=== PATIENT | female | born 1990 | race Two or more races ===

== ENCOUNTER 2016-02-18 20:28 | Outpatient (CLI) | payer SELFPAY ==
[2016-02-18 21:14] LABS: APPEARANCE,URINE SLIGHTLY-CLOUDY; BILIRUBIN,URINE NEGATIVE (NEGATIVE); GLUCOSE, URINE NEGATIVE (NEGATIVE); KETONES,URINE NEGATIVE (NEGATIVE); LEUKOCYTE ESTERASE,URINE LARGE (NEGATIVE); NITRITE,URINE NEGATIVE (NEGATIVE); PROTEIN,URINE NEGATIVE (NEGATIVE); URINE SPECIFIC GRAVITY 1.009; UROBILINOGEN,URINE NEGATIVE mg/dL (<2.0)
[2016-02-18 21:25] LABS: AMNISURE (ROM) NEGATIVE (NEGATIVE)
[2016-02-18 21:35] LABS: URINE BARBITURATES SCREEN NEGATIVE; URINE METHADONE SCREEN NEGATIVE; URINE PHENCYCLIDINE SCREEN NEGATIVE
[2016-02-18] MEDS ORDERED: HYDROXYZINE PAMOATE 50 MG CAPSULE ONE (22:31)
--- NOTE | 2016-02-18 23:15 | Non Stress Test Report ---
Non Stress Test Datetime Report Generated by CPN: 02/18/2016 23:15 DEMOGRAPHIC Test Number: 2 EGA NST: 37.6 INDICATION Indication for Study: Ordered by Provider VITAL SIGNS Temperature - NST: 98.1 Pulse - NST: 86 RESP - NST: 18 NBPSYS NST: 116 NBPDIA NST: 79 URINE RESULTS Urine Protein, NST: Negative Urine Ketones - NST: Negative Urine Glucose - NST: Negative Urine Blood - NST: Negative MONITORING Monitor Explained: Monitor Explained; Test Explained; Patient Verbalized Understanding Time on Monitor: 02/18/2016 20:59 Time off Monitor: 02/18/2016 22:32 NST Duration: 93 NST INTERVENTIONS NST Interventions: PO Hydration Physician Notified NST: Dr. Neilsen BABY A: [id number] BABY A Movement : Present Contraction Frequency : irregular with uterine irritability FHR Baseline : 130 Accelerations : 15X15 Decelerations : None Variability : Moderate 6-25bpm NST Review: Meets Criteria for Reactive NST NST Review and Verified By : Elo Wilde RN NST Results: Reactive NST REPORT Report Trigger: Send Report
--- NOTE | 2016-02-19 04:46 | L&D Discharge Summary ---
OB Discharge Summary Datetime Report Generated by CPN: 02/19/2016 04:45 DISCHARGE DIAGNOSIS Diagnosis/Symptoms: Reassuring Surveillance - Annotate Details; False Labor Gestation: 37.6 Number of Babies in Womb: 1 Parity: 1 DIET/ACTIVITY/RESTRICTIONS Diet: Regular Activity: Normal Activity TEACHING/INSTRUCTIONS/REFERRALS Unable to Give Instructions: patient was provided written instructions in maldivian Instructions Given To: patient Instructions Understood: Patient Verbalized Understanding; Support Person Verbalized Understanding Referrals: None Educational Materials- Other: kick counts and early labor signs given in maldivian verbally with galley cook and on paper DISCHARGE INFORMATION Discharged AMA: No Discharge Date/Time: 02/18/2016 22:48 Discharged To: Home Discharge Provider Name: Dr. Moraes Accompanied By: Child Discharge Method: Wheelchair Condition: Stable FOLLOW UP INFORMATION Follow Up With: [facility] Follow Up On: As Scheduled Follow Up Phone Number: [facility] - Comments: Comfort measures, s/s to report to provider, PO hydration (Annotations: Data stored by Trisha on behalf of user)
--- NOTE | 2016-02-19 04:46 | L&D Admission Assessment ---
LD ADM ASMT Datetime Report Generated by CPN: 02/19/2016 04:45 PATIENT ASSESSMENT Assessment Type: Triage (02/18/2016 20:58:Krista Muir RN) PAIN Pain Scale: 4 (02/18/2016 21:10:Krista Muir RN) Pain Presence: Intermittent (02/18/2016 21:10:Krista Muir RN) Pain Type: Contraction; Pressure; Ache (02/18/2016 21:10:Krista Kossmann, RN) Pain Location: Abdomen (02/18/2016 21:10:Krista Muir RN) CONTRACTIONS Frequency (min): irregular with uterine irritability (02/18/2016 22:30:Krista Muir RN) Frequency (min): irregular with uterine irritability (02/18/2016 22:00:Krista Muir RN) Frequency (min): uterine irritability (02/18/2016 21:30:Krista Muir RN) Duration (sec): 30-170 (02/18/2016 22:30:Krista Muir RN) Duration (sec): 30-70 (02/18/2016 22:00:Krista Muir RN) Quality: Mild (02/18/2016 22:30:Krista Muir RN) Quality: Mild (02/18/2016 22:00:Krista Muir RN) Resting Tone [place]: Relaxed (02/18/2016 22:30:Krista Muir RN) Resting Tone [place]: Relaxed (02/18/2016 22:00:Krista Muir RN) Resting Tone [place]: Relaxed (02/18/2016 21:30:Krista Muir RN) VAGINAL EXAM Dilatation (cm): 1.0 (02/18/2016 22:05:Krista Muir RN) Effacement (%): thick (02/18/2016 22:05:Krista Muir RN) Station: -3 (02/18/2016 22:05:Krista Muir RN) Station: -3 (02/18/2016 21:03:Krista Muir RN) NEURO Level of Consciousness: Fully Conscious (02/18/2016 20:58:Krista Muir RN) DTR's/Clonus: DTRs 2+; No Clonus (02/18/2016 20:58:Krista Muir RN) Headache: Denies (02/18/2016 20:58:Krista Muir RN) Dizziness: No (02/18/2016 20:58:Krista Muir RN) Blurred Vision: No (02/18/2016 20:58:Krista Muir RN) Extremity Numbness/Tingling : None (02/18/2016 20:58:Krista Muir RN) Extremity Movement: Full Range of Motion (02/18/2016 20:58:Krista Muir RN) CARDIOVASCULAR Heart Rhythm: Regular (Annotations: s1s2 on auscultation with no evidence of murmur ) (02/18/2016 20:58:Krista uMir RN) Nailbeds: [place] (02/18/2016 20:58:Krista Muir RN) Capillary Refill: Less than 3 Seconds (02/18/2016 20:58:Krista Muir RN) Lower Extremities Edema: Bilateral Lower Extremities (02/18/2016 20:58:Krista Muir RN) Lower Extremities Edema Degree: mild dependent edema noted at the ankles (02/18/2016 20:58:Krista Muir RN) Upper Extremities Edema: None (02/18/2016 20:58:Krista Muir RN) Upper Extremities Edema Degree: None (02/18/2016 20:58:Krista Muir RN) Facial Edema: None (02/18/2016 20:58:Krista Muir RN) Ara's Sign Left Leg: Negative (02/18/2016 20:58:Krista Muir RN) Ara's Sign Right Leg: Negative (02/18/2016 20:58:Krista Muir RN) DVT RISK ASSESSMENT DVT Risk Age: Age less than 41 years (02/18/2016 20:58:Krista Muir RN) DVT Risk BMI: BMI 31 to 40 (02/18/2016 20:58:Krista Muir RN) DVT Risk Surgery: None Applicable (02/18/2016 20:58:Krista Muir RN) DVT Risk Other: Women Only- or (<1 month) (02/18/2016 20:58:Krista Muir RN) DVT Risk Total: 2 (02/18/2016 20:58:QS system process) DVT Risk Text: Moderate Risk (10-20%) - Consider stockings, compresssion device, pharmacological therapy per hospital policy (02/18/2016 20:58:QS system process) RESPIRATORY Respiratory Effort: Unlabored; Regular Rhythm; Equal Expansion (02/18/2016 20:58:Krista Muir RN) Breath Sounds, Left: Clear and Equal (02/18/2016 20:58:Krista Muir RN) Breath Sounds, Right: Clear and Equal (02/18/2016 20:58:Krista Muir RN) Cough Productivity: None (02/18/2016 20:58:Krista Muir RN) GASTROINTESTINAL Nausea/Vomiting: Hx of Nausea/Vomiting (Annotations: one episode of vomitting daily x 2 days ) (02/18/2016 20:58:Krista Muir RN) Bowel Sounds: Normoactive; All Quadrants (02/18/2016 20:58:Krista Muir RN) RUQ Epigastric Pain: Denies (02/18/2016 20:58:Krista Muir RN) Bowel Patterns: Soft, Formed Stool (02/18/2016 20:58:Krista Muir RN) Hemorrhoids: None (02/18/2016 20:58:Krista Muir RN) Diet Type: Regular diet (02/18/2016 20:58:Krista Muir RN) GENITOURINARY Bladder: Nondistended (02/18/2016 20:58:Krista Muir RN) Frequency of Urination: No (02/18/2016 20:58:Krista Muir RN) Urination Burning: No (02/18/2016 20:58:Krista Muir RN) CVA Tenderness: No (02/18/2016 20:58:Krista Muir RN) Vaginal Discharge Amount: Moderate (02/18/2016 20:58:Krista Muir RN) Vaginal Discharge Color: white to yellow discharge (02/18/2016 20:58:Krista Muir RN) Vaginal Discharge Odor: Non-Odorous (02/18/2016 20:58:Krista Muir RN) Vaginal Discharge Character: Thin; Thick (02/18/2016 20:58:Krista Muir RN) INTEGUMENTARY Skin Color: Normal for Race (02/18/2016 20:58:Krista Muir RN) Skin Temperature: Warm (02/18/2016 20:58:Krista Muir RN) Skin Moisture: Dry (02/18/2016 20:58:Krista Muir RN) RILEY SKIN ASSESSMENT Riley Scale Sensory Perception: No Impairment- Responds to verbal commands. Has no sensory deficit which would limit ability to feel or voice pain or discomfort (02/18/2016 20:58:Krista Muir RN) Riley Scale Moisture: Rarely Moist- Skin is usually dry. Linen only requires changing at routine intervals (02/18/2016 20:58:Krista Muir RN) Riley Scale Activity: Walks Frequently- Walks outside the room at least twice a day and inside room at least every 2 hours during the day. (02/18/2016 20:58:Krista Muir RN) Riley Scale Mobility: No Limitations- Makes major and frequent changes in position without assistance (02/18/2016 20:58:Krista Muir RN) Riley Scale Nutrition: Excellent- Eats most of every meal. Never refuses a meal. Usually eats a total of 4 or more servings of meat and dairy products. Occasionally eats between meals. Does not require supplementation (02/18/2016 20:58:Krista Muir RN) Riley Scale Friction and Shear: No Apparent Problem- Moves in bed and in chair independently and has sufficient muscle strength to lift up completely during move. Maintains good position in bed or chair at all times (02/18/2016 20:58:Krista Muir RN) Riley Scale Total: 23 (02/18/2016 20:58:QS system process) Riley Scale Risk: No Risk of Pressure Ulcer Noted at this Time (02/18/2016 20:58:QS system process) SUPPORT Family Support: Child(john) visited (02/18/2016 20:58:Krista Muir RN) Emotional State: Calm/Relaxed (02/18/2016 20:58:Krista Muir RN) SAFETY Call [place] Within Reach: Yes (02/18/2016 20:58:Krista Muir RN) Side Rails Up: Yes (02/18/2016 20:58:Krista Muir RN) Bed Wheels Locked: Yes (02/18/2016 20:58:Krista Muir RN) Arm Bands Present: Yes (02/18/2016 20:58:Krista Muir RN) Isolation: [place] (02/18/2016 20:58:Krista Muir RN) FALL SCREEN Fall Risk History of Falling: (0) No (02/18/2016 20:58:Krista Muir RN) Fall Risk Secondary Diagnosis: (0) No (02/18/2016 20:58:Krista Muir RN) Fall Risk Ambulatory Aid: (0) None/Bedrest/Wheelchair/Nurse Assist (02/18/2016 20:58:Krista Muir RN) Fall Risk IV Therapy: (0) No (02/18/2016 20:58:Krista Muir RN) Fall Risk Gait: (0) Normal/Bedrest/Immobile (02/18/2016 20:58:Krista Muir RN) Fall Risk Mental Status: (0) Oriented to Own Ability (02/18/2016 20:58:Krista Muir RN) Fall Risk Score: 0 (02/18/2016 20:58:QS system process) Fall Risk Score Definition: No Risk: No action required (02/18/2016 20:58:QS system process) RECENT TRAVEL/INFECTIOUS DISEASE Recent Exp Communicable Disease: No (02/18/2016 20:58:Krista Muir RN) Cough or Fever: No (02/18/2016 20:58:Krista Muir RN) Foreign Travel Past 10 Days: No (02/18/2016 20:58:Krista Muir RN) Open Wounds or Sores: No (02/18/2016 20:58:Krista Muir RN) Prior Antibiotic Resistance Tx: No (02/18/2016 20:58:Krista Muir RN) Cultures Obtained: Not Applicable (02/18/2016 20:58:Krista Muir RN) Isolation Initiated: No (02/18/2016 20:58:Krista Muir RN) Pt/Family Education: Handwashing Hygiene (02/18/2016 20:58:Krista Muir RN) BABY A FHR Baseline Rate (bpm) Baby A: 135 (02/18/2016 22:30:Krista Muir RN) FHR Baseline Rate (bpm) Baby A: 135 (02/18/2016 22:00:Krista Muir RN) FHR Baseline Rate (bpm) Baby A: 130 (02/18/2016 21:30:Krista Muir RN) Variability Baby A: Moderate 6-25 bpm (02/18/2016 22:30:Krista Muir RN) Variability Baby A: Moderate 6-25 bpm (02/18/2016 22:00:Krista Muir RN) Variability Baby A: Moderate 6-25 bpm (02/18/2016 21:30:Krista Muir RN) Accelerations Baby A: 15X15 (02/18/2016 22:30:Krista Muir RN) Accelerations Baby A: 15X15 (02/18/2016 22:00:Krista Muir RN) Accelerations Baby A: 15X15 (02/18/2016 21:30:Krista Muir RN) Decelerations Baby A: None (02/18/2016 22:30:Krista Muir RN) Decelerations Baby A: None (02/18/2016 22:00:Krista Muir RN) Decelerations Baby A: None (02/18/2016 21:30:Krista Muir RN)
--- NOTE | 2016-02-19 04:46 | L&D General Admission ---
General Admit Datetime Report Generated by CPN: 02/19/2016 04:45 INFORMATION Baby, Number in Womb: 1 (02/18/2016 22:48:Krista Kossmann, RN) ALLERGIES Medication Allergies: No Known Allergies (02/18/2016) (02/18/2016 23:24:QS system process)
--- NOTE | 2016-02-19 04:46 | Antepartum Discharge Summary ---
Antepartum DC Datetime Report Generated by CPN: 02/19/2016 04:45 DIET/ACTIVITY/RESTRICTIONS Diet: Regular (02/18/2016 22:48:Krista Muir, RN) Activity: Normal Activity (02/18/2016 22:48:Krista Wood, RN) TEACHING/INSTRUCTIONS/REFERRALS Instructions Given To: patient (02/18/2016 22:48:Krista Muir, RN) Instructions Understood: Patient Verbalized Understanding; Support Person Verbalized Understanding (02/18/2016 22:48:Krista Muir RN) Unable to Give Instructions: patient was provided written instructions in cook islander (02/18/2016 22:48:Krista Muir RN) Referrals: None (02/18/2016 22:48:Krista Muir RN) Educational Materials- Other: kick counts and early labor signs given in cook islander verbally with health and wellness advisor and on paper (02/18/2016 22:48:Krista Muir RN) DISCHARGE INFORMATION Discharged AMA: No (02/18/2016 22:48:Krista Muir RN) Discharge Date/Time: 02/18/2016 22:48 (02/18/2016 22:48:Krista Muir RN) Discharged To: Home (02/18/2016 22:48:Krista Muir RN) Discharge Provider Name: Dr. Moraes (02/18/2016 22:48:Krista Muir RN) Discharge Method: Wheelchair (02/18/2016 22:48:Krista Muir RN) Condition: Stable (02/18/2016 22:48:Krista Muir RN) FOLLOW UP INFORMATION Follow Up With: [facility] Department (02/18/2016 22:48:Krista Muir RN) Follow Up On: As Scheduled (02/18/2016 22:48:Krista Muir RN)
--- NOTE | 2016-02-19 04:46 | L&D Flow Sheet ---
LD Flowsheet Datetime Report Generated by CPN: 02/19/2016 04:45 Datetime: 02/18/2016 22:48 Communication Additional Nursing Comments: Discharged home via wheelchair (Krista Kossmann, RN) Datetime: 02/18/2016 22:40 Medications Analgesics/Sedatives: vistaril 50mg po (Krista Kossmann, RN) Datetime: 02/18/2016 22:30 Uterine Activity Monitor Mode: External; Palpation (Krista Kossmann, RN) Frequency (min): irregular with uterine irritability (Krista Kossmann, RN) Quality: Mild (Krista Kossmann, RN) Duration (sec): 30-170 (Krista Kossmann, RN) Resting Tone (Palpate): Relaxed (Krista Kossmann, RN) Assessment A Monitor Mode: External US (Krista Peymansmann, RN) FHR Baseline Rate : 135 (Krista Kossmann, RN) Variability: Moderate 6-25 bpm (Krista Kossmann, RN) Accelerations: 15X15 (Krista Kossmann, RN) Decelerations: None (Krista Kossmann, RN) Datetime: 02/18/2016 22:21 Communication Comments: Dr. Moraes aware of patient status, sve, amnisure negative, ua results. Orders to discharge home with vistaril 50mg po (Krista Peymansmann, RN) Datetime: 02/18/2016 22:10 Vital Signs NBP Sys/Arlin/Mean (mmHg): 116 (QS system process) : 79 (QS system process) : 91 (QS system process) Pulse: 86 (QS system process) LaborFlag: Antepartum (QS system process) Datetime: 02/18/2016 22:05 Vaginal Exam Dilatation (cm): 1.0 (Krista Muir RN) Effacement (%): thick (Krista Muir RN) Station: -3 (Krista Muir RN) Exam by: MADELINE Muir (Annotations: old blood noted on glove during sve) (Krista Muir RN) Datetime: 02/18/2016 22:00 Uterine Activity Monitor Mode: External; Palpation (Krista Muir RN) Frequency (min): irregular with uterine irritability (Krista Muir RN) Quality: Mild (Krista Muir RN) Duration (sec): 30-70 (Krista Kossmann, RN) Resting Tone (Palpate): Relaxed (Krista Somann, RN) Assessment A Monitor Mode: External US (Krista Somann, RN) FHR Baseline Rate : 135 (Krista Peymansmann, RN) Variability: Moderate 6-25 bpm (Krista Peymansmann, RN) Accelerations: 15X15 (Krista Peymansmann, RN) Decelerations: None (Krista Peymansmann, RN) Datetime: 02/18/2016 21:41 Vital Signs NBP Sys/Arlin/Mean (mmHg): 121 (QS system process) : 70 (QS system process) : 90 (QS system process) Pulse: 83 (QS system process) LaborFlag: Antepartum (QS system process) Datetime: 02/18/2016 21:30 Uterine Activity Monitor Mode: External; Palpation (Krista Muir RN) Frequency (min): uterine irritability (Krista Muir RN) Resting Tone (Palpate): Relaxed (Krista Muir, RN) Assessment A Monitor Mode: External US (Krista Muir, RN) FHR Baseline Rate : 130 (Krista Muir, RN) Variability: Moderate 6-25 bpm (Kristakelsy Muir, RN) Accelerations: 15X15 (Krista Peymansmann, RN) Decelerations: None (Krista Muir, RN) Datetime: 02/18/2016 21:10 Vital Signs NBP Sys/Arlin/Mean (mmHg): 121 (QS system process) : 74 (QS system process) : 92 (QS system process) Pulse: 77 (QS system process) Respirations: 18 (Krista Muir, RN) Pain Pain Scale: 4 (Krista Muir, RN) Pain Presence: Intermittent (Krista Muir, RN) Pain Type: Contraction; Pressure; Ache (Krista Muir, RN) Pain Location: Abdomen (Krista Muir, RN) Pain Relief Measures: Comfort Measures (Krista Muir, RN) Pain Coping: Talking Through Contractions; Breathing Through Contractions (Krista Muir, RN) LaborFlag: Antepartum (QS system process) Datetime: 02/18/2016 21:03 Station: -3 (Krista Muir, RN) Exam by: Ar Muir (Gia Ring, RN) Vaginal Bleeding: None (Gia Ring, RN) Cervix, Consistency: Soft (Gia Ring, RN) Cervix, Position: Posterior (Gia Ring, RN) Vaginal Exam Comments: 1.5 (outer os); 1 (inner os)/thick and long (Krista Muir, RN) Datetime: 02/18/2016 20:58 Vaginal Bleeding: Scant (Annotations: patient states spotting ) (Krista Muir RN) Maternal Assessment Level of Consciousness: Fully Conscious (Krista Muir RN) DTR's/Clonus: DTRs 2+; No Clonus (Krista Muir RN) Headache: Denies (Krista Muir RN) Breath Sounds, Left: Clear and Equal (Krista Muir RN) Breath Sounds, Right: Clear and Equal (Krista Muir RN) Nausea/Vomiting: Hx of Nausea/Vomiting (Annotations: one episode of vomitting daily x 2 days ) (Krista Muir RN) RUQ Epigastric Pain: Denies (Krista Muir RN)
--- NOTE | 2016-02-19 04:46 | L&D Current Admission ---
Current Admit Datetime Report Generated by CPN: 02/19/2016 04:45 ADMISSION INFORMATION Chief Complaint: Contractions; Suspected Rupture of Membranes (02/18/2016 20:58:Krista Muir RN)
== END 2016-02-18 22:48 | disposition home or self-care (01) ==
LOC: LC 20:28
PROVIDERS: ATTEND Specialist
PROC: 4A1HXCZ Monitoring of Products of Conception, Cardiac Rate, External Approach (ICD-10-PCS; principal; 2016-02-18)
DX: O47.1 False labor at or after 37 completed weeks of gestation (principal); Z3A.37 37 weeks gestation of pregnancy
CPT/HCPCS: 59025; 84112; 81005; G0479; 80307

== ENCOUNTER 2016-02-23 09:35 | Outpatient (CLI) | payer SELFPAY ==
[2016-02-23 10:14] LABS: APPEARANCE,URINE TURBID; BILIRUBIN,URINE NEGATIVE (NEGATIVE); GLUCOSE, URINE NEGATIVE (NEGATIVE); KETONES,URINE NEGATIVE (NEGATIVE); LEUKOCYTE ESTERASE,URINE LARGE (NEGATIVE); NITRITE,URINE NEGATIVE (NEGATIVE); PROTEIN,URINE 30 mg/dL (NEGATIVE); URINE SPECIFIC GRAVITY 1.009; UROBILINOGEN,URINE NEGATIVE mg/dL (<2.0)
[2016-02-23 10:32] LABS: AMNISURE (ROM) NEGATIVE (NEGATIVE)
[2016-02-23 10:41] LABS: URINE BARBITURATES SCREEN NEGATIVE; URINE METHADONE SCREEN NEGATIVE; URINE PHENCYCLIDINE SCREEN NEGATIVE
--- NOTE | 2016-02-23 10:59 | Non Stress Test Report ---
Non Stress Test Datetime Report Generated by CPN: 02/23/2016 10:59 DEMOGRAPHIC EGA NST: 38.4 INDICATION Indication for Study: Other Indication for Study (NST) Other: LC MONITORING Monitor Explained: Monitor Explained; Test Explained; Patient Verbalized Understanding Time on Monitor: 02/23/2016 10:27 Time off Monitor: 02/23/2016 10:57 NST Duration: 30 NST INTERVENTIONS NST Interventions: PO Hydration; Reposition Patient Physician Notified NST: ABIMAEL BABY A Movement : Present Contraction Frequency : 8-10 FHR Baseline : 130 Accelerations : 15X15 Decelerations : None Variability : Moderate 6-25bpm NST Review: Meets Criteria for Reactive NST NST Review and Verified By : Millie Grayson RN NST Results: Reactive NST REPORT Report Trigger: Send Report
--- NOTE | 2016-02-26 11:01 | Antepartum Discharge Summary ---
Antepartum DC Datetime Report Generated by CPN: 02/26/2016 11:01 Diet: Regular (02/23/2016 10:59:Tonny Grayson RN) Activity: Normal Activity (02/23/2016 10:59:Tonny Grayson RN) Instructions Given To: PT (02/23/2016 10:59:Tonny Grayson RN) Instructions Understood: Patient Verbalized Understanding; Support Person Verbalized Understanding (02/23/2016 10:59:Tonny Grayson RN) Referrals: None (02/23/2016 10:59:Tonny Grayson RN) Educational Materials- Other: Kick Counts Early Labor Signs (02/23/2016 10:59:Tonny Grayson RN) Discharged AMA: No (02/23/2016 10:59:Tonny Grayson RN) Discharge Date/Time: 02/23/2016 11:15 (02/23/2016 10:59:Winifred Andrade RN) Discharged To: Home (02/23/2016 10:59:Tonny Grayson RN) Discharge Provider Name: Eli Fish CNM (02/23/2016 10:59:Tonny Grayson RN) Discharge Method: Ambulatory (02/23/2016 10:59:Tonny Grayson RN) Condition: Stable (02/23/2016 10:59:Tonny Grayson RN) Follow Up With: [facility] (02/23/2016 10:59:Tonny Grayson RN) Follow Up On: As Scheduled (02/23/2016 10:59:Tonny Grayson RN) Follow Up Phone Number: [facility] - (02/23/2016 10:59:Tonny Grayson RN) Comments: Provider aware of pain stated / (02/23/2016 10:59:Winifred Andrade RN) Contractions: Contractions or cramps become more frequent than 8 in one hour or 4 in 20 minutes; Regular painful contractions every 5 minutes or less for one hour. Time your contractions from the beginning of one to the beginning of the next (02/23/2016 10:59:Tonny Grayson RN) Pressure: Pressure in your vagina or lower abdomen that may feel like the baby is pushing down (02/23/2016 10:59:Tonny Grayson RN) Period Like Cramps: Period-like cramps or low dull backache that may come and go (02/23/2016 10:59:Tonny Grayson RN) Cramps/Diarrhea: Abdominal cramps that may be accompanied by diarrhea (02/23/2016 10:59:Tonny Grayson RN) Gush of Fluid/Blood: Gush of fluid or blood from your vagina (it is normal to have spotting after vaginal exam or intercourse) (02/23/2016 10:59:Tonny Grayson RN) Vaginal Discharge: Change in the type or amount of vaginal discharge (02/23/2016 10:59:Tonny Grayson RN) Decreased Movement: Your baby is not moving as much as usual- 4 movements in 1 hour after drinking and resting on side (02/23/2016 10:59:Tonny Grayson RN) Temperature: Temperature greater than 100.0(F) orally (02/23/2016 10:59:Tonny Grayson RN) Hypertension Signs/Symptoms: Severe headache which is not relieved 30 minutes after taking Tylenol(Acetaminophen); Blurry vision or spots before your eyes; Severe heartburn or pain on the upper right side of your abdomen that is not relieved by an antacid; Increased swelling in your face, hands or feet (02/23/2016 10:59:Tonny Grayson RN) Urinary Output: Decreased urinary output or dark colored urine (02/23/2016 10:59:Tonny Grayson RN) N/V [place]/Crackers: Keep dry toast/crackers with you to [facility] on (02/23/2016 10:59:Tonny Grayson RN) N/V Frequent Meals: Eat small frequent meals (02/23/2016 10:59:Tonny Grayson RN) N/V Empty Stomach: Try to keep something in your stomach (don't let your stomach get empty) (02/23/2016 10:59:Tonny Grayson RN) N/V Time Getting Up: Take your time getting up (02/23/2016 10:59:Tonny Grayson RN) N/V Avoid Smells: Avoid smells that make you feel sick (02/23/2016 10:59:Tonny Grayson RN) Travel Seatbelts: Wear seatbelts or safety/lap belts (02/23/2016 10:59:Tonny Grayson RN) Travel Walk Frequently: Walk frequently, every 1-2 hours (02/23/2016 10:59:Tonny Grayson RN) Travel Comfort Clothes: Wear clothing that does not constrict and comfortable shoes (02/23/2016 10:59:Tonny Grayson RN) Travel Light Snack: Keep a light snack (e.g. dry crackers) with you at all times to prevent nausea (02/23/2016 10:59:Tonny Grayson RN) Travel Hydration: Drink plenty of water, low sodium and noncaffeinated drinks (02/23/2016 10:59:Tonny Grayson RN) Travel Medications: DO NOT take any medication that is not approved by your physician first (02/23/2016 10:59:Tonny Grayson RN) Travel PN Records: Always keep a copy of your medical record with you just in case (02/23/2016 10:59:Tonny Grayson RN) Edema Avoid Standing: Avoid standing for long periods, keep legs up when you can (02/23/2016 10:59:Tonny Grayson RN) Edema Rest on Side: When resting, lie on your side (left is best) (02/23/2016 10:59:Tonny Grayson RN) Edema Limit Sodium: Limit the amount of salty foods you eat (02/23/2016 10:59:Tonny Grayson RN) Edema Support Hose: Try to wear support hose as much as possible (02/23/2016 10:59:Tonny Grayson RN) Exercise Overheating: Avoid situations that would cause you to become overheated (02/23/2016 10:59:Tonny Grayson RN) Exercise Weather: Exercise outdoors only if the weather is reasonable and not too hot (02/23/2016 10:59:Tonny Grayson RN) Exercise Exertion: Do not over exert yourself when you exercise (02/23/2016 10:59:Tonny Grayson RN) Exercise Hydration: Drink plenty of fluids, especially water (02/23/2016 10:59:oTnny Grayson RN) Exercise Support: Wear good support hose, bra and shoes when exercising (02/23/2016 10:59:Tonny Grayson RN) Varicose Veins Instructions: Do not stand for long periods of time (02/23/2016 10:59:Tonny Grayson RN) Varicose Veins Elevate Sit: Try to keep your legs elevated when you are sitting (02/23/2016 10:59:Tonny Grayson RN) Varicose Veins Elevate Lying: When lying down, keep your legs elevated (02/23/2016 10:59:Tonny Grayson RN) Varicise Veins Non Binding: When wearing stockings or socks, make sure they are not too tight and bind your legs (02/23/2016 10:59:Tonny Grayson RN) Varicose Veins Support: Wear support hose/stockings at all times (02/23/2016 10:59:Tonny Grayson RN) Varicose Veins Periodic Move: If you have a job where you sit a lot, get up periodically and walk around (02/23/2016 10:59:Tonny Grayson RN)
--- NOTE | 2016-02-26 11:02 | L&D General Admission ---
General Admit Datetime Report Generated by CPN: 02/26/2016 11:02 INFORMATION Patient Age: 25 (11/07/2015 16:59:QS system process) EDC: 03/04/2016 00:00 (11/07/2015 17:09:Chester Burk RN) : 2 (11/07/2015 17:09:Chester Burk RN) Para: 1 (02/23/2016 10:59:Winifred Andrade RN) Para: 1 (02/03/2016 17:57:Winifred Will RN) Para: 1 (11/07/2015 17:09:Chester Burk RN) Term: 1 (11/07/2015 17:09:Chester Burk RN) : 0 (11/07/2015 17:09:Chester Burk RN) Spontaneous Abortions: 0 (11/07/2015 17:09:Chester Burk RN) Induced Abortions: 0 (11/07/2015 17:09:Chester Burk RN) Livin (11/07/2015 17:09:Chester Burk RN) Cesareans: 0 (11/07/2015 17:09:Chester Burk RN) VBACs: 0 (11/07/2015 17:09:Chester Burk RN) Ectopic: 0 (11/07/2015 17:09:Chester Burk RN) Multiple Births: 0 (11/07/2015 17:09:Chester Burk RN) Baby, Number in Womb: 1 (02/23/2016 10:59:Winifred Andrade RN) Baby, Number in Womb: 1 (02/18/2016 22:48:Krista Muir RN) Baby, Number in Womb: 1 (02/03/2016 17:57:Winifred Will RN) Baby, Number in Womb: 1 (11/07/2015 17:09:Chester Burk RN) CARE Primary Human Service Worker: [facility] (11/07/2015 17:09:Chester Burk RN) Adequate Care: Yes (11/07/2015 17:09:Winifred Will RN) Height (in): 62 (02/23/2016 10:18:QS system process) Height (in): 61 (02/03/2016 16:32:QS system process) Height (in): 61 (02/03/2016 16:28:QS system process) ALLERGIES Medication Allergy: No (11/07/2015 17:09:Chester Burk RN) Medication Allergies: No Known Allergies (02/23/2016) (02/23/2016 10:18:QS system process) Medication Allergies: No Known Allergies (02/18/2016) (02/18/2016 23:24:QS system process) Medication Allergies: No Known Allergies (02/03/2016) (02/03/2016 16:25:QS system process) Medication Allergies: No Known Allergies (11/07/2015) (11/07/2015 19:20:QS system process) Medication Allergies: No Known Allergies (07/25/2015) (11/07/2015 16:59:QS system process) Food Allergies: None (11/07/2015 17:09:Winifred Will RN) Environmental Allergies: None (11/07/2015 17:09:Winifred Will RN) COMMUNICATION Primary Language: Hong Konger (11/07/2015 17:09:Chester Burk RN) Medical Tx Preferred Language: Hong Konger; Castilian (11/07/2015 17:09:Chester Burk RN) Syriac Communication Ability: 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, 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 (11/07/2015 17:09:Chester Burk RN) Communication Barrier(s): Language barrier (11/07/2015 17:09:Chester Burk RN) DEMOGRAPHICS Address: [address] [place] [id number] (11/07/2015 16:59:QS system process) Zipcode: [phone] (11/07/2015 16:59:QS system process) Home (11/07/2015 16:59:QS system process) SSN: [id number] (11/07/2015 16:59:QS system process) Next of Kin Name: ELIN CLAROS (11/07/2015 16:59:QS system process) Next of Kin (11/07/2015 16:59:QS system process) Next of Kin Relationship: SPO (11/07/2015 16:59:QS system process) Date of : 1990 (11/07/2015 16:59:QS system process) Marital Status: Single (11/07/2015 16:59:QS system process) Sex: Female (11/07/2015 16:59:QS system process) Race: Other (11/07/2015 16:59:QS system process) Ethnicity: or (11/07/2015 16:59:QS system process) Sabianist: Other (11/07/2015 16:59:QS system process) DRUG AND ALCOHOL USE Alcohol: No (11/07/2015 17:09:Winifred Will RN) Cigarettes: Never Smoker. [id number] (11/07/2015 17:09:Winifred Will RN) Marijuana: No (11/07/2015 17:09:Winifred Will RN) Cocaine: No (11/07/2015 17:09:Winifred Will RN) Other Illicit Drugs: No (11/07/2015 17:09:Winifred Will RN) VACCINE HISTORY Influenza Vaccine: Yes (11/07/2015 17:09:Gia Ring, RN) Tetanus Vaccine: Yes (11/07/2015 17:09:Gia Ring, RN) Tdap Vaccine: Yes (11/07/2015 17:09:Gia Ring, RN) Hepatitis B Vaccine: No (11/07/2015 17:09:Gia Ring, RN) Applications Developer: [facility] (11/07/2015 17:09:Gia Houston RN) Feeding Preference: Both (11/07/2015 17:09:Gia Houston RN) Benefit of Breast Feed Discussed: Yes (11/07/2015 17:09:Gia Houston RN) Circumcision: No (11/07/2015 17:09:Gia Houston RN) Tubal Ligation: No (11/07/2015 17:09:Gia Houston RN) Tubal Authorization Signed: N/A (11/07/2015 17:09:Gia Houston RN) Consent: N/A (11/07/2015 17:09:Gia Houston RN) Consent Signed: N/A (11/07/2015 17:09:Gia Houston RN) Pain Management Plans: Natural; Medications (11/07/2015 17:09:Gia Houston RN) Plans for Labor and Delivery: None (11/07/2015 17:09:Gia Houston RN) Support Person: Markel (11/07/2015 17:09:Gia Houston RN) Support Person Relationship: (11/07/2015 17:09:Gia Houston RN) Cultural/Spritual Practice: No (11/07/2015 17:09:Gia Houston RN) Spir/Cult Dietary Needs: No (11/07/2015 17:09:Gia Houston RN) LIVING SITUATION/DISCHARGE PLAN Living Arrangements: House (11/07/2015 17:09:Gia Houston RN) Adequate Access to:: Electric; Heat; Refrigeration; Plumbing/Running water; Phone; Transportation (11/07/2015 17:09:Gia Houston RN) WIC Program: No (11/07/2015 17:09:Gia Houston RN) Discharge Lead Front Desk Agent Person: Markel (11/07/2015 17:09:Gia Houston RN) Person to Help after Discharge: Markel (11/07/2015 17:09:Gia Houston RN) Currently Using Commun Resources: No (11/07/2015 17:09:Gia Houston RN) Outside Agency/Test Designer: N/A (11/07/2015 17:09:Gia Houston RN) Car Seat for Discharge: Yes (11/07/2015 17:09:Gia Houston RN) Adoption Requested: Yes (11/07/2015 17:09:Gia Houston RN) Pt Contact w/infant Post : N/A (11/07/2015 17:09:Gia Houston RN) OB/PREVIOUS HISTORY Previous Procedures: Ultrasound (11/07/2015 17:09:Winifred Will RN) Current Procedures: Ultrasound (11/07/2015 17:09:Winifred Will RN) History of Previous : No (11/07/2015 17:09:Winifred Will RN) History of Gestational Diabetes: No (11/07/2015 17:09:Winifred Will RN) History of PIH: No (11/07/2015 17:09:Winifred Will RN) History of Incompetent Cervix: No (11/07/2015 17:09:Winifred Will RN) History of Placenta Previa/Abrup: No (11/07/2015 17:09:Winifred Will RN) History of Macrosomia: No (11/07/2015 17:09:Winifred Will RN) History of IUGR: No (11/07/2015 17:09:Winifred Will RN) History of Hemorrhage: No (11/07/2015 17:09:Winifred Will RN) History of Loss/Stillborn: No (11/07/2015 17:09:Winifred Will RN) History of : No (11/07/2015 17:09:Winifred Will RN) History of D (Rh) Sensitization: No (11/07/2015 17:09:Winifred Will RN) History Recurrent Loss/Stillborn: No (11/07/2015 17:09:Winifred Will RN) History Depression/PP Depression: No (11/07/2015 17:09:Winifred Will RN) History of Uterine Anomaly/JENNIFFER: No (11/07/2015 17:09:Winifred Will RN) History of Infertility: No (11/07/2015 17:09:Winifred Will RN) History of ART Treatment: No (11/07/2015 17:09:Winifred Will RN) History of JENNIFFER: No (11/07/2015 17:09:Winifred Will RN) Comments Obstetrical History: G1 - 05/2009 - at 38wks, 3.249kg (in [facility]) G2 - current (11/07/2015 17:09:Gia Houston RN) MEDICAL HISTORY Med Hx Diabetes: No (11/07/2015 17:09:Winifred Will RN) Med Hx Hypertension: No (11/07/2015 17:09:Winifred Will RN) Med Hx Heart Disease: No (11/07/2015 17:09:Winifred Will RN) Med Hx Autoimmune Disorder: No (11/07/2015 17:09:Winifred Will RN) Med Hx Kidney Disease/UTI: No (11/07/2015 17:09:Winifred Will RN) Med Hx Neurologic/Epilepsy: No (11/07/2015 17:09:Winifred Will RN) Med Hx Psychiatric Disorders: No (11/07/2015 17:09:Winifred Will RN) Med Hx Hepatitis/Liver Disease: No (11/07/2015 17:09:Winifred Will RN) Med Hx Varicosities/Phlebitis: No (11/07/2015 17:09:Winifred Will RN) Med Hx Thyroid Dysfunction: No (11/07/2015 17:09:Winifred Will RN) Med Hx Trauma/Violence: No (11/07/2015 17:09:Winifred Will RN) Med Hx Blood Transfusion: No (11/07/2015 17:09:Winifred Will RN) Med Hx Pulmonary (Asthma,TB): No (11/07/2015 17:09:Winifred Will RN) Med Hx Breast: No (11/07/2015 17:09:Winifred Will RN) Med Hx INFORMATION SCIENTIST Surgery: No (11/07/2015 17:09:Winifred Will RN) Med Hx Hospitalization/Surgery: Yes (11/07/2015 17:09:Gia Houston RN) Med Hx Anesthetic Complications: No (11/07/2015 17:09:Winifred Will RN) Med Hx Abnormal Pap Smear: No (11/07/2015 17:09:Winifred Will RN) Other Medical Diseases: No (11/07/2015 17:09:Winifred Will RN) Med Hx Significant Family Hx: No (11/07/2015 17:09:Winifred Will RN) Details of Med/Surg Hx: Hospitalized for first (11/07/2015 17:09:Gia Houston RN) INFECTIOUS HISTORY Inf Hx Gonorrhea: No (11/07/2015 17:09:Winifred Will RN) Inf Hx Chlamydia: No (11/07/2015 17:09:Winifred Will RN) Inf Hx Syphilis: No (11/07/2015 17:09:Winifred Will RN) Inf Hx HIV/AIDS: No (11/07/2015 17:09:Winifred Will RN) Inf Hx Human Papilloma Virus: No (11/07/2015 17:09:Winifred Will RN) Inf Hx Pt/Partner Genital Herpes: No (11/07/2015 17:09:Winifred Will RN) Inf Hx Tuberculosis/Exposure: No (11/07/2015 17:09:Winifred Will RN) Inf Hx Hepatitis B,C: No (11/07/2015 17:09:Winifred Will RN) Inf Hx Rash or Viral Illness: No (11/07/2015 17:09:Winifred Will RN) GENETIC HISTORY Gen Hx Age >=35 at DANK: No (11/07/2015 17:09:Winifred Will RN) Gen Hx Thalassemia: No (11/07/2015 17:09:Winifred Will RN) Gen Hx Congenital Heart Defect: No (11/07/2015 17:09:Winifred Will RN) Gen Hx Neural Tube Defect: No (11/07/2015 17:09:Winifred Will RN) Gen Hx Down's Syndrome: No (11/07/2015 17:09:Winifred Will RN) Gen Hx Davey-Sachs: No (11/07/2015 17:09:Winifred Will RN) Gen Hx Tami: No (11/07/2015 17:09:Winifred Will RN) Gen Hx Familial Dysautonomia: No (11/07/2015 17:09:Winifred Will RN) Gen Hx Sickle Cell Disease/Trait: No (11/07/2015 17:09:Winifred Will RN) Gen Hx Hemophilia/Blood Disorder: No (11/07/2015 17:09:Winifred Will RN) Gen Hx Muscular Dystrophy: No (11/07/2015 17:09:Winifred Will RN) Gen Hx Cystic Fibrosis: No (11/07/2015 17:09:Winifred Will RN) Gen Hx Huntingtons Chorea: No (11/07/2015 17:09:Winifred Will RN) Gen Hx Mental Retardation/Autism: No (11/07/2015 17:09:Winifred Will RN) Gen Hx Tested for Fragile X: No (11/07/2015 17:09:Winifred Will RN) Gen Hx Other Inher/Chromosomal: No (11/07/2015 17:09:Winifred Will RN) Gen Hx Maternal Metabolic DO: No (11/07/2015 17:09:Winifred Will RN) Gen Hx Pt Father or FOB Defect: No (11/07/2015 17:09:Winifred Will RN) Gen Hx Other Genetic History: No (11/07/2015 17:09:Winifred Will RN) Gen Hx Drugs/Meds since LMP: Yes (11/07/2015 17:09:Gia Houston RN) Gen Hx Medications: pnv, tums, tylenol (11/07/2015 17:09:Gia Houston RN)
--- NOTE | 2016-02-26 11:02 | L&D Flow Sheet ---
LD Flowsheet Datetime Report Generated by CPN: 02/26/2016 11:02 Datetime: 02/23/2016 11:15 Communication Comments: D/C reviewed in Bahamian. Kick Counts and term instructions given. Pt has no questions at this time. Pt ambulated off floor in stable condition (Winifred Andrade RN) Datetime: 02/23/2016 11:04 Dilatation (cm): 2.5 (Winifred Andrade RN) Effacement (%): 50 (Winifred Andrade RN) Station: -3 (Winifred Andrade RN) Exam by: Elo Andrade RN (Winifred Andrade RN) Communication Comments: Monitors removed (Winifred Andrade RN) Datetime: 02/23/2016 11:02 Communication Comments: Orders to recheck cervix and send home if unchanged per H. Abe CNM (Winifred Andrade RN) Datetime: 02/23/2016 11:00 Monitor Mode: External (Winifred Andrade RN) Frequency (min): 8-10 (Winifred Andrade RN) Quality: Mild (Winifred Andrade RN) Duration (sec): 80-90 (Winifred Andrade RN) Resting Tone (Palpate): Relaxed (Winifred Andrade RN) Monitor Mode: External US (Winifred Andrade RN) FHR Baseline Rate : 135 (Winifred Andrade RN) Variability: Moderate 6-25 bpm (Winifred Andrade RN) Accelerations: 15X15 (Winifred Andrade RN) Decelerations: None (Winifred Andrade RN) Datetime: 02/23/2016 10:43 NBP Sys/Arlin/Mean (mmHg): 116 (QS system process) : 75 (QS system process) : 90 (QS system process) Pulse: 70 (QS system process) LaborFlag: Antepartum (QS system process) Datetime: 02/23/2016 10:30 Monitor Mode: External (Winifred Andrade, RN) Frequency (min): 6-10 with uterine irritability (Winifred Andrade, RN) Quality: Mild (Winifred Andrade, RN) Duration (sec): 60-100 (Winifred Andrade, RN) Resting Tone (Palpate): Relaxed (Winifred Andrade, RN) Monitor Mode: External US (Winifred Andrade, RN) FHR Baseline Rate : 135 (Winifred Andrade, RN) Variability: Moderate 6-25 bpm (Winifred Andrade, RN) Accelerations: 15X15 (Winifred Andrade, RN) Decelerations: None (Winifred Andrade, RN) Datetime: 02/23/2016 10:25 Patient Position/Activity: Left Lateral (Winifred Andrade RN) Datetime: 02/23/2016 10:13 Frequency (min): Pt states 15-20 minute apart (Winifred Andrade RN) Pain Scale: 4 (Winifred Andrade RN) Pain Presence: Intermittent (Winifred Andrade RN) Pain Type: Contraction (Winifred Andrade RN) Pain Location: Abdomen (Winifred Andrade RN) Dilatation (cm): 2.5 (Winifred Andrade RN) Effacement (%): 50 (Winifred Andrade RN) Station: -3 (Winifred Andrade, RN) Exam by: Elo Andrade RN (Winifred Andrade, RN) Vaginal Bleeding: None (Winifred Andrade RN) Level of Consciousness: Fully Conscious (Winifred Andrade RN) DTR's/Clonus: DTRs 2+; No Clonus (Winifred Andrade, RN) Headache: Denies (Winifred Andrade RN) Breath Sounds, Left: Clear and Equal (Winifred Andrade RN) Breath Sounds, Right: Clear and Equal (Winifred Andrade RN) Nausea/Vomiting: Denies (Winifred Andrade RN) RUQ Epigastric Pain: Denies (Winifred Andrade, RN) Instructional Method: Verbal; Patient Instructed; Verbalized Understanding (Winifred Andrade RN) Plan of Care: Plan of Care Discussed (Winifred Andrade RN) Unit Routine: Maribel to Room; Call Benson; Bed; Handwashing; Monitoring; Bathroom Privileges (Winifred Andrade RN) LaborFlag: Antepartum (QS system process) Datetime: 02/23/2016 10:12 NBP Sys/Arlin/Mean (mmHg): 122 (QS system process) : 79 (QS system process) : 95 (QS system process) Pulse: 78 (QS system process) LaborFlag: Antepartum (QS system process) Datetime: 02/23/2016 10:00 Patient Position/Activity: Right Lateral (Winifred Andrade RN) I/O Interventions: Clear Liquids Given (Winifred Andrade RN)
--- NOTE | 2016-02-26 11:02 | L&D Current Admission ---
Current Admit Datetime Report Generated by CPN: 02/26/2016 11:01 Chief Complaint: Contractions (02/23/2016 10:13:Winifred Andrade RN)
--- NOTE | 2016-02-26 11:04 | L&D Discharge Summary ---
OB Discharge Summary Datetime Report Generated by CPN: 02/26/2016 11:03 DISCHARGE DIAGNOSIS Diagnosis/Symptoms: False Labor Gestation: 38.4 Number of Babies in Womb: 1 Parity: 1 DIET/ACTIVITY/RESTRICTIONS Diet: Regular Activity: Normal Activity TEACHING/INSTRUCTIONS/REFERRALS Unable to Give Instructions: patient was provided written instructions in japanese Instructions Given To: PT Instructions Understood: Patient Verbalized Understanding; Support Person Verbalized Understanding Referrals: None Educational Materials- Other: Kick Counts Early Labor Signs DISCHARGE INFORMATION Discharged AMA: No Discharge Date/Time: 02/23/2016 11:15 Discharged To: Home Discharge Provider Name: H Abe CNM Accompanied By: Child Discharge Method: Ambulatory Condition: Stable FOLLOW UP INFORMATION Follow Up With: [facility] Follow Up On: As Scheduled Follow Up Phone Number: [facility] - Comments: Provider aware of pain stated 4/5 GENERAL INSTR-CALL PROVIDER IF: Contractions: Contractions or cramps become more frequent than 8 in one hour or 4 in 20 minutes; Regular painful contractions every 5 minutes or less for one hour. Time your contractions from the beginning of one to the beginning of the next Pressure: Pressure in your vagina or lower abdomen that may feel like the baby is pushing down Period Like Cramps: Period-like cramps or low dull backache that may come and go Cramps/Diarrhea: Abdominal cramps that may be accompanied by diarrhea Gush of Fluid/Blood: Gush of fluid or blood from your vagina (it is normal to have spotting after vaginal exam or intercourse) Vaginal Discharge: Change in the type or amount of vaginal discharge Decreased Movement: Your baby is not moving as much as usual- 4 movements in 1 hour after drinking and resting on side Temperature: Temperature greater than 100.0(F) orally
== END 2016-02-23 11:15 | disposition home or self-care (01) ==
LOC: LC 09:35
PROVIDERS: ATTEND Obstetrics & Gynecology
PROC: 4A1HXCZ Monitoring of Products of Conception, Cardiac Rate, External Approach (ICD-10-PCS; principal; 2016-02-23)
DX: O47.1 False labor at or after 37 completed weeks of gestation (principal); Z3A.38 38 weeks gestation of pregnancy
CPT/HCPCS: 59025; 80307; 81005; 84112

== ENCOUNTER 2016-02-28 19:17 | Outpatient (CLI) | payer SELFPAY ==
--- NOTE | 2016-02-28 20:00 | L&D Flow Sheet ---
LD Flowsheet Datetime Report Generated by CPN: 02/28/2016 20:00 Datetime: 02/28/2016 19:45 Dilatation (cm): 3.0 (Crystal Butte, RN) Effacement (%): 50 (Crystal Stephan, RN) Station: -2 (Crystal Butte, RN) Exam by: C. Stephan, RN (Crystal Stephan, RN) Datetime: 02/28/2016 19:40 NBP Sys/Arlin/Mean (mmHg): 117 (QS system process) : 80 (QS system process) : 95 (QS system process) Pulse: 85 (QS system process) LaborFlag: Antepartum (QS system process) Datetime: 02/28/2016 19:27 Frequency (min): 5-10 minutes (Tabitha Rothman RN) Level of Consciousness: Fully Conscious (Tabitha Rothman RN) DTR's/Clonus: DTRs 1+; No Clonus (Tabitha Rothman RN) Breath Sounds, Left: Clear and Equal (Tabitha Rothman RN) Breath Sounds, Right: Clear and Equal (Tabitha Rothman RN) Nausea/Vomiting: Present (Tabitha Rothman RN) RUQ Epigastric Pain: Denies (Tabitha Rothman RN)
[2016-02-28 20:06] LABS: APPEARANCE,URINE SLIGHTLY-CLOUDY; BILIRUBIN,URINE NEGATIVE (NEGATIVE); GLUCOSE, URINE NEGATIVE (NEGATIVE); KETONES,URINE TRACE mg/dL (NEGATIVE); LEUKOCYTE ESTERASE,URINE LARGE (NEGATIVE); NITRITE,URINE NEGATIVE (NEGATIVE); PROTEIN,URINE NEGATIVE (NEGATIVE); URINE SPECIFIC GRAVITY 1.009; UROBILINOGEN,URINE NEGATIVE mg/dL (<2.0)
[2016-02-28 20:28] LABS: URINE BARBITURATES SCREEN NEGATIVE; URINE METHADONE SCREEN NEGATIVE; URINE PHENCYCLIDINE SCREEN NEGATIVE
[2016-02-28] MEDS ORDERED: HYDROXYZINE PAMOATE 50 MG CAPSULE PO ONE (20:45)
[2016-02-28] MEDS ORDERED: ONDANSETRON 4 MG TAB.RAPDIS PO ONE (20:45)
[2016-02-28] MEDS ORDERED: ONDANSETRON 4 MG TAB.RAPDIS ONE (20:48)
[2016-02-28] MEDS ORDERED: HYDROXYZINE PAMOATE 50 MG CAPSULE ONE (21:30)
--- NOTE | 2016-02-29 04:46 | L&D Flow Sheet ---
LD Flowsheet Datetime Report Generated by CPN: 02/29/2016 04:45 Datetime: 02/28/2016 21:47 Stage of : OB Triage (Crystal River, RN) Communication Comments: Pt left unit ambulatory, pt care relinquished. (Crystal River, RN) Datetime: 02/28/2016 21:40 Stage of : OB Triage (Crystal River, RN) Analgesics/Sedatives: Vistaril 50 mg po (Crystal River, RN) Datetime: 02/28/2016 21:28 Stage of : OB Triage (Tabitha Luque RN) Provider Reviewed Strip: No (Tabitha Luque RN) Strip Reviewed by: Katrin Luque RN (Tabitha Luque RN) Communication: RN at Bedside; RN Reviewed Strip (Tabitha Luque RN) Provider Notified (Name): Bayron (Tabitha Luque RN) Notification Reason: Status Update; Status; Labor Status; Membrane Status; Uterine Activity; Pain; Maternal Vital Sign Change; Bleeding (Tabitha Luque RN) Communication Comments: No change in VE, Pt DC with term labor and NST education in Libyan Educated pt on labor signs and reasons to return if signs and symtoms worsen, educated pt on normal bloody show and when to return. Pt verbalized understanding. (Tabitha Luque RN) Datetime: 02/28/2016 21:24 Dilatation (cm): 3.0 (Tabitha Luque RN) Effacement (%): 50 (Tabitha Luque RN) Station: -2 (Tabitha Luque, RN) Exam by: Katrin luque RN (Tabitha River, RN) Vaginal Bleeding: Normal Show (Tabitha River, RN) Cervix, Consistency: Moderate (Crystal Stephan, RN) Cervix, Position: Posterior (Crystal River, RN) Datetime: 02/28/2016 21:22 I/O Interventions: Up to BR (Crystal Stephan, RN) Datetime: 02/28/2016 21:20 Monitor Mode: External (Crystal Stephan, RN) Frequency (min): 1-5 (Crystal Stephan, RN) Quality: Mild/Moderate (Crystal River, RN) Duration (sec): 60-90 (Crystal Stehpan, RN) Resting Tone (Palpate): Relaxed (Crystal Stephan, RN) Monitor Mode: External US (Crystal Stephan, RN) FHR Baseline Rate : 120 (Crystal Stephan, RN) Variability: Moderate 6-25 bpm (Crystal Stephan, RN) Accelerations: 15X15 (Crystal Stephan, RN) Decelerations: None (Crystal Stephan, RN) Datetime: 02/28/2016 21:09 NBP Sys/Arlin/Mean (mmHg): 136 (QS system process) : 84 (QS system process) : 105 (QS system process) Pulse: 61 (QS system process) LaborFlag: OB Triage (QS system process) Datetime: 02/28/2016 20:49 Antiemetics/Antacids: Zofran PO (mg) @ 4 mg (Crystal Stephan, RN) Datetime: 02/28/2016 20:41 Stage of : OB Triage (Tabitha Luque RN) Strip Reviewed by: Katrin Luque RN (Tabitha Luque RN) Communication: Provider Orders Received (Tabitha Luque RN) Provider Notified (Name): Verma (Tabitha Luque RN) Notification Reason: Status Update (Tabitha Luque RN) Communication Comments: Received orders for 4mg zofran PO for N/V. If no change on cervical exam pt may be DC with 50 mg vistaril PO. (Tabitha Luque RN) Datetime: 02/28/2016 20:34 Frequency (min): 1-5 (Tabitha Luque RN) Duration (sec): 60-90 (Tabitha Luque RN) Patient Position/Activity: Left Lateral; Semi-Fowlers (Tabitha Luque RN) I/O Interventions: Clear Liquids Given (Tabitha Luque RN) Datetime: 02/28/2016 20:33 Monitor Mode: External; Palpation (Crystal River, RN) Quality: Mild/Moderate (Crystal River, RN) Duration Criteria: Less than Two 120 Second Contractions (Crystal River, RN) Resting Tone (Palpate): Relaxed (Crystal Stephan, RN) Monitor Mode: External US (Crystal River, RN) FHR Baseline Rate : 120 (Crystal River, RN) Variability: Moderate 6-25 bpm (Crystal River, RN) Accelerations: 15X15 (Crystal River, RN) Decelerations: None (Crystal River, RN) Datetime: 02/28/2016 20:19 Stage of : OB Triage (Tabitha Luque RN) Strip Reviewed by: Katrin Luque RN (Tabitha Luque RN) Communication: RN at Bedside; RN Reviewed Strip (Tabitha Luque RN) Notification Reason: Status Update; Status; Labor Status; Membrane Status; Uterine Activity; Pain; Maternal Vital Sign Change; Lab/Diagnostic Study (Tabitha Luque RN) Communication Comments: urrently obtaining assessment information via Martti interpretor (Tabitha Luque RN) Datetime: 02/28/2016 20:04 Temperature (F): 98.1 (Crystal Stephan, RN) Temperature (C): 36.7 (QS system process) LaborFlag: Antepartum (QS system process) Datetime: 02/28/2016 19:53 Monitor Mode: External; Palpation (Crystal River, RN) Frequency (min): 1-3 (Crystal Stephan, RN) Quality: Mild/Moderate (Crystal River, RN) Duration (sec): 50-100 (Crystal Stephan, RN) Resting Tone (Palpate): Relaxed (Crystal Stephan, RN) Monitor Mode: External US (Crystal River, RN) FHR Baseline Rate : 120 (Crystal River, RN) Variability: Moderate 6-25 bpm (Crystal Stephan, RN) Accelerations: 15X15 (Crystal Stephan, RN) Decelerations: None (Crystal Stephan, RN) Patient Position/Activity: Right Lateral; Semi-Fowlers (Crystal Stephan, RN) Datetime: 02/28/2016 19:45 Dilatation (cm): 3.0 (Crystal Stephan, RN) Effacement (%): 50 (Crystal Stephan, RN) Station: -2 (Crystal Stephan, RN) Exam by: Katrin Luque RN (Crystal River, RN) Datetime: 02/28/2016 19:40 NBP Sys/Arlin/Mean (mmHg): 117 (QS system process) : 80 (QS system process) : 95 (QS system process) Pulse: 85 (QS system process) LaborFlag: Antepartum (QS system process) Datetime: 02/28/2016 19:27 Frequency (min): 5-10 minutes (Crystal River, RN) Pain Scale: 4 (Crystal River, RN) Pain Presence: Intermittent (Crystal Stephan, RN) Pain Type: Contraction (Crystal Stephan, RN) Pain Location: Abdomen (Crystal Stephan, RN) Pain Goal: 2 (Tabitha Luque RN) Pain Relief Measures: Comfort Measures (Tabitha Luque RN) Pain Coping: Talking Through Contractions (Tabitha Luque RN) Vaginal Bleeding: None (Tabitha Luque RN) Level of Consciousness: Fully Conscious (Tabitha Luque RN) DTR's/Clonus: DTRs 1+; No Clonus (Tabitha Luque RN) Headache: Denies (Tabitha Luque RN) Breath Sounds, Left: Clear and Equal (Tabitha Luque RN) Breath Sounds, Right: Clear and Equal (Tabitha Luque RN) Nausea/Vomiting: Present (Tabitha Luque RN) RUQ Epigastric Pain: Denies (Tabitha Luque RN) Instructional Method: Verbal; Patient Instructed; Family/Support Person Instructed; Via Alumni Relations Coordinator; Verbalized Understanding (Tabitha Luque RN) Plan of Care: Plan of Care Discussed (Tabitha Luque RN) Unit Routine: Hawley to Room; Call Benson; Bed; Visiting Policy; Waiting Areas; Phone/Cell Phone Use (Tabitha Luque RN) LaborFlag: Antepartum (QS system process)
--- NOTE | 2016-02-29 04:47 | L&D Admission Assessment ---
LD ADM ASMT Datetime Report Generated by CPN: 02/29/2016 04:45 Assessment Type: Triage (02/28/2016 19:27:Tabitha Rothman RN) Weight (lb): 169 (02/28/2016 20:09:QS system process) Weight (kg): 76.8 (02/28/2016 20:09:QS system process) BMI: 30.9 (02/28/2016 20:09:QS system process) Pain Scale: 4 (02/28/2016 19:27:Crystal Stephan, RN) Pain Presence: Intermittent (02/28/2016 19:27:Crystal Stephan RN) Pain Type: Contraction (02/28/2016 19:27:Crystal [place], RN) Pain Location: Abdomen (02/28/2016 19:27:Crystal Stephan, RN) Pain Goal: 2 (02/28/2016 19:27:Crystal [place] RN) Pain Related to Contraction: Yes (02/28/2016 19:27:Crystal Stephan RN) Frequency (min): 1-5 (02/28/2016 21:20:Crystal [place], RN) Frequency (min): 1-5 (02/28/2016 20:34:Crystal Stephan, RN) Frequency (min): 1-3 (02/28/2016 19:53:Crystal [place], RN) Frequency (min): 5-10 minutes (02/28/2016 19:27:Crystal Stephan, RN) Duration (sec): 60-90 (02/28/2016 21:20:Crystal Stephan, RN) Duration (sec): 60-90 (02/28/2016 20:34:Crystal [place], RN) Duration (sec): 50-100 (02/28/2016 19:53:Crystal [place], RN) Quality: Mild/Moderate (02/28/2016 21:20:Crystal [place], RN) Quality: Mild/Moderate (02/28/2016 20:33:Crystal Stephan, RN) Quality: Mild/Moderate (02/28/2016 19:53:Crystal [place], RN) Resting Tone [place]: Relaxed (02/28/2016 21:20:Crystal [place], RN) Resting Tone [place]: Relaxed (02/28/2016 20:33:Crystal Stephan, RN) Resting Tone [place]: Relaxed (02/28/2016 19:53:Crystal [place], RN) Dilatation (cm): 3.0 (02/28/2016 21:24:Crystal [place], RN) Dilatation (cm): 3.0 (02/28/2016 19:45:Crystal [place], RN) Effacement (%): 50 (02/28/2016 21:24:Crystal Stephan, RN) Effacement (%): 50 (02/28/2016 19:45:Crystal Stephan, RN) Station: -2 (02/28/2016 21:24:Crystal Stephan, RN) Station: -2 (02/28/2016 19:45:Crystal [place], RN) Level of Consciousness: Fully Conscious (02/28/2016 19:27:Crystal Stephan RN) DTR's/Clonus: DTRs 1+; No Clonus (02/28/2016 19:27:Crystal Stephan, RN) Headache: Denies (02/28/2016 19:27:Crystal Stephan, RN) Dizziness: Yes (02/28/2016 19:27:Crystal Stephan RN) Blurred Vision: No (02/28/2016 19:27:Crystal Stephan, RN) Extremity Numbness/Tingling : None (02/28/2016 19:27:Crystal Stephan, RN) Extremity Movement: Full Range of Motion (02/28/2016 19:27:Tabitha Rothman RN) Heart Rhythm: Regular (02/28/2016 19:27:Tabitha Rothman RN) Nailbeds: [place] (02/28/2016 19:27:Tabitha Rothman RN) Capillary Refill: Less than 3 Seconds (02/28/2016 19:27:Tabitha Rothman RN) Lower Extremities Edema Degree: None (02/28/2016 19:27:Tabitha Rothman RN) Upper Extremities Edema: None (02/28/2016 19:27:Tabitha Rothman RN) Upper Extremities Edema Degree: None (02/28/2016 19:27:Tabitha Rothman RN) Facial Edema: None (02/28/2016 19:27:Tabitha Rothman RN) Ara's Sign Left Leg: Negative (02/28/2016 19:27:Tabitha Rothman RN) Ara's Sign Right Leg: Negative (02/28/2016 19:27:Tabitha Rothman RN) DVT Risk Age: Age less than 41 years (02/28/2016 19:27:Tabitha Rothman RN) DVT Risk BMI: BMI<31 (02/28/2016 19:27:Tabitha Rothman RN) DVT Risk Surgery: None Applicable (02/28/2016 19:27:Tabitha Rothman RN) Respiratory Effort: Unlabored; Regular Rhythm; Equal Expansion (02/28/2016 19:27:Tabitha Rothman RN) Breath Sounds, Left: Clear and Equal (02/28/2016 19:27:Tabitha Rothman RN) Breath Sounds, Right: Clear and Equal (02/28/2016 19:27:Tabitha Rothman RN) Cough Productivity: None (02/28/2016 19:27:Tabitha Rothman RN) Nausea/Vomiting: Present (02/28/2016 19:27:Tabitha Rothman RN) Bowel Sounds: Normoactive (02/28/2016 19:27:Tabitha Rothman RN) RUQ Epigastric Pain: Denies (02/28/2016 19:27:Tabitha Rothman RN) Bowel Patterns: Soft, Formed Stool (02/28/2016 19:27:Tabitha Rothman RN) Hemorrhoids: None (02/28/2016 19:27:Tabitha Rothman RN) Diet Type: Regular diet (02/28/2016 19:27:Tabitha Rothman RN) Last Meal: 02/28/2016 14:00 (02/28/2016 19:27:Tabitha Rothman RN) Bladder: Nondistended (02/28/2016 19:27:Tabitha Rothman RN) Frequency of Urination: No (02/28/2016 19:27:Tabitha Rothman RN) Urination Burning: No (02/28/2016 19:27:Tabitha Rothman RN) CVA Tenderness: No (02/28/2016 19:27:Tabitha Rothman RN) Skin Color: Normal for Race (02/28/2016 19:27:Tabitha Rothman RN) Skin Temperature: Warm (02/28/2016 19:27:Tabitha Rothman RN) Skin Moisture: Dry (02/28/2016 19:27:Tabitha Rothman RN) Dickson Scale Sensory Perception: No Impairment- Responds to verbal commands. Has no sensory deficit which would limit ability to feel or voice pain or discomfort (02/28/2016 19:27:Tabitha Rothman RN) Dickson Scale Moisture: Rarely Moist- Skin is usually dry. Linen only requires changing at routine intervals (02/28/2016 19:27:Tabitha Rothman RN) Dickson Scale Activity: Walks Frequently- Walks outside the room at least twice a day and inside room at least every 2 hours during the day. (02/28/2016 19:27:Tabitha Rothman RN) Dickson Scale Mobility: No Limitations- Makes major and frequent changes in position without assistance (02/28/2016 19:27:Tabitha Rothman RN) Dickson Scale Nutrition: Excellent- Eats most of every meal. Never refuses a meal. Usually eats a total of 4 or more servings of meat and dairy products. Occasionally eats between meals. Does not require supplementation (02/28/2016 19:27:Tabitha Rothman RN) Dickson Scale Friction and Shear: No Apparent Problem- Moves in bed and in chair independently and has sufficient muscle strength to lift up completely during move. Maintains good position in bed or chair at all times (02/28/2016 19:27:Tabitha Rothman RN) Dickson Scale Total: 23 (02/28/2016 19:27:QS system process) Dickson Scale Risk: No Risk of Pressure Ulcer Noted at this Time (02/28/2016 19:27:QS system process) FHR Baseline Rate (bpm) Baby A: 120 (02/28/2016 21:20:Tabitha Rothman RN) FHR Baseline Rate (bpm) Baby A: 120 (02/28/2016 20:33:Tabitha Rothman RN) FHR Baseline Rate (bpm) Baby A: 120 (02/28/2016 19:53:Tabitha Rothman RN) Variability Baby A: Moderate 6-25 bpm (02/28/2016 21:20:Tabitha Rothman RN) Variability Baby A: Moderate 6-25 bpm (02/28/2016 20:33:Tabitha Rothman RN) Variability Baby A: Moderate 6-25 bpm (02/28/2016 19:53:Tabitha Rothman RN) Accelerations Baby A: 15X15 (02/28/2016 21:20:Tabitha Rothman RN) Accelerations Baby A: 15X15 (02/28/2016 20:33:Tabitha Rothman RN) Accelerations Baby A: 15X15 (02/28/2016 19:53:Tabitha Rothman RN) Decelerations Baby A: None (02/28/2016 21:20:Tabitha Rothman RN) Decelerations Baby A: None (02/28/2016 20:33:Tabitha Rothman RN) Decelerations Baby A: None (02/28/2016 19:53:Tabitha Rothman RN)
--- NOTE | 2016-02-29 04:47 | Antepartum Discharge Summary ---
Antepartum DC Datetime Report Generated by CPN: 02/29/2016 04:45 Diet: Regular (02/28/2016 21:37:Tabitha Rothman RN) Activity: Normal Activity (02/28/2016 21:37:Tabitha Rothman RN) Instructions Given To: Pt and family (02/28/2016 21:37:Tabitha Rothman RN) Instructions Understood: Patient Verbalized Understanding; Support Person Verbalized Understanding (02/28/2016 21:37:Tabitha Rothman RN) Referrals: None (02/28/2016 21:37:Tabitha Rothman RN) Discharged AMA: No (02/28/2016 21:37:Tabitha Rothman RN) Discharge Date/Time: 02/28/2016 21:38 (02/28/2016 21:37:Tabitha Rothman RN) Discharged To: Home (02/28/2016 21:37:Tabitha Rothman RN) Discharge Provider Name: Verma (02/28/2016 21:37:Tabitha Rothman RN) Accompanied By: Family (02/28/2016 21:37:Tabitha Rothman RN) Discharge Method: Ambulatory (02/28/2016 21:37:Tabitha Rothman RN) Condition: Stable (02/28/2016 21:37:Tabitha Rothman RN) Follow Up With: Health Department (02/28/2016 21:37:Tabitha Rothman RN) Follow Up On: As Scheduled (02/28/2016 21:37:Tabitha Rothman RN) Follow Up Phone Number: Health Department - (02/28/2016 21:37:Tabitha Rothman RN)
--- NOTE | 2016-02-29 04:47 | L&D Current Admission ---
Current Admit Datetime Report Generated by [facility]: 02/29/2016 04:45 Chief Complaint: Contractions (02/28/2016 19:27:Tabitha Rothman RN) Chief Complaint: Contractions (02/23/2016 10:13:Winifred Andrade RN)
--- NOTE | 2016-02-29 04:47 | L&D General Admission ---
General Admit Datetime Report Generated by N: 02/29/2016 04:45 Para: 1 (02/28/2016 21:37:Tabitha Rothman RN) Para: 1 (02/23/2016 10:59:Winifred Andrade RN) Baby, Number in Womb: 1 (02/28/2016 21:37:Tabitha Rothman RN) Baby, Number in Womb: 1 (02/23/2016 10:59:Winifred Andrade RN) Height (in): 61 (02/28/2016 20:09:QS system process) Height (in): 62 (02/23/2016 10:18:QS system process) Medication Allergies: No Known Allergies (02/23/2016) (02/23/2016 10:18:QS system process)
--- NOTE | 2016-02-29 04:47 | L&D Discharge Summary ---
OB Discharge Summary Datetime Report Generated by CPN: 02/29/2016 04:45 DISCHARGE DIAGNOSIS Diagnosis/Symptoms: False Labor Diagnoses/Symptoms Other: No change in VE, Pt DC with term labor and NST education in [place]ian. Educated pt on labor signs and reasons to return if signs and symtoms worsen, educated pt on normal bloody show and when to return. Pt verbalized understanding. Gestation: 39.2 Number of Babies in Womb: 1 Parity: 1 DIET/ACTIVITY/RESTRICTIONS Diet: Regular Activity: Normal Activity TEACHING/INSTRUCTIONS/REFERRALS Unable to Give Instructions: patient was provided written instructions in japanese Instructions Given To: Pt and family Instructions Understood: Patient Verbalized Understanding; Support Person Verbalized Understanding Referrals: None Educational Materials- Other: Kick Counts Early Labor Signs DISCHARGE INFORMATION Discharged AMA: No Discharge Date/Time: 02/28/2016 21:38 Discharged To: Home Discharge Provider Name: Verma Accompanied By: Family Discharge Method: Ambulatory Condition: Stable FOLLOW UP INFORMATION Follow Up With: Health Department Follow Up On: As Scheduled Follow Up Phone Number: Health Department - Comments: Provider aware of pain stated 4/5 GENERAL INSTR-CALL PROVIDER IF: Contractions: Contractions or cramps become more frequent than 8 in one hour or 4 in 20 minutes; Regular painful contractions every 5 minutes or less for one hour. Time your contractions from the beginning of one to the beginning of the next Pressure: Pressure in your vagina or lower abdomen that may feel like the baby is pushing down Period Like Cramps: Period-like cramps or low dull backache that may come and go Cramps/Diarrhea: Abdominal cramps that may be accompanied by diarrhea Gush of Fluid/Blood: Gush of fluid or blood from your vagina (it is normal to have spotting after vaginal exam or intercourse) Vaginal Discharge: Change in the type or amount of vaginal discharge Decreased Movement: Your baby is not moving as much as usual- 4 movements in 1 hour after drinking and resting on side Temperature: Temperature greater than 100.0(F) orally
--- NOTE | 2016-03-04 09:27 | Non Stress Test Report ---
Non Stress Test Datetime Report Generated by CPN: 03/04/2016 09:27 DEMOGRAPHIC Test Number: 1 EGA NST: 39.2 INDICATION Indication for Study: Ordered by Provider VITAL SIGNS Temperature - NST: 98.1 Pulse - NST: 61 RESP - NST: 18 NBPSYS NST: 136 NBPDIA NST: 84 MONITORING Monitor Explained: Monitor Explained; Test Explained; Patient Verbalized Understanding Time on Monitor: 02/28/2016 19:39 Time off Monitor: 02/28/2016 21:28 NST Duration: 109 NST INTERVENTIONS NST Interventions: PO Hydration Physician Notified NST: Verma BABY A Movement : Present Contraction Frequency : 1-6 FHR Baseline : 120 Accelerations : 15X15 Decelerations : None Variability : Moderate 6-25bpm NST Review: Meets Criteria for Reactive NST NST Review and Verified By : ZAK Gee NST Results: Reactive NST REPORT Report Trigger: Send Report
== END 2016-02-28 21:49 | disposition home or self-care (01) ==
LOC: LC 19:17
PROVIDERS: ATTEND Obstetrics & Gynecology
PROC: 4A1HXCZ Monitoring of Products of Conception, Cardiac Rate, External Approach (ICD-10-PCS; principal; 2016-02-28)
DX: Z34.93 Encounter for supervision of normal pregnancy, unspecified, third trimester (principal); Z3A.39 39 weeks gestation of pregnancy
CPT/HCPCS: 59025; 81005; 80307; S0119

== ENCOUNTER 2016-03-04 09:29 | Inpatient (IN) | payer SELFPAY ==
[2016-03-04] MEDS ORDERED: RINGERS SOLUTION,LACTATED 1,000 ML IV PRN (10:01)
[2016-03-04] MEDS ORDERED: RINGERS SOLUTION,LACTATED 1,000 ML IV ONE (10:01)
[2016-03-04 10:17] LABS: APPEARANCE,URINE CLOUDY; BILIRUBIN,URINE NEGATIVE (NEGATIVE); GLUCOSE, URINE NEGATIVE (NEGATIVE); KETONES,URINE NEGATIVE (NEGATIVE); LEUKOCYTE ESTERASE,URINE SMALL (NEGATIVE); NITRITE,URINE NEGATIVE (NEGATIVE); PROTEIN,URINE 100 mg/dL (NEGATIVE); URINE SPECIFIC GRAVITY 1.011; UROBILINOGEN,URINE NEGATIVE mg/dL (<2.0)
[2016-03-04] MEDS ORDERED: LIDOCAINE 1% INJ-PF (10 MG/ML) 30 ML SDV ONE (10:24)
[2016-03-04] MEDS ORDERED: MISOPROSTOL 0.2 MG TABLET ONE (10:24)
[2016-03-04] MEDS ORDERED: OXYTOCIN/NORMAL SALINE 20 UNIT/1,000 ML RTUINJ ONE (10:24)
[2016-03-04 10:27] LABS: AMNISURE (ROM) POSITIVE (NEGATIVE)
[2016-03-04 10:35] LABS: URINE BARBITURATES SCREEN NEGATIVE; URINE PHENCYCLIDINE SCREEN NEGATIVE
[2016-03-04 10:45] LABS: URINE METHADONE SCREEN NEGATIVE
--- NOTE | 2016-03-04 11:11 | L&D Progress Notes ---
PROGRESS NOTES Datetime Report Generated by CPN: 03/04/2016 11:11 PROGRESS NOTE Plan: Continue Present Management Informed Consent Obtained: Vaginal Delivery Vital Signs : Reviewed; Within Normal Limits Comment: Ve =8-9, 80/vtx.0, urge to push, after 15 min, out of stirrups and placed in knee chest FETUS A FHR - Baseline: 130 Variability: Moderate 6-25bpm Decelerations: None SIGNATURE SIGNATURE: [id number] SIGNATURE: [id number] SIGNATURE: [id number] SIGNATURE: [id number] SIGNATURE: [id number] Assignment: Michael Rahman DO Signature: with User ID: Charu : with User ID: [email or web address]
--- NOTE | 2016-03-04 12:00 | L&D Flow Sheet ---
LD Flowsheet Datetime Report Generated by CPN: 03/04/2016 12:00 Datetime: 03/04/2016 11:56 Communication Comments: Called nursery for delivery (Mariah Marlatt, RN) Datetime: 03/04/2016 11:55 Communication: Provider at Bedside (Mariah Nimishalatt, RN) Communication Comments: Dr. Rahman at bedside (Mariah Marlatt, RN) Datetime: 03/04/2016 11:52 Patient Position/Activity: Right Lateral; Low Fowlers (Arlen Otero, RN) Datetime: 03/04/2016 11:51 Actions for Decelerations: Oxygen Applied (Arlen Otero RN) Comments: OP (Arlen Otero, MADELINE) Oxygen Amount : 10 (Arlen Otero, MADELINE) Pushing: Coached on Pushing; Urge to Push (Arlen Otero RN) Pushing Position: Pushing with Contractions; Pushing Lithotomy (Arlen Otero RN) Pushing Progress: Pushing Effectively with Contractions (Arlen Otero, MADELINE) Stage 2 Comments: Pull technique (Arlen Otero, MADELINE) Communication: RN at Bedside; Provider at Bedside (Arlen Otero RN) Datetime: 03/04/2016 11:35 Dilatation (cm): 10.0 (Arlen Orlando, RN) Effacement (%): 100 (Arlen Orlando, RN) Station: 0 (Arlen Orlando, RN) Exam by: Michelle Rodríguez CNM (Arlen Orlando, RN) Vaginal Bleeding: Normal Show (Arlen Branden, RN) Cervix, Consistency: Soft (Arlen Branden, RN) Cervix, Position: Midposition (Arlen Branden, RN) Vaginal Exam Comments: OP (Arlen Orlando, RN) Datetime: 03/04/2016 11:33 Pushing: Coached on Pushing; Urge to Push (Arlen Branden, RN) Pushing Position: Pushing with Contractions; Pushing Lithotomy (Arlen Orlando, RN) Pushing Progress: Descent with Pushing; Pushing Effectively with Contractions (Arlen Branden, RN) Datetime: 03/04/2016 11:30 Monitor Mode: External; Palpation (Arlen Branden, RN) Monitor Mode: External (Mariah Marlatt, RN) Frequency (min): 1-2.5 (Arlen Orlando, RN) Frequency (min): 1.5-2.5 (Mariah Marlatt, RN) Quality: Moderate to Strong (Arlen Branden, RN) Quality: Moderate to Strong (Mariah Marlatt, RN) Duration (sec): 60-90 (Arlen Branden, RN) Duration (sec): 60-90 (Mariah Marlatt, RN) Duration Criteria: Less than Two 120 Second Contractions (Arlen Orlando, RN) Pattern: Normal: <= 5 Contractions in 10 Minutes (Arlen Branden, RN) Resting Tone (Palpate): Relaxed (Arlen Branden, RN) Resting Tone (Palpate): Relaxed (Mariah Marlatt, RN) Monitor Mode: External US; Internal Scalp Electrode (Arlen Orlando, RN) Monitor Mode: External US; Internal Scalp Electrode (Mariah Marlatt, RN) FHR Baseline Rate : 125 (Arlen Branden, RN) FHR Baseline Rate : 125 (Mariah Marlatt, RN) FHR Baseline Changes: No Baseline Change (Arlen Orlando, RN) Variability: Moderate 6-25 bpm (Arlen Orlando, RN) Variability: Moderate 6-25 bpm (Mariah Marlatt, RN) Accelerations: 15X15 (Arlen Branden, RN) Accelerations: 10X10 (Mariah Marlatt, RN) Decelerations: Early (Arlen Branden, RN) Decelerations: Variable (Mariah Marlatt, RN) Datetime: 03/04/2016 11:28 Monitor Interventions for FHR: FSE Applied (Arlen Orlando, RN) Datetime: 03/04/2016 11:22 Pushing: Coached on Pushing; Urge to Push (Arlen Orlando, RN) Pushing Position: Pushing with Contractions (Arlen Orlando, RN) Pushing Progress: Descent with Pushing; Pushing Effectively with Contractions (Arlen Branden, RN) Datetime: 03/04/2016 11:19 Communication: RN at Bedside; Provider at Bedside (Arlen Orlando, RN) Datetime: 03/04/2016 11:15 Monitor Mode: External (Mariah Marlatt, RN) Quality: Moderate to Strong (Mariah Marlatt, RN) Resting Tone (Palpate): Relaxed (Mariah Marlatt, RN) Contraction Comments: difficult to determine frequency and duration due to patient positoning (Mariah Marlatt, RN) Monitor Mode: External US (Mariah Marlatt, RN) FHR Baseline Rate : 120 (Mariah Marlatt, RN) Variability: Moderate 6-25 bpm (Mariah Marlatt, RN) Accelerations: 15X15 (Mariah Marlatt, RN) Datetime: 03/04/2016 11:05 Patient Position/Activity: Hands-Knees (Arlen Orlando, RN) Communication: RN at Bedside (Arlen Orlando, RN) Datetime: 03/04/2016 11:00 Monitor Mode: External (Mariah Marlatt, RN) Frequency (min): 1.5-4 (Mariah Olivares RN) Quality: Moderate to Strong (Mariah Olivares RN) Duration (sec): 70-110 (Mariah Olivares RN) Resting Tone (Palpate): Relaxed (Mariah Olivares RN) Monitor Mode: External US (Mariah Olivares RN) FHR Baseline Rate : 120 (Mariah Olivares RN) Variability: Moderate 6-25 bpm (Mariah Olivares RN) Accelerations: 15X15 (Mariah Olivares RN) Datetime: 03/04/2016 10:58 NBP Sys/Arlin/Mean (mmHg): 144 (QS system process) : 86 (QS system process) : 110 (QS system process) Pulse: 64 (QS system process) Dilatation (cm): 9.0 (Arlen Otero RN) Effacement (%): 90 (Arlen Otero, MADELINE) Station: 1 (Arlen Otero, RN) Exam by: Michelle Rodríguez CNM (Arlen Otero, RN) Vaginal Bleeding: Normal Show (Arlen Otero, RN) Cervix, Consistency: Soft (Arlen Otero, RN) Cervix, Position: Midposition (Arlen Otero, RN) IV/Blood Work: IV Infusing per Order (Arlen Otero, MADELINE) Communication: RN at Bedside; Provider at Bedside (Arlen Otero, MADELINE) LaborFlag: Labor (QS system process) Datetime: 03/04/2016 10:49 Comments: RN at bedside continuoulsy assessing FHT while patiet pushes with contractions (Arlen Otero, MADELINE) Provider Reviewed Strip: Yes (Arlen Otero, RN) Preparation for Delivery: Setup for Delivery (Arlen Otero, RN) Communication: RN at Bedside; RN Reviewed Strip; Provider at Bedside (Alren Otero, MADELINE) Provider Notified (Name): Michelle Rodríguez CNM (Arlen Otero, RN) Notification Reason: Status Update; Status; Labor Status; Membrane Status; Uterine Activity; Pain; Lab/Diagnostic Study (Arlen Otero RN) Datetime: 03/04/2016 10:45 Monitor Mode: External; Palpation (Arlen Otero RN) Frequency (min): 1-5 (Arlen Otero, MADELINE) Quality: Moderate to Strong (Arlen Otero RN) Duration (sec): 60-90 (Arlen Otero RN) Duration Criteria: Less than Two 120 Second Contractions (Arlen Otero RN) Pattern: Normal: <= 5 Contractions in 10 Minutes (Arlen Otero RN) Resting Tone (Palpate): Relaxed (Arlen Otero RN) Monitor Mode: External US (Arlen Otero RN) FHR Baseline Rate : 120 (Arlen Otero RN) FHR Baseline Changes: No Baseline Change (Arlen Otero RN) Variability: Moderate 6-25 bpm (Arlen Otero RN) Accelerations: 15X15 (Arlen Otero RN) Decelerations: Early; Variable (Arlen Otero RN) Provider Reviewed Strip: Yes (Arlen Otero RN) Communication: RN at Bedside; RN Reviewed Strip; Provider at Bedside (Arlen Otero RN) Datetime: 03/04/2016 10:33 Dilatation (cm): 6.0 (Arlen Otero, RN) Effacement (%): 80 (Arlen Otero, RN) Station: 0 (Arlen Otero, RN) Exam by: Amy Otero RN (Arlen Otero, RN) Vaginal Bleeding: Normal Show (Arlen Otero, RN) Cervix, Consistency: Soft (Arlen Otero, RN) Cervix, Position: Midposition (Arlen Otero, RN) Communication: Call/Page Placed to Provider (Arlen Otero RN) Provider Notified (Name): Michelle Rodríguez CNM notifying of patient cervical change in dilation. (Arlen Otero, MADELINE) Datetime: 03/04/2016 10:30 Monitor Mode: External; Palpation (Arlen Otero, MADELINE) Frequency (min): 3-5 (Arlen Otero RN) Quality: Moderate to Strong (Arlen Otero, MADELINE) Duration (sec): 60-90 (Arlen Otero, MADELINE) Duration Criteria: Less than Two 120 Second Contractions (Arlen Otero, MADELINE) Pattern: Normal: <= 5 Contractions in 10 Minutes (Arlen Otero, MADELINE) Resting Tone (Palpate): Relaxed (Arlen Otero, MADELINE) Monitor Mode: External US (Arlen Otero, MADELINE) FHR Baseline Rate : 125 (Arlen Otero RN) FHR Baseline Changes: No Baseline Change (Arlen Otero RN) Variability: Moderate 6-25 bpm (Arlen Otero, MADELINE) Accelerations: 15X15 (Arlen Otero, MADELINE) Decelerations: Early; Variable (Arlen Otero RN) Datetime: 03/04/2016 10:26 Monitor Interventions for UA: [place] Adjusted (Arlen Otero, MADELINE) Monitor Mode: External US (Arlen Otero, MADELINE) Monitor Interventions for FHR: Ultrasound Adjusted (Arlen Otero, MADELINE) Pain Scale: 5 (Arlen Otero RN) Pain Presence: Intermittent (Arlen Otero RN) Pain Type: Contraction (Arlen Otero, MADELINE) Pain Location: Abdomen; Back (Arlen Otero, MADELINE) Pain Goal: 1 (Arlen Otero RN) Pain Relief Measures: Comfort Measures (Arlen Otero RN) Pain Coping: Breathing Through Contractions (Arlen Otero, RN) Vaginal Bleeding: Scant (Arlen Otero, RN) Level of Consciousness: Fully Conscious (Arlen Otero, RN) DTR's/Clonus: DTRs 2+; No Clonus (Arlen Otero, RN) Headache: Denies (Arlen Otero, RN) Breath Sounds, Left: Clear and Equal (Arlen Otero, RN) Breath Sounds, Right: Clear and Equal (Arlen Otero, RN) Nausea/Vomiting: Denies (Arlen Otero, RN) RUQ Epigastric Pain: Denies (Arlen Otero, RN) IV/Blood Work: IV Infusing per Order (Arlen Otero, RN) Oxygen Method: Room Air (Arlen Otero, RN) Comfort Measures: Breathing/Relaxation; Coaching; Family Support (Arlen Otero, RN) I/O Interventions: Clear Liquids Given (Arlen Otero, RN) Instructional Method: Verbal; Patient Instructed; Family/Support Person Instructed (Annotations: patient albanian speaking) (Arlen Otero, MADELINE) Plan of Care: Plan of Care Discussed; Vaginal Delivery (Arlen Otero, RN) Unit Routine: [place] to Room; Call Benson; Bed; Unit Personnel; Handwashing; Flu/Illness Precautions; Monitoring; IV Pumps; Safety/Fall Risk Prevention; Bathroom Privileges (Arlen Otero, RN) Labor/Induction: Labor Stages (Arlen Otero, MADELINE) Pain Management: Pain Scale/Goals; Comfort Measures (Arlen Otero, RN) Related: Common Discomforts of ; Maternal Physical Changes; Maternal Emotional Changes; Nutrition; Hydration; Activity and Rest (Arlen Otero, RN) LaborFlag: Labor (QS system process) Datetime: 03/04/2016 10:25 Stage of : Labor (Arlen Otero, RN) NBP Sys/Arlin/Mean (mmHg): 138 (QS system process) : 79 (QS system process) : 103 (QS system process) Pulse: 67 (QS system process) Respirations: 18 (Arlen Otero, RN) LaborFlag: Labor (QS system process) Datetime: 03/04/2016 10:15 Monitor Mode: External (Arlen Otero, RN) Frequency (min): 3-5 (Arlen Otero, RN) Quality: Moderate to Strong (Arlen Otero, RN) Duration (sec): 70-100 (Arlen Otero, RN) Duration Criteria: Less than Two 120 Second Contractions (Arlen Otero, RN) Pattern: Normal: <= 5 Contractions in 10 Minutes (Arlen Otero, RN) Resting Tone (Palpate): Relaxed (Arlen Otero, RN) Monitor Mode: External US (Arlen Otero, RN) FHR Baseline Rate : 125 (Arlen Otero, RN) FHR Baseline Changes: No Baseline Change (Arlen Otero, RN) Variability: Moderate 6-25 bpm (Arlen Otero, RN) Accelerations: 15X15 (Arlen Friedmanard, RN) Decelerations: Early (Arlen Otero, RN) Datetime: 03/04/2016 10:12 IV/Blood Work: IV Started; IV Bolus Started; New IV Bag Hung; IV Bag Number @ 1 (Arlen Otero, RN) Patient Position/Activity: Left Tilt; Low Fowlers (Arlen Otero, RN) Datetime: 03/04/2016 10:00 Monitor Mode: External; Palpation (Arlen Otero, RN) Frequency (min): 2-4 (Arlen Otero, RN) Quality: Moderate to Strong (Arlen Otero, RN) Duration (sec): 60-90 (Arlen Otero, RN) Duration Criteria: Less than Two 120 Second Contractions (Arlen Otero, RN) Pattern: Normal: <= 5 Contractions in 10 Minutes (Arlen Friedmanard, RN) Resting Tone (Palpate): Relaxed (Arlen Otero, RN) Monitor Mode: External US (Arlen Otero, RN) FHR Baseline Rate : 135 (Arlen Otero, RN) FHR Baseline Changes: No Baseline Change (Arlen Friedmanard, RN) Variability: Moderate 6-25 bpm (Arlen Orlando, RN) Accelerations: 15X15 (Arlen Orlando, RN) Decelerations: Early (Arlen Otero, RN) Comments: reports positive movement (Arlen Otero, RN) Datetime: 03/04/2016 09:56 Dilatation (cm): 5.0 (Arlen Otero RN) Effacement (%): 80 (Arlen Otero RN) Station: -1 (Arlen Otero RN) Exam by: Amy Otero RN (Arlen Otero RN) Vaginal Bleeding: Scant (Arlen Otero RN) Cervix, Consistency: Soft (Arlen Otero RN) Cervix, Position: Midposition (Arlen Otero RN) Datetime: 03/04/2016 09:55 NBP Sys/Arlin/Mean (mmHg): 129 (QS system process) : 84 (QS system process) : 102 (QS system process) Pulse: 72 (QS system process) LaborFlag: OB Triage (QS system process) Datetime: 03/04/2016 09:47 Communication Comments: Martti at bedside attempting to connect to german professor services (Arlen Otero RN)
[2016-03-04] MEDS ORDERED: METHYLERGONOVINE MALEATE INJ/PF 0.2 MG/1 ML AMPULE ONE ×2 (12:09→12:11)
[2016-03-04] MEDS ORDERED: DIPH/PERTUSS(ACELL)/TETANUS VAC/PF 0.5 ML SYR (>=10YO) IM PRN (12:20)
[2016-03-04] MEDS ORDERED: DIBUCAINE 1% OINTMENT 28 GM TP PRN (12:20)
[2016-03-04] MEDS ORDERED: GLYCERIN/WITCH HAZEL LEAF 1 EACH MED..PAD TP PRN (12:20)
[2016-03-04] MEDS ORDERED: PSEUDOEPHEDRINE HCL 30 MG TABLET PO PRN (12:20)
[2016-03-04] MEDS ORDERED: MAGNESIUM HYDROXIDE SUSP 30 ML UDCUP PO PRN (12:20)
[2016-03-04] MEDS ORDERED: PROMETHAZINE HCL INJ 25 MG/1 ML VIAL IV PRN (12:20)
[2016-03-04] MEDS ORDERED: PROMETHAZINE HCL 25 MG TABLET PO PRN (12:20)
[2016-03-04] MEDS ORDERED: OXYTOCIN/NORMAL SALINE 1,000 ML IV PRN (12:20)
[2016-03-04] MEDS ORDERED: NA PHOS,M-B/NA PHOS,DI-BA (ADULT) 133 ML ENEMA PR PRN (12:20)
[2016-03-04] MEDS ORDERED: ACETAMINOPHEN 650 MG SUPP.RECT PR PRN (12:20)
[2016-03-04] MEDS ORDERED: MEASLES,MUMPS&RUBELLA VACC/PF 0.5 ML VIAL SUBCUT PRN (12:20)
[2016-03-04] MEDS ORDERED: DIPHENHYDRAMINE HCL 25 MG CAPSULE PO PRN (12:20)
[2016-03-04] MEDS ORDERED: MISOPROSTOL 0.2 MG TABLET PR ONE (12:20)
[2016-03-04] MEDS ORDERED: BENZOCAINE/MENTHOL AEROSOL SPRAY 56 ML TOP PRN (12:20)
[2016-03-04] MEDS ORDERED: PROMETHAZINE HCL 25 MG SUPP.RECT PR PRN (12:20)
[2016-03-04] MEDS ORDERED: ACETAMINOPHEN WITH CODEINE #3 TABLET PO PRN ×2 (12:20)
[2016-03-04] MEDS ORDERED: METHYLERGONOVINE MALEATE INJ/PF 0.2 MG/1 ML AMPULE IM PRN (12:20)
[2016-03-04 12:31] LABS: ARTERIAL BLOOD BASE EXCESS -2.8 mmol/L; ARTERIAL BLOOD O2 SATURATION 27.9 % (94-98)
[2016-03-04] MEDS ORDERED: IBUPROFEN 800 MG TABLET ONE (13:11)
[2016-03-04] MEDS: IBUPROFEN 800 MG TABLET PO SCH ×2 (13:17→21:15)
[2016-03-04 14:08] LABS: HEMATOCRIT 41.3 % (36.0-47.0); HEMOGLOBIN 12.9 g/dL (12.0-15.5); HGB HCT DIFFERENCE -2.6; MEAN CORPUSCULAR HEMOGLOBIN 27.7 pg (27.0-33.4); MEAN CORPUSCULAR HGB CONC 31.3 g/dL (32.0-36.0); MEAN CORPUSCULAR VOLUME 89 fl (80-97); RED BLOOD COUNT 4.67 10^6/uL (3.72-5.28); RED CELL DISTRIBUTION WIDTH 14.3 % (11.5-14.0); WHITE BLOOD COUNT 17.2 10^3/uL (4.0-10.5)
[2016-03-04 14:25] LABS: BASOPHILS % (MANUAL) 0 % (0-2); EOSINOPHILS % (MANUAL) 0 % (0-6); LYMPHOCYTES % (MANUAL) 6 % (13-45); TOTAL CELLS COUNTED 100
[2016-03-04 14:26] LABS: ANISOCYTOSIS SLIGHT; OVALOCYTES 1+; POIKILOCYTOSIS 1+; TEAR DROP CELLS SLIGHT
--- NOTE | 2016-03-04 15:03 | Delivery Summary ---
Del Sum A-C Datetime Report Generated by CPN: 03/04/2016 15:03 ADMISSION DATA Chief Complaint: Uterine Contractions; Suspected Ruptured Membranes Indication for Induction: Not Applicable Admission Impression: Term, Intrauterine ; Active Labor; Ruptured Membranes Admit Provider Comments: Admitted in active labor, GBS Neg, care at [facility] DELIVERY PERSONNEL Delivery Doctor:: Michael Rahman DO Nurse Supervisor Metal Hanging Certified:: Shira Rodríguez CNM Labor and Delivery Nurse:: Arlen Otero RNexchange operator Nurse:: Racheal Zimmerman RN Nursery Nurse:: Holli Capps RN Manager Floral/WASTE MANAGEMENT ENGINEER: Diamante Nieto CNA II Manager Floral/WASTE MANAGEMENT ENGINEER: Genet Howard CST MATERNAL INFORMATION Delivery Anesthesia: None Medications After Delivery: Pitocin Bolus-Please Comment; Pitocin Drip 20 Units/1000ml NSS; Methergine 0.2mg IM; Cytotec 600mcg Per Rectum/Vagina Estimated Blood Loss (ml): 400 Maternal Complications: None Provider Comments: Pt pushed and was direct OP until it turned to OA and on perineum, OA to LOQ, turtle sign, tight nuchal cord, clamped and cut , pushing, no descent, Gopal, suprapubic pressure with delivery of large infant, right shoulder ws stuck, baby placed on mothers abd, stimulated and crying, [facility], nursery called, suctioned, stimulated, baby moving all extremeties. Cord blood obtained, spont delivery of grossly normal intact placenta, 3 VC, EBL 400cc, cytotec 600mcg via rectum, laceration repaired without difficulty. Continues to have moderate bleeding, uterus soft, Methergine 0.2 mg IM Baby on mom's abd, hsb and daughter at BS [facility] LABOR SUMMARY EDC: 03/04/2016 00:00 No. Babies in Womb: 1 Attempted: No Labor Anesthesia: None LABOR INFORMATION Reason for Induction: Not Applicable Onset of Labor: 03/04/2016 06:00 Complete Dilatation: 03/04/2016 11:35 Other Ripening Agents: n/a Oxytocin: N/A Group B Beta Strep: Negative (Annotations: Data stored by [facility] on behalf of user) Antibiotics # of Doses: n/a Antibiotics Time of Last Dose: n/a Name of Antibiotic Given: n/a Steroids Given: None Reason Steroids Not Administered: Not Applicable Other Reason Not Administered: n/a MEMBRANES Membranes Rupture Method: Spontaneous Rupture of Membranes: 03/04/2016 08:00 Length of Rupture (hr): 3.95 Amniotic Fluid Color: Clear Amniotic Fluid Amount: Scant Amniotic Fluid Odor: Normal STAGES OF LABOR Stage 1 hr: 5 Stage 1 min: 35 Stage 2 hr: 0 Stage 2 min: 22 Stage 3 hr: 0 Stage 3 min: 9 Total Time in Labor hr: 6 Total Time in Labor min: 6 VAGINAL DELIVERY Episiotomy: None Laceration Extension: First Degree Laceration Type: Periurethral Laceration Repair: Yes Laceration Repair Note: Left labia repaired with 2-0 chromic using 1% Xylocaine Sponge Count Correct: N/A Sharps Count Correct: N/A CSECTION DELIVERY Primary Indication: N/A Secondary Indication: N/A CSection Incidence: N/A Elective: N/A CSection Incision: N/A BABY A INFORMATION Infant Delivery Date/Time: 03/04/2016 11:57 Method of Delivery: Vaginal Born in Route : No : N/A Forceps: N/A Vacuum Extraction: N/A Shoulder Dystocia : Yes SHOULDER DYSTOCIA BABY A Delivery of Head: 03/04/2016 11:55 Time Head to Delivery : 2.0 1st Intervention to Resolve: Gentle Attempt at Traction, Assisted by Maternal Expulsive Efforts 2nd Intervention to Resolve: McRobert's Maneuver 3rd Intervention to Resolve: Suprapubic Pressure Verify NO Fundal Pressure: No Fundal Pressure Applied Arm Under Symphisis at Del: Right PRESENTATION/POSITION BABY A Presentation: Cephalic Cephalic Presentation: Vertex Vertex Position: Left Occipital Anterior Breech Presentation: N/A PLACENTA INFORMATION BABY A Placenta Delivery Time : 03/04/2016 12:06 Placenta Method of Delivery: Spontaneous Placenta Status: Delivered SCORES BABY A Heart Rate 1 min: >100 bpm Resp Effort 1 min: Good Cry Reflex Irritability 1 min: Cough or Sneeze or Pulls Away Muscle Tone 1 min: Some Flexion of Extremities Color 1 min: Blue/Pale SCORE 1 MIN: 7 Heart Rate 5 min: >100 bpm Resp Effort 5 min: Good Cry Reflex Irritability 5 min: Cough or Sneeze or Pulls Away Muscle Tone 5 min: Active Motion Color 5 min: Body Salome, Extremities Blue SCORE 5 MIN: 9 INFORMATION BABY A Gestational Age at Delivery: 40.0 Gestational Status: Full Term- 39- 40.6 Weeks Outcome : Liveborn Condition : Stable Infant Sex: Male IDENTIFICATION BABY A Infant Verification Date/Time: 03/04/2016 13:34 ID Band Number: [id number] Infant RN Verifying : Amy Otero RN/Kelton Olivares, RN WEIGHT/LENGTH BABY A Infant Birthweight (gm): 3840 Weight (lb): 8 Infant Weight (oz): 7 Length (in): 20.00 Infant Length (cm): 50.80 CORD INFORMATION BABY A No. Cord Vessels: 3 Nuchal Cord : Around Neck x1, Tight Cord Blood Taken: Yes-For Eval (Mom's Blood Type - or O+) Suction: Mouth; Nose ASSESSMENT BABY A Complications: Multiple Variable Decels; Shoulder Dystocia Physical Findings at Delivery: Caput Succedaneum; Molding of the Head; Bruising Physical Findings- Other: bruised face Respirations: Appears Normal Skin to Skin: Yes Skin to Skin Time (min): 15 Wood Crafter/ALS Called : No Care By: Adriana Zimmerman RN/Holli Anaya RN Transferred To: Remains with Mother BABY B INFORMATION : N/A
--- NOTE | 2016-03-04 15:58 | Admission Physical ---
Datetime Report Generated by CPN: 03/04/2016 15:58 CURRENT ADMISSION Hx Assessment: The History has been Reviewed and is Current Chief Complaint: Uterine Contractions; Suspected Ruptured Membranes Indication for Induction: Not Applicable Admit Plan: Admit to Unit; Initiate Labor Protocol ALLERGIES Medication Allergies: No Medication Allergies: No Known Allergies (03/04/2016) Latex: No Latex Allergies Food Allergies: None Environmental Allergies: None OBSTETRICAL HISTORY EDC: 03/04/2016 00:00 : 2 Para: 1 Term: 1 : 0 SAB: 0 IAB: 0 Ectopic: 0 Livin Cesareans: 0 VBACs: 0 Multiple Births: 0 Gestational Diabetes: No Rh Sensitization: No Incompetent Cervix: No JENNIFFER: No Infertility: No ART Treatment: No Uterine Anomaly: No IUGR: No Hx Previous C/S: No Macrosomia: No Hx Loss/Stillborn: No PIH: No Hx : No Placenta Previa/Abruption: No Depression/PP Depression: No PTL/PROM: No Post Hemorrhage: No Current Procedures: Ultrasound Obstetrical History Comments: 05/2009 - at 38wks, 3.249kg (in [place]) G2 - current SEE RECORDS Alcohol: No Marijuana : No Cocaine: No Other Illicit Drugs: No Cigarettes: Never Smoker. [id number] MEDICAL HISTORY Diabetes: No Blood Transfusion: No Pulmonary Disease (Asthma, TB): No Breast Disease: No Hypertension: No Extrusion Technician Surgery: No Heart Disease: No Hosp/Surgery: Yes Autoimmune Disorder: No Anesthetic Complications: No Kidney Disease: No Abnormal Pap Smear: No Neuro/Epilepsy: No Psychiatric Disorders: No Other Medical Diseases: No Hepatitis/Liver Disease: No Significant Family History: No Varicosities/Phlebitis: No Trauma/Violence : No Thyroid Dysfunction: No Medical History Comments: Hospitalized for first INFECTIOUS HISTORY Gonorrhea: No Genital Herpes: No Chlamydia: No Tuberculosis: No Syphilis: No Hepatitis: No HIV/AIDS Exposure: No Rash or Viral Illness: No HPV: No PHYSICAL EXAM General: Normal HEENT: Normal Neurologic: Normal Thyroid: Normal Heart: Normal Lungs: Normal Breast: Deferred Back: Normal Abdomen: Normal Genitourinary Exam: Normal Extremities: Normal DTRs: Normal Pelvic Type: Adequate Physical Exam Comments: 40 weeks in labor Vital Signs: Reviewed FETUS A EGA: 40.0 Monitoring: External US FHR- Baseline: 140 Variability: Moderate 6-25bpm Accelerations: 15X15 Admit Comment: Admitted in active labor, GBS Neg, care at [facility] PLANS FOR LABOR AND DELIVERY Labor and Delivery: None Pain Management: Natural; Medications Feeding Preference: Both Benefit of Breast Feed Discussed: Yes Circumcision: No INFORMED CONSENT Informed Consent Obtained: Vaginal Delivery Assignment: Michael Rahman DO Signature: with User ID: [email or web address] : with User ID: [email or web address]
--- NOTE | 2016-03-04 16:00 | L&D Flow Sheet ---
LD Flowsheet Datetime Report Generated by CPN: 03/04/2016 16:00 Datetime: 03/04/2016 15:02 Stage of : Recovery (Arlen Branden, RN) Datetime: 03/04/2016 14:15 Stage of : Recovery (Arlen Branden, RN) Datetime: 03/04/2016 14:01 Stage of : Recovery (Arlen Otero, ) NBP Sys/Arlin/Mean (mmHg): 168 (QS system process) : 77 (QS system process) : 110 (QS system process) Pulse: 59 (QS system process) Respirations: 16 (Arlen Otero, ) Datetime: 03/04/2016 14:00 Stage of : Recovery (Arlen Otero, ) Pain Scale: 2 (Arlen Otero, RN) Pain Presence: Intermittent (Arlen Otero, RN) Pain Type: Cramping (Arlen Otero, RN) Pain Location: Abdomen (Arlen Otero, RN) Pain Goal: 1 (Arlen [place], ) Pain Relief Measures: Comfort Measures (Arlen [place], ) Datetime: 03/04/2016 13:58 IV/Blood Work: IV Saline Locked (Arlen Otero RN) Communication Comments: Martti at bedside connected to lap winder. All consents signed. All questions answered. Assessment and hitsory completed with martti dry wall applicator assistance. (Arlen Otero RN) Datetime: 03/04/2016 13:47 Stage of : Recovery (Arlen Otero RN) NBP Sys/Arlin/Mean (mmHg): 148 (QS system process) : 77 (QS system process) : 105 (QS system process) Pulse: 64 (QS system process) Respirations: 12 (Arlen Otero RN) Datetime: 03/04/2016 13:45 Stage of : Recovery (Arlen Otero RN) Pain Scale: 2 (Arlen Otero RN) Pain Presence: Intermittent (Arlen Otero RN) Pain Type: Cramping (Arlen Otero RN) Pain Location: Abdomen (Arlen Otero RN) Pain Goal: 1 (Arlen Otero RN) Pain Relief Measures: Comfort Measures (Arlen Otero, MADELINE) Datetime: 03/04/2016 13:31 Stage of : Recovery (Arlen Otero RN) NBP Sys/Arlin/Mean (mmHg): 151 (QS system process) : 71 (QS system process) : 101 (QS system process) Pulse: 60 (QS system process) Respirations: 14 (Arlen Otero RN) Datetime: 03/04/2016 13:30 Stage of : Recovery (Arlen Otero RN) Pain Scale: 3 (Arlen Otero RN) Pain Presence: Intermittent (Arlen Otero RN) Pain Type: Cramping (Arlen Otero RN) Pain Location: Abdomen (Arlen Otero RN) Pain Goal: 1 (Arlen Otero RN) Pain Relief Measures: Comfort Measures (Arlen Otero RN) Datetime: 03/04/2016 13:17 Stage of : Recovery ([facility], [facility] Pain Presence: Intermittent ([facility], ) Pain Type: Cramping ([facility], ) Pain Location: Abdomen ([facility], ) [facility] Pain Relief Measures: Pain Medication Given; Comfort Measures ([facility], ) Datetime: 03/04/2016 13:16 Stage of : Recovery ([facility], ) NBP Sys/Arlin/Mean (mmHg): 135 (QS system process) : 69 (QS system process) : 94 (QS system process) Pulse: 62 (QS system process) Respirations: 14 ([facility], ) Datetime: 03/04/2016 13:15 Stage of : Recovery (Arlen [place], RN) Datetime: 03/04/2016 13:13 Stage of : Recovery (Arlen [place], RN) Datetime: 03/04/2016 13:12 Stage of : Recovery (Arlen [place], RN) Datetime: 03/04/2016 13:07 Stage of : Recovery (Arlen [place], RN) Datetime: 03/04/2016 13:00 Stage of : Recovery (Arlen Otero, RN) Pain Scale: 2 (Arlen Otero, RN) Pain Presence: Intermittent (Arlen Branden, RN) Pain Type: Cramping (Arlen [place], RN) Pain Location: Abdomen (Arlen [place], RN) Pain Goal: 1 (Arlen [place], RN) Pain Relief Measures: Comfort Measures (Arlen [place], RN) Datetime: 03/04/2016 12:45 Stage of : Recovery (Arlen [place], RN) Pain Scale: 2 (Arlen [place], RN) Pain Presence: Intermittent (Arlen [place], RN) Pain Type: Cramping (Arlen [place], RN) Pain Location: Abdomen (Arlen [place], RN) Pain Goal: 1 (Arlen [place], RN) Pain Relief Measures: Comfort Measures (Arlen [place], RN) Datetime: 03/04/2016 12:41 Stage of : Labor (Arlen Otero, RN) Communication: RN at Bedside (Arlen Otero, RN) Communication Comments: Martti at bedside attempting to connect. Unable to connect, IT contacted for repair (Arlen Otero, RN) Datetime: 03/04/2016 12:31 NBP Sys/Arlin/Mean (mmHg): 132 (QS system process) : 60 (QS system process) : 87 (QS system process) Pulse: 122 (QS system process) Datetime: 03/04/2016 12:30 Stage of : Recovery (Arlen Otero RN) Datetime: 03/04/2016 12:20 Stage of : Recovery (Arlen Otero RN) Temperature (F): 98.1 (Arlen Otero RN) Temperature (C): 36.7 (QS system process) Temperature Route: Oral (Arlen Otero RN) Pain Scale: 2 (Arlen Otero RN) Pain Presence: Intermittent (Arlen Otero RN) Pain Type: Cramping (Arlen Otero RN) Pain Location: Abdomen (Arlen Oteor RN) Pain Goal: 1 (Arlen Otero RN) Pain Relief Measures: Comfort Measures (Arlen Otero RN) Datetime: 03/04/2016 12:16 Stage of : Recovery (Arlen Otero RN) NBP Sys/Arlin/Mean (mmHg): 122 (QS system process) : 65 (QS system process) : 87 (QS system process) Pulse: 77 (QS system process) Respirations: 14 (Arlen Otero RN) Datetime: 03/04/2016 12:01 NBP Sys/Arlin/Mean (mmHg): 130 (QS system process) : 68 (QS system process) : 92 (QS system process) Pulse: 77 (QS system process) Datetime: 03/04/2016 12:00 Stage of : Recovery (Arlen Otero, RN)
[2016-03-04] MEDS: DOCUSATE SODIUM 100 MG CAPSULE PO SCH (18:37)
[2016-03-04] MEDS: FERROUS SULFATE 325 MG TABLET PO SCH (18:38)
--- NOTE | 2016-03-04 19:01 | L&D Flow Sheet ---
LD Flowsheet Datetime Report Generated by CPN: 03/04/2016 19:00 Datetime: 03/04/2016 15:50 Stage of : Recovery (Arlen Otero, RN) Datetime: 03/04/2016 15:45 Stage of : Recovery (Arlen Otero, RN) Pain Scale: 1 (Arlen Otero, RN) Pain Presence: Intermittent (Arlen Otero, RN) Pain Type: Cramping (Arlen Otero, RN) Pain Location: Abdomen (Arlen Otero, RN) Pain Goal: 1 (Arlen [place], RN) Pain Relief Measures: Comfort Measures (Arlen [place], RN) Datetime: 03/04/2016 15:02 Stage of : Recovery (Arlen Otero, RN) Datetime: 03/04/2016 14:15 Stage of : Recovery (Arlen Friedmanard, RN) Datetime: 03/04/2016 14:01 Stage of : Recovery (Arlen Friedmanard, RN) NBP Sys/Arlin/Mean (mmHg): 168 (QS system process) : 77 (QS system process) : 110 (QS system process) Pulse: 59 (QS system process) Respirations: 16 (Arlen Otero RN) Datetime: 03/04/2016 14:00 Stage of : Recovery (Arlen Otero RN) Pain Scale: 2 (Arlen Otero RN) Pain Presence: Intermittent (Arlen Otero RN) Pain Type: Cramping (Arlen Otero RN) Pain Location: Abdomen (Arlen Otero RN) Pain Goal: 1 (Arlen Otero RN) Pain Relief Measures: Comfort Measures (Arlen Otero RN) Datetime: 03/04/2016 13:58 IV/Blood Work: IV Saline Locked (Arlen Otero RN) Communication Comments: Martti at bedside connected to tool pusher. All consents signed. All questions answered. Assessment and hitsory completed with martti studio sales associate assistance. (Arlen Otero RN) Datetime: 03/04/2016 13:47 Stage of : Recovery (Arlen Otero, MADELINE) NBP Sys/Arlin/Mean (mmHg): 148 (QS system process) : 77 (QS system process) : 105 (QS system process) Pulse: 64 (QS system process) Respirations: 12 (Arlen Otero, MADELINE) Datetime: 03/04/2016 13:45 Stage of : Recovery (Arlen Otero, MADELINE) Pain Scale: 2 (Arlen Otero, MADELINE) Pain Presence: Intermittent (Arlen Otero, MADELINE) Pain Type: Cramping (Arlen Otero, MADELINE) Pain Location: Abdomen (Arlen Otero, RN) Pain Goal: 1 (Arlen Otero, RN) Pain Relief Measures: Comfort Measures (Arlen Otero, ) Datetime: 03/04/2016 13:31 Stage of : Recovery (Arlen Otero, MADELINE) NBP Sys/Arlin/Mean (mmHg): 151 (QS system process) : 71 (QS system process) : 101 (QS system process) Pulse: 60 (QS system process) Respirations: 14 (Arlen Otero, MADELINE) Datetime: 03/04/2016 13:30 Stage of : Recovery (Arlen Otero, MADELINE) Pain Scale: 3 (Arlen Otero, RN) Pain Presence: Intermittent (Arlen Otero, RN) Pain Type: Cramping (Arlen Otero, RN) Pain Location: Abdomen (Arlen Otero, RN) Pain Goal: 1 (Arlen Otero, RN) Pain Relief Measures: Comfort Measures (Arlen Otero, RN) Datetime: 03/04/2016 13:17 Stage of : Recovery (Arlen Branden, RN) Pain Scale: 3 (Arlen Otero RN) Pain Presence: Intermittent (Arlen Otero RN) Pain Type: Cramping (Arlen Otero RN) Pain Location: Abdomen (Arlen Otero RN) Pain Goal: 1 (Arlen Otero RN) Pain Relief Measures: Pain Medication Given; Comfort Measures (Arlen Otero RN) Datetime: 03/04/2016 13:16 Stage of : Recovery (Arlen Otero RN) NBP Sys/Arlin/Mean (mmHg): 135 (QS system process) : 69 (QS system process) : 94 (QS system process) Pulse: 62 (QS system process) Respirations: 14 (Arlen Otero, MADELINE) Datetime: 03/04/2016 13:15 Stage of : Recovery (Arlen Otero RN) Datetime: 03/04/2016 13:13 Stage of : Recovery (Arlen Branden, RN) Datetime: 03/04/2016 13:12 Stage of : Recovery (Arlen Branden, RN) Datetime: 03/04/2016 13:07 Stage of : Recovery (Arlen [place], RN) Datetime: 03/04/2016 13:00 [facility] : [facility] Pain Scale: 2 (Arlen [place], RN) Pain Presence: Intermittent (Arlen [place], RN) Pain Type: Cramping (Arlen Branden, RN) Pain Location: Abdomen (Arlen Branden, RN) Pain Goal: 1 [facility] Pain Relief Measures: Comfort Measures (Arlen [place], RN) Datetime: 03/04/2016 12:45 Stage of : [facility] Pain Scale: 2 [facility] Pain Presence: Intermittent (Arlen [place], RN) Pain Type: Cramping (Arlen [place], RN) Pain Location: Abdomen [facility] Pain Goal: 1 [facility] Pain Relief Measures: Comfort Measures (Arlen [place], RN) Datetime: 03/04/2016 12:41 Stage of : Labor (Arlen Otero, RN) Communication: RN at Bedside (Arlen Otero, RN) Communication Comments: Martti at bedside attempting to connect. Unable to connect, IT contacted for repair (Arlne Otero, RN) Datetime: 03/04/2016 12:31 NBP Sys/Arlin/Mean (mmHg): 132 (QS system process) : 60 (QS system process) : 87 (QS system process) Pulse: 122 (QS system process) Datetime: 03/04/2016 12:30 Stage of : Recovery (Arlen Branden, RN) Datetime: 03/04/2016 12:20 Stage of : Recovery (Arlen Otero, MADELINE) Temperature (F): 98.1 (Arlen Otero RN) Temperature (C): 36.7 (QS system process) Temperature Route: Oral (Arlen Otero, MADELINE) Pain Scale: 2 (Arlen Otero RN) Pain Presence: Intermittent (Arlen Otero RN) Pain Type: Cramping (Arlen Otero RN) Pain Location: Abdomen (Arlen Otero, RN) Pain Goal: 1 (Arlen Otero RN) Pain Relief Measures: Comfort Measures (Arlen Otero, MADELINE) Datetime: 03/04/2016 12:16 Stage of : Recovery (Arlen [place], MADELINE) NBP Sys/Arlin/Mean (mmHg): 122 (QS system process) : 65 (QS system process) : 87 (QS system process) Pulse: 77 (QS system process) Respirations: 14 (Arlen [place], MADELINE) Datetime: 03/04/2016 12:01 NBP Sys/Arlin/Mean (mmHg): 130 (QS system process) : 68 (QS system process) : 92 (QS system process) Pulse: 77 (QS system process) Datetime: 03/04/2016 12:00 Stage of : Recovery (Arlen Otero RN) Datetime: 03/04/2016 11:56 Monitor Mode: External US (Arlen Otero RN) FHR Baseline Rate : 115 (Arlen Otero RN) FHR Baseline Changes: No Baseline Change (Arlen Otero RN) Variability: Moderate 6-25 bpm (Arlen Otero RN) Accelerations: 15X15 (Arlen Otero RN) Decelerations: Early; Variable (Arlen Otero RN) Comments: patient pushing with contractions (Arlen Otero RN) Communication Comments: Called nursery for delivery (Mariah Olivares RN) Datetime: 03/04/2016 11:55 Communication: Provider at Bedside (Mariah Olivares RN) Communication Comments: DrYesenia Rahman at bedside (Mariah Olivares, MADELINE) Datetime: 03/04/2016 11:52 Patient Position/Activity: Right Lateral; Low Fowlers (Arlen Otero, MADELINE) Datetime: 03/04/2016 11:51 Actions for Decelerations: Oxygen Applied (Arlen Otero, MADELINE) Comments: OP (Arlen Otero, MADELINE) Oxygen Amount : 10 (Arlen Otero RN) Pushing: Coached on Pushing; Urge to Push (Arlen Otero RN) Pushing Position: Pushing with Contractions; Pushing Lithotomy (Arlen Otero RN) Pushing Progress: Pushing Effectively with Contractions (Arlen Otero RN) Stage 2 Comments: Pull technique (Arlen Otero RN) Communication: RN at Bedside; Provider at Bedside (Arlen Otero RN) Datetime: 03/04/2016 11:45 Monitor Mode: External (Mariah Olivares RN) Frequency (min): 1.5-3 (Mariah Olivares RN) Quality: Moderate to Strong (Mariah Olivares RN) Duration (sec): 60-120 (Mariah Olivares RN) Resting Tone (Palpate): Relaxed (Mariah Olivares RN) Monitor Mode: Internal Scalp Electrode (Mariah Olivares RN) FHR Baseline Rate : 125 (Mariah Olivares RN) Variability: Moderate 6-25 bpm (Mariah Olivares RN) Accelerations: 15X15 (Mariah Olivares RN) Decelerations: Late; Variable (Mariah Olivares RN) Provider Reviewed Strip: Yes (Arlen Otero RN) Communication: RN at Bedside; RN Reviewed Strip; Provider at Bedside (Arlen Otero RN) Provider Notified (Name): Michelle Rodríguez CNM remain at beside (Arlen Otero RN) Datetime: 03/04/2016 11:35 Dilatation (cm): 10.0 (Arlen Otero, RN) Effacement (%): 100 (Arlen Otero, RN) Station: 0 (Arlen Otero, RN) Exam by: Michelle Rodríguez CNM (Arlen [place], RN) Vaginal Bleeding: Normal Show (Arlen Branden, RN) Cervix, Consistency: Soft (Arlen [place], RN) Cervix, Position: Midposition (Arlen [place], RN) Vaginal Exam Comments: OP (Arlen Otero, RN) Datetime: 03/04/2016 11:33 Pushing: Coached on Pushing; Urge to Push (Arlen Otero, RN) Pushing Position: Pushing with Contractions; Pushing Lithotomy (Arlen Otero, RN) Pushing Progress: Descent with Pushing; Pushing Effectively with Contractions (Arlen Branden, RN) Datetime: 03/04/2016 11:30 Monitor Mode: External; Palpation (Arlen [place], RN) Monitor Mode: External (Mariah Marlatt, RN) Frequency (min): 1-2.5 (Arlen [place], RN) Frequency (min): 1.5-2.5 (Mariah Marlatt, RN) Quality: Moderate to Strong (Arlen [place], RN) Quality: Moderate to Strong (Mariah Marlatt, RN) Duration (sec): 60-90 (Arlen [place], RN) Duration (sec): 60-90 (Mariah Marlatt, RN) Duration Criteria: Less than Two 120 Second Contractions (Arlen [place], RN) Pattern: Normal: <= 5 Contractions in 10 Minutes (Arlen [place], RN) Resting Tone (Palpate): Relaxed (Arlen Branden, RN) Resting Tone (Palpate): Relaxed (Mariah [place]att, RN) Monitor Mode: External US; Internal Scalp Electrode (Arlen Branden, RN) Monitor Mode: External US; Internal Scalp Electrode (Mariah Marlatt, RN) FHR Baseline Rate : 125 (Arlen [place], RN) FHR Baseline Rate : 125 (Mariah Marlatt, RN) FHR Baseline Changes: No Baseline Change (Arlen [place], RN) Variability: Moderate 6-25 bpm (Arlen [place], RN) Variability: Moderate 6-25 bpm (Mariah Marlatt, RN) Accelerations: 15X15 (Arlen [place], RN) Accelerations: 10X10 (Mariah Marlatt, RN) Decelerations: Early (Arlen Branden, RN) Decelerations: Variable (Mariah Marlatt, RN) Datetime: 03/04/2016 11:28 Monitor Interventions for FHR: FSE Applied (Arlen [place], RN) Datetime: 03/04/2016 11:22 Pushing: Coached on Pushing; Urge to Push (Arlen [place], RN) Pushing Position: Pushing with Contractions (Arlen [place], RN) Pushing Progress: Descent with Pushing; Pushing Effectively with Contractions (Arlen [place], RN) Datetime: 03/04/2016 11:19 Communication: RN at Bedside; Provider at Bedside (Arlen Branden, RN) Datetime: 03/04/2016 11:15 Monitor Mode: External (Mariah Marlatt, RN) Quality: Moderate to Strong (Mariah Marlatt, RN) Resting Tone (Palpate): Relaxed (Mariah Marlatt, RN) Contraction Comments: difficult to determine frequency and duration due to patient positoning (Mariah Marlatt, RN) Monitor Mode: External US (Mariah Marlatt, RN) FHR Baseline Rate : 120 (Mariah Marlatt, RN) Variability: Moderate 6-25 bpm (Mariah Marlatt, RN) Accelerations: 15X15 (Mariah Marlatt, RN) Datetime: 03/04/2016 11:05 Patient Position/Activity: Hands-Knees (Arlen Branden, RN) Communication: RN at Bedside (Arlen Branden, RN) Datetime: 03/04/2016 11:00 Monitor Mode: External (Mariah Olivares RN) Frequency (min): 1.5-4 (Mariah Olivares RN) Quality: Moderate to Strong (Mariah Olivares RN) Duration (sec): 70-110 (Mariah Olivares RN) Resting Tone (Palpate): Relaxed (Mariah Olivares RN) Monitor Mode: External US (Mariah Olivares RN) FHR Baseline Rate : 120 (Mariah Olivares RN) Variability: Moderate 6-25 bpm (Mariah Olivares RN) Accelerations: 15X15 (Mariah Olivares RN) Datetime: 03/04/2016 10:58 NBP Sys/Arlin/Mean (mmHg): 144 (QS system process) : 86 (QS system process) : 110 (QS system process) Pulse: 64 (QS system process) Dilatation (cm): 9.0 (Arlen Otero, MADELINE) Effacement (%): 90 (Arlen Otero, RN) Station: 1 (Arlen Otero, RN) Exam by: Michelle Rodríguez CNM (Arlen Otero, RN) Vaginal Bleeding: Normal Show (Arlen Otero, RN) Cervix, Consistency: Soft (Arlen Otero, RN) Cervix, Position: Midposition (Arlen Otero, RN) IV/Blood Work: IV Infusing per Order (Arlen Otero, RN) Communication: RN at Bedside; Provider at Bedside (Arlen Otero, RN) LaborFlag: Labor (QS system process) Datetime: 03/04/2016 10:49 Comments: RN at bedside continuoulsy assessing FHT while patiet pushes with contractions (Arlen Otero, MADELINE) Provider Reviewed Strip: Yes (Arlen Otero RN) Preparation for Delivery: Setup for Delivery (Arlen Otero RN) Communication: RN at Bedside; RN Reviewed Strip; Provider at Bedside (Arlen Otero RN) Provider Notified (Name): Michelle Rodríguez CNM (Arlen tOero, MADELINE) Notification Reason: Status Update; Status; Labor Status; Membrane Status; Uterine Activity; Pain; Lab/Diagnostic Study (Arlen Otero RN) Datetime: 03/04/2016 10:45 Monitor Mode: External; Palpation (Arlen Otero RN) Frequency (min): 1-5 (Arlen Otero RN) Quality: Moderate to Strong (Arlen Otero RN) Duration (sec): 60-90 (Arlen Otero RN) Duration Criteria: Less than Two 120 Second Contractions (Arlen Otero RN) Pattern: Normal: <= 5 Contractions in 10 Minutes (Arlen Otero RN) Resting Tone (Palpate): Relaxed (Arlen Otero RN) Monitor Mode: External US (Arlen Otero RN) FHR Baseline Rate : 120 (Arlen Otero RN) FHR Baseline Changes: No Baseline Change (Arlen Otero RN) Variability: Moderate 6-25 bpm (Arlen Otero RN) Accelerations: 15X15 (Arlen Otero RN) Decelerations: Early; Variable (Arlen Otero RN) Provider Reviewed Strip: Yes (Arlen Otero RN) Communication: RN at Bedside; RN Reviewed Strip; Provider at Bedside (Arlen Otero RN) Datetime: 03/04/2016 10:33 Dilatation (cm): 6.0 (Arlen Otero, RN) Effacement (%): 80 (Arlen Otero, RN) Station: 0 (Arlen Otero, RN) Exam by: Amy Otero RN (Arlen Otero, RN) Vaginal Bleeding: Normal Show (Arlen Otero, RN) Cervix, Consistency: Soft (Arlen Otero, RN) Cervix, Position: Midposition (Arlen Otero, RN) Communication: Call/Page Placed to Provider (Arlen Otero, RN) Provider Notified (Name): Michelle Rodríguez CNM notifying of patient cervical change in dilation. (Arlen Otero, MADELINE) Datetime: 03/04/2016 10:30 Monitor Mode: External; Palpation (Arlen Otero, MADELINE) Frequency (min): 3-5 (Arlen Otero, RN) Quality: Moderate to Strong (Arlen Otero, RN) Duration (sec): 60-90 (Arlen Otero, RN) Duration Criteria: Less than Two 120 Second Contractions (Arlen Otero, RN) Pattern: Normal: <= 5 Contractions in 10 Minutes (Arlen Otero, RN) Resting Tone (Palpate): Relaxed (Arlen Otero, MADELINE) Monitor Mode: External US (Arlen Otero, MADELINE) FHR Baseline Rate : 125 (Arlen Otero, MADELINE) FHR Baseline Changes: No Baseline Change (Arlen Otero, MADELINE) Variability: Moderate 6-25 bpm (Arlen Otero, RN) Accelerations: 15X15 (Arlen Otero, RN) Decelerations: Early; Variable (Arlen Otero, RN) Datetime: 03/04/2016 10:26 Monitor Interventions for UA: Forest Adjusted (Arlen Otero, MADELINE) Monitor Mode: External US (Arlen Otero, MADELINE) Monitor Interventions for FHR: Ultrasound Adjusted (Arlen Otero, MADELINE) Pain Scale: 5 (Arlen Otero RN) Pain Presence: Intermittent (Arlen Otero, MADELINE) Pain Type: Contraction (Arlen Otero, MADELINE) Pain Location: Abdomen; Back (Arlen Otero, MADELINE) Pain Goal: 1 (Arlen [place], RN) Pain Relief Measures: Comfort Measures (Arlen Otero, RN) Pain Coping: Breathing Through Contractions (Arlen Otero, RN) Vaginal Bleeding: Scant (Arlen Otero, RN) Level of Consciousness: Fully Conscious (Arlen Otero, RN) DTR's/Clonus: DTRs 2+; No Clonus (Arlen Otero, RN) Headache: Denies (Arlen Otero, RN) Breath Sounds, Left: Clear and Equal (Arlen Otero, RN) Breath Sounds, Right: Clear and Equal (Arlen Otero, RN) Nausea/Vomiting: Denies (Arlen Otero, RN) RUQ Epigastric Pain: Denies (Arlen Otero, RN) IV/Blood Work: IV Infusing per Order (Arlen Otero, RN) Oxygen Method: Room Air (Arlen Otero, RN) Comfort Measures: Breathing/Relaxation; Coaching; Family Support (Arlen Otero, RN) I/O Interventions: Clear Liquids Given (Arlen Otero, RN) Instructional Method: Verbal; Patient Instructed; Family/Support Person Instructed (Annotations: patient cuban speaking) (Arlen Otero, RN) Plan of Care: Plan of Care Discussed; Vaginal Delivery (Arlen Otero, RN) Unit Routine: [place] to Room; Call Benson; Bed; Unit Personnel; Handwashing; Flu/Illness Precautions; Monitoring; IV Pumps; Safety/Fall Risk Prevention; Bathroom Privileges (Arlen Otero, RN) Labor/Induction: Labor Stages (Arlen Otero, RN) Pain Management: Pain Scale/Goals; Comfort Measures (Arlen Otero, RN) Related: Common Discomforts of ; Maternal Physical Changes; Maternal Emotional Changes; Nutrition; Hydration; Activity and Rest (Arlen Otero, RN) LaborFlag: Labor (QS system process) Datetime: 03/04/2016 10:25 Stage of : Labor (Arlen Otero, MADELINE) NBP Sys/Arlin/Mean (mmHg): 138 (QS system process) : 79 (QS system process) : 103 (QS system process) Pulse: 67 (QS system process) Respirations: 18 (Arlen Otero, RN) LaborFlag: Labor (QS system process) Datetime: 03/04/2016 10:15 Monitor Mode: External (Arlen Otero, RN) Frequency (min): 3-5 (Arlen Otero, RN) Quality: Moderate to Strong (Arlen Otero, RN) Duration (sec): 70-100 (Arlen Otero, RN) Duration Criteria: Less than Two 120 Second Contractions (Arlen Otero, RN) Pattern: Normal: <= 5 Contractions in 10 Minutes (Arlen Otero, RN) Resting Tone (Palpate): Relaxed (Arlen Otero, RN) Monitor Mode: External US (Arlen Otero, RN) FHR Baseline Rate : 125 (Arlen Otero, RN) FHR Baseline Changes: No Baseline Change (Arlen Otero, RN) Variability: Moderate 6-25 bpm (Arlen Branden, RN) Accelerations: 15X15 (Arlen Branden, RN) Decelerations: Early (Arlen Otero, RN) Datetime: 03/04/2016 10:12 IV/Blood Work: IV Started; IV Bolus Started; New IV Bag Hung; IV Bag Number @ 1 (Arlen tOero RN) Patient Position/Activity: Left Tilt; Low Fowlers (Arlen Otero, MADELINE) Datetime: 03/04/2016 10:00 Monitor Mode: External; Palpation (Arlen Otero, MADELINE) Frequency (min): 2-4 (Arlen Otero, MADELINE) Quality: Moderate to Strong (Arlen Otero, RN) Duration (sec): 60-90 (Arlen Otero, RN) Duration Criteria: Less than Two 120 Second Contractions (Arlen Otero, RN) Pattern: Normal: <= 5 Contractions in 10 Minutes (Arlen Otero, RN) Resting Tone (Palpate): Relaxed (Arlen Otero, RN) Monitor Mode: External US (Arlen Otero, RN) FHR Baseline Rate : 135 (Arlen Otero, RN) FHR Baseline Changes: No Baseline Change (Arlen Otero, RN) Variability: Moderate 6-25 bpm (Arlen Otero, RN) Accelerations: 15X15 (Arlen Otero, RN) Decelerations: Early (Arlen Otero, RN) Comments: reports positive movement (Arlen Otero, RN) Datetime: 03/04/2016 09:56 Dilatation (cm): 5.0 (Arlen Otero RN) Effacement (%): 80 (Arlen Otero RN) Station: -1 (Arlen Otero RN) Exam by: Amy Otero RN (Arlen Otero RN) Vaginal Bleeding: Scant (Arlen Otero RN) Cervix, Consistency: Soft (Arlen Otero RN) Cervix, Position: Midposition (Arlen Otero RN) Datetime: 03/04/2016 09:55 NBP Sys/Arlin/Mean (mmHg): 129 (QS system process) : 84 (QS system process) : 102 (QS system process) Pulse: 72 (QS system process) LaborFlag: Labor (QS system process) Datetime: 03/04/2016 09:47 Stage of : Labor (Arlen Otero RN) Communication Comments: Martti at bedside attempting to connect to aquacultural worker supervisor services for primarily cuban speaking patient. Patient understands some Cameroonian (Arlen Otero RN)
[2016-03-04] MEDS: FAMOTIDINE 20 MG TABLET PO SCH (21:16)
[2016-03-05] MEDS: IBUPROFEN 800 MG TABLET PO SCH ×3 (05:05→23:03)
--- NOTE | 2016-03-05 06:05 | L&D General Admission ---
General Admit Datetime Report Generated by CPN: 03/05/2016 06:00 INFORMATION Patient Age: 25 (11/07/2015 16:59:QS system process) EDC: 03/04/2016 00:00 (11/07/2015 17:09:Chester Burk RN) : 2 (11/07/2015 17:09:Chester Burk RN) Para: 1 (02/28/2016 21:37:Tabitha Rothman RN) Term: 1 (11/07/2015 17:09:Chester Burk RN) : 0 (11/07/2015 17:09:Chester Burk RN) Spontaneous Abortions: 0 (11/07/2015 17:09:Chester Burk RN) Induced Abortions: 0 (11/07/2015 17:09:Chester Burk RN) Livin (11/07/2015 17:09:Chester Burk RN) Cesareans: 0 (11/07/2015 17:09:Chester Burk RN) VBACs: 0 (11/07/2015 17:09:Chester Burk RN) Ectopic: 0 (11/07/2015 17:09:Chester Burk RN) Multiple Births: 0 (11/07/2015 17:09:Chester Burk RN) Baby, Number in Womb: 1 (02/28/2016 21:37:Tabitha Rothman RN) CARE Primary Manager Planning: [facility] (11/07/2015 17:09:Chester Burk RN) Adequate Care: Yes (11/07/2015 17:09:Winifred Will RN) Height (in): 60 (03/04/2016 09:42:QS system process) ALLERGIES Medication Allergy: No (11/07/2015 17:09:Chester Burk RN) Medication Allergies: No Known Allergies (03/04/2016) (03/04/2016 09:41:QS system process) Latex Allergy: No Latex Allergies (11/07/2015 17:09:Arlen Otero RN) Food Allergies: None (11/07/2015 17:09:Winifred Will RN) Environmental Allergies: None (11/07/2015 17:09:Winifred Will RN) COMMUNICATION Primary Language: Tongan (11/07/2015 17:09:Chester Burk RN) Medical Tx Preferred Language: Tongan; Castilian (11/07/2015 17:09:Chester Burk RN) Japanese Communication Ability: 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, 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 (11/07/2015 17:09:Chester Burk RN) Communication Barrier(s): Language barrier; Hearing deficit (11/07/2015 17:09:Arlen Otero RN) DEMOGRAPHICS Address: [place] [address] (11/07/2015 16:59:QS system process) Zipcode: [phone] (11/07/2015 16:59:QS system process) Home (11/07/2015 16:59:QS system process) SSN: [id number] (11/07/2015 16:59:QS system process) Next of Kin Name: ELIN CLAROS (11/07/2015 16:59:QS system process) Next of Kin (11/07/2015 16:59:QS system process) Next of Kin Relationship: SPO (11/07/2015 16:59:QS system process) Date of : 1990 (11/07/2015 16:59:QS system process) Marital Status: Single (11/07/2015 16:59:QS system process) Sex: Female (11/07/2015 16:59:QS system process) Race: Other (11/07/2015 16:59:QS system process) Ethnicity: or (11/07/2015 16:59:QS system process) Holiness: Other (11/07/2015 16:59:QS system process) DRUG AND ALCOHOL USE Alcohol: No (11/07/2015 17:09:Winifred Will RN) Cigarettes: Never Smoker. 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 Professor Of Radiology: [facility] [place] (11/07/2015 17:09:Gia Houston RN) Feeding Preference: Both (11/07/2015 17:09:Gia Houston RN) Benefit of Breast Feed Discussed: Yes (11/07/2015 17:09:Gia Houston RN) Circumcision: No (11/07/2015 17:09:Gia Houston RN) Tubal Ligation: No (11/07/2015 17:09:Gia Houston RN) Tubal Authorization Signed: N/A (11/07/2015 17:09:Gia Houston RN) Consent: N/A (11/07/2015 17:09:Gia Houston RN) Consent Signed: N/A (11/07/2015 17:09:Gia Houston RN) Pain Management Plans: Natural; Medications (11/07/2015 17:09:Gia Houston RN) Plans for Labor and Delivery: None (11/07/2015 17:09:Gia Houston RN) Support Person: Markel (11/07/2015 17:09:Gia Houston RN) Support Person Relationship: (11/07/2015 17:09:Gia Houston RN) Cultural/Spritual Practice: No (11/07/2015 17:09:Gia Houston RN) Spir/Cult Dietary Needs: No (11/07/2015 17:09:Gia Houston RN) LIVING SITUATION/DISCHARGE PLAN Living Arrangements: House (11/07/2015 17:09:Gia Houston RN) Adequate Access to:: Electric; Heat; Refrigeration; Plumbing/Running water; Phone; Transportation (11/07/2015 17:09:Gia Houston RN) WIC Program: No (11/07/2015 17:09:Gia Houston RN) Discharge Cost Clerk Person: Markel (11/07/2015 17:09:Gia Houston RN) Person to Help after Discharge: Markel (11/07/2015 17:09:Gia Houston RN) Currently Using Commun Resources: No (11/07/2015 17:09:Gia Houston RN) Outside Agency/Smasher: N/A (11/07/2015 17:09:Gia Houston RN) Car Seat for Discharge: Yes (11/07/2015 17:09:Gia Houston RN) Adoption Requested: Yes (11/07/2015 17:09:Gia Houston RN) Pt Contact w/infant Post : N/A (11/07/2015 17:09:Gia Houston RN) LABS Blood Type: O Positive (11/07/2015 17:09:Lindsay Camarena RN) Antibody Screen: negative (11/07/2015 17:09:Lindsay Camarena RN) Hemoglobin: 12.9 (03/04/2016 13:40:QS system process) Hematocrit: 41.3 (03/04/2016 13:40:QS system process) MCV: 89 (03/04/2016 13:40:QS system process) Group Beta Strep: Negative (Annotations: Data stored by N on behalf of user) (11/07/2015 17:09:Arlen Otero RN) Gonorrhea: Negative (11/07/2015 17:09:Lindsay Camarena RN) Chlamydia: Negative (11/07/2015 17:09:Lindsay Camarena RN) HIV Results: nonreactive (11/07/2015 17:09:Lindsay Camarena RN) Hepatitis B: Negative (11/07/2015 17:09:Lindsay Camarena RN) Rubella: Immune (11/07/2015 17:09:Lindsay Camarena RN) Varicella: Non Susceptible (11/07/2015 17:09:Lindsay Camarena RN) Other Lab Procedures/Results: pos GBS in urine-treat (11/07/2015 17:09:Lindsay Camarena RN) OB/PREVIOUS HISTORY Previous Procedures: Ultrasound (11/07/2015 17:09:Winifred Will RN) Current Procedures: Ultrasound (11/07/2015 17:09:Winifred Will RN) History of Previous : No (11/07/2015 17:09:Winifred Will RN) History of Gestational Diabetes: No (11/07/2015 17:09:Winifred Will RN) History of PIH: No (11/07/2015 17:09:Wiinfred Wlil RN) History of Incompetent Cervix: No (11/07/2015 17:09:Winifred Will RN) History of Placenta Previa/Abrup: No (11/07/2015 17:09:Winifred Will RN) History of Macrosomia: No (11/07/2015 17:09:Winifred Will RN) History of IUGR: No (11/07/2015 17:09:Winifred Will RN) History of Hemorrhage: No (11/07/2015 17:09:Winifred Will RN) History of Loss/Stillborn: No (11/07/2015 17:09:Winifred Will RN) History of : No (11/07/2015 17:09:Winifred Will RN) History of D (Rh) Sensitization: No (11/07/2015 17:09:Winifred Will RN) History Recurrent Loss/Stillborn: No (11/07/2015 17:09:Winifred Will RN) History Depression/PP Depression: No (11/07/2015 17:09:Winifred Will RN) History of Uterine Anomaly/JENNIFFER: No (11/07/2015 17:09:Winifred Will RN) History of Infertility: No (11/07/2015 17:09:Winifred Will RN) History of ART Treatment: No (11/07/2015 17:09:Winifred Will RN) History of JENNIFFER: No (11/07/2015 17:09:Winifred Will RN) Comments Obstetrical History: G1 - 05/2009 - at 38wks, 3.249kg (in [place]) G2 - current (11/07/2015 17:09:Gia Houston RN) MEDICAL HISTORY Med Hx Diabetes: No (11/07/2015 17:09:Winifred Will RN) Med Hx Hypertension: No (11/07/2015 17:09:Winifred Will RN) Med Hx Heart Disease: No (11/07/2015 17:09:Winifred Will RN) Med Hx Autoimmune Disorder: No (11/07/2015 17:09:Winifred Will RN) Med Hx Kidney Disease/UTI: No (11/07/2015 17:09:Winifred Will RN) Med Hx Neurologic/Epilepsy: No (11/07/2015 17:09:Winifred Will RN) Med Hx Psychiatric Disorders: No (11/07/2015 17:09:Winifred Will RN) Med Hx Hepatitis/Liver Disease: No (11/07/2015 17:09:Winifred Will RN) Med Hx Varicosities/Phlebitis: No (11/07/2015 17:09:Winifred Will RN) Med Hx Thyroid Dysfunction: No (11/07/2015 17:09:Winifred Will RN) Med Hx Trauma/Violence: No (11/07/2015 17:09:Winifred Will RN) Med Hx Blood Transfusion: No (11/07/2015 17:09:Winifred Will RN) Med Hx Pulmonary (Asthma,TB): No (11/07/2015 17:09:Winifred Will RN) Med Hx Breast: No (11/07/2015 17:09:Winifred Will RN) Med Hx CYBER SECURITY INSTRUCTOR Surgery: No (11/07/2015 17:09:Winifred Will RN) Med Hx Hospitalization/Surgery: Yes (11/07/2015 17:09:Gia Houstno RN) Med Hx Anesthetic Complications: No (11/07/2015 17:09:Winifred Will RN) Med Hx Abnormal Pap Smear: No (11/07/2015 17:09:Winifred Will RN) Other Medical Diseases: No (11/07/2015 17:09:Winifred Will RN) Med Hx Significant Family Hx: No (11/07/2015 17:09:Winifred Will RN) Details of Med/Surg Hx: Hospitalized for first (11/07/2015 17:09:Gia Houston RN) INFECTIOUS HISTORY Inf Hx Gonorrhea: No (11/07/2015 17:09:Winifred Will RN) Inf Hx Chlamydia: No (11/07/2015 17:09:Winifred Will RN) Inf Hx Syphilis: No (11/07/2015 17:09:Winifred Will RN) Inf Hx HIV/AIDS: No (11/07/2015 17:09:Winifred Will RN) Inf Hx Human Papilloma Virus: No (11/07/2015 17:09:Winifred Will RN) Inf Hx Pt/Partner Genital Herpes: No (11/07/2015 17:09:Winifred Will RN) Inf Hx Tuberculosis/Exposure: No (11/07/2015 17:09:Winifred Will RN) Inf Hx Hepatitis B,C: No (11/07/2015 17:09:Winifred Will RN) Inf Hx Rash or Viral Illness: No (11/07/2015 17:09:Winifred Will RN) GENETIC HISTORY Gen Hx Age >=35 at DANK: No (11/07/2015 17:09:Winifred Will RN) Gen Hx Thalassemia: No (11/07/2015 17:09:Winifred Will RN) Gen Hx Congenital Heart Defect: No (11/07/2015 17:09:Winifred Will RN) Gen Hx Neural Tube Defect: No (11/07/2015 17:09:Winifred Will RN) Gen Hx Down's Syndrome: No (11/07/2015 17:09:Winifred Will RN) Gen Hx Davey-Sachs: No (11/07/2015 17:09:Winifred Will RN) Gen Hx Tami: No (11/07/2015 17:09:Winifred Will RN) Gen Hx Familial Dysautonomia: No (11/07/2015 17:09:Winifred Will RN) Gen Hx Sickle Cell Disease/Trait: No (11/07/2015 17:09:Winifred Will RN) Gen Hx Hemophilia/Blood Disorder: No (11/07/2015 17:09:Winifred Will RN) Gen Hx Muscular Dystrophy: No (11/07/2015 17:09:Winifred Will RN) Gen Hx Cystic Fibrosis: No (11/07/2015 17:09:Winifred Will RN) Gen Hx Huntingtons Chorea: No (11/07/2015 17:09:Winifred Will RN) Gen Hx Mental Retardation/Autism: No (11/07/2015 17:09:Winifred Will RN) Gen Hx Tested for Fragile X: No (11/07/2015 17:09:Winifred Will RN) Gen Hx Other Inher/Chromosomal: No (11/07/2015 17:09:Winifred Will RN) Gen Hx Maternal Metabolic DO: No (11/07/2015 17:09:Winifred Will RN) Gen Hx Pt Father or FOB Defect: No (11/07/2015 17:09:Winifred Will RN) Gen Hx Other Genetic History: No (11/07/2015 17:09:Winifred Will RN) Gen Hx Drugs/Meds since LMP: Yes (11/07/2015 17:09:Gia Houston RN) Gen Hx Medications: pnv, tums, tylenol (11/07/2015 17:09:Gia Houston RN)
--- NOTE | 2016-03-05 06:05 | L&D Current Admission ---
Current Admit Datetime Report Generated by CPN: 03/05/2016 06:00 ADMISSION INFORMATION Current Admit Date/Time: 03/04/2016 09:40 (03/04/2016 10:26:Arlen Otero RN) Reason for Admission: Onset of Labor; Rupture of Membranes (03/04/2016 10:26:Arlen Otero RN) Chief Complaint: Contractions; Suspected Rupture of Membranes (03/04/2016 10:26:Arlen Otero RN) Meds During -Oth: Denies (03/04/2016 10:26:Arlen Otero RN) EGA per Dates: 40.0 (03/04/2016 10:26:QS system process) Method of Arrival: Wheelchair (03/04/2016 10:26:Arlen Otero RN) Admitted From: Home (03/04/2016 10:26:Arlen Otero RN) Reason for Induction: Not Applicable (03/04/2016 10:26:Arlen Otero RN) Records Available: Yes (03/04/2016 10:26:Arlen Otero RN) General Admission Information: Reviewed (03/04/2016 10:26:Arlen Otero RN) General Admission Reviewed By: Arlen Otero RN (03/04/2016 10:26:Arlen Otero RN) BELONGINGS/ADVANCED DIRECTIVES Valuables/Personal Effects: Purse/Wallet; Cell Phone; Jewelry (03/04/2016 10:26:Arlen Otero RN) Other Belongings: See [facility] belongings form (03/04/2016 10:26:Arlen Otero RN) Disposition of Belongings: Kept with Patient (03/04/2016 10:26:Arlen Otero RN) Advance Direct for Healthcare: No, and Wants No Information (03/04/2016 10:26:Arlen Otero RN) Durable Power of Rug Dry Room Attendant: No (03/04/2016 10:26:Arlen Otero RN) Living Will: No (03/04/2016 10:26:Arlen Otero RN) Organ Donor: No (03/04/2016 10:26:Arlen Otero RN) Pt Rights Information Given: Yes (03/04/2016 10:26:Arlen Otero RN) Pt Understands Pt Rights: Yes (03/04/2016 10:26:rAlen Otero RN) LEARNING ASSESSMENT Knowledge Level: Understands L_D Process; Understands Diagnosis (03/04/2016 10:26:Arlen Otero RN) Barriers to Learning: Communication Barrier (03/04/2016 10:26:Arlen Otero RN) Learning Readiness: Motivated (03/04/2016 10:26:Arlen Otero RN) Learns Best By: 1 to 1 Instruction; Reading (03/04/2016 10:26:Arlen Otero RN) Learning Needs: Labor and Delivery Process; Pain Management; Symptoms to Report; Treatment Plan; Medication; Diagnosis; Nutrition; Equipment; Care; Community Resources (03/04/2016 10:26:Arlen Otero RN) Learning Assessment Comments: Patient is kiswahili speaking; Rigoti on unit (03/04/2016 10:26:Arlen Otero RN) DOMESTIC VIOLANCE SCREENING Dom Viol Threatened/Hurt: No (03/04/2016 10:26:Arlen Otero RN) Hx of Abuse/Neglect past 2yrs: No (03/04/2016 10:26:Arlen Otero RN) Feel Unsafe Going Home: No (03/04/2016 10:26:Arlen Otero RN) Addt'l Observ Indicating Abuse: No (03/04/2016 10:26:Arlen Otero RN) Reason Unable to Complete Screen: N/A, Screen Completed (03/04/2016 10:26:Arlen Otero RN) Considered Personal Harm/Suicide: No (03/04/2016 10:26:Arlen Otero RN) NUTRITIONAL/FUNCTIONAL SCREENING Problem with Appetite >5 Days: No (03/04/2016 10:26:Arlen Otero RN) Chew/Swallow Difficulties: No (03/04/2016 10:26:Arlen Otero RN) Inappropriate Wt Gain/Loss: No (03/04/2016 10:26:Arlen Otero RN) Presence Skin Breakdown/Ulcer: No (03/04/2016 10:26:Arlen Otero RN) Special Diet: No (03/04/2016 10:26:Arlen Otero RN) Pt Requests Hemodialysis Patient Care Specialist Visit: No (03/04/2016 10:26:Arlen Otero RN) Hx of Any of the Following?: N/A (03/04/2016 10:26:Arlen Otero RN) New Diagnosis of: N/A (03/04/2016 10:26:Arlen Otero RN) Requires Assist w/Ambulation: No (03/04/2016 10:26:Arlen Otero RN) Uses Assist Device to Ambulate: No (03/04/2016 10:26:Arlen Otero RN) Pt Requires Help w/ADL's: No (03/04/2016 10:26:Arlen Otero RN)
--- NOTE | 2016-03-05 06:26 | L&D Care Plan ---
LD CARE PLANS Datetime Report Generated by CPN: 03/05/2016 06:15 Datetime: 03/04/2016 10:01 State: Risk For (Tonny Grayson RN) Related To: Labor and Delivery Process; Post (Tonny Grayson RN) Goal(s): Patients Pain will be Assessed and Managed; Patient will Verbalize Adequate Relief of Pain or the Ability to [place] with Current Pain (Tonny Grayson RN) Interventions: Assess Pain Severity on Scale of 0 (None) to 5 (Severe); Assess Type, Location and Intensity of Pain Each Time Client Reports Discomfort and Notify Provider if Unusal Pain Develops; Encourage Proper Breathing and Relaxation Techniques; Offer Alternatives Such as Repositioning, Calm Environment, Massages, Diversional Activities, Ice Pack, Splinting, and Ambulation; Administer Analgesics as Ordered; Assist with Epidural Placement as Appropriate; Evaluate Therapeutic Effectiveness of Medication and Treatments (Tonny Grayson RN) Outcome: Patient will Report Absence or Relief of Pain Consistent with Established Pain Goal (Tonny Grayson RN) Status: Ongoing (Tonny Grayson RN) Outcome: Patient will have a Decrease in Signs and Symptoms of Discomfort (Tonny Grayson RN) Status: Ongoing (Tonny Grayson RN) Outcome: Pain will be Controlled During Procedures (Tonny Grayson RN) Status: Ongoing (Tonny Grayson RN) State: Risk For (Tonny Grayson RN) Related To: Labor and Delivery Process; Significant Life Event (Tonny Grayson RN) Goal(s): Patient will have Decreased Anxiety and be able to Function at Acceptable Levels (Tonny Grayson RN) Interventions: Assess Verbal and Nonverbal Behavioral Indicators of Anxiety; Assist Patient to Identify and Verbalize Symptoms of Anxiety; Identify and Demonstrate Techniques to Control Anxiety; Assist Patient with Coping Mechanisms to Manage Anxiety; Explain to Patient, Using a Calm Reassuring Approach and Nonmedical Terms, All Activities, Procedures, and Concerns; Instruct Patient and Family about Post Discharge Care, Limitations, Symptoms to Report and Resources Available (Tonny Grayson RN) Outcome: Patient will Identify, Verbalize and Demonstrate Techniques to Control Anxiety (Tonny Grayson RN) Status: Ongoing (Tonny Grayson RN) Outcome: Patient's Posture, Facial Expressions, Gestures and Activity Level will Reflect Decreased Anxiety (Tonny Grayson RN) Status: Ongoing (Tonny Grayson RN) Outcome: Patient will Verbalize a Sense of Control and/or Acceptance of the Situation (Tonny Grayson RN) Status: Ongoing (Tonny Grayson RN) Outcome: Patient will Identify and Utilize Support Person (Tonny Grayson RN) Status: Ongoing (Tonny Grayson RN) State: Risk For (Tonny Grayson RN) Related To: Labor and Delivery Process (Tonny Grayson RN) Goal(s): Patient will Accurately Verbalize Understanding of Plan of Care and Treatment; Patient and Family will Accurately Verbalize Understanding of the Disease Process (Tonny Grayson RN) Interventions: Assess Motivation and Willingness of Patient/Family to Learn; Assess Preferred Learning Mode: One to One Instruction, Reading, Videos, Group Discussion or Demonstration; Assess Barriers to Learning: Pain, Emotional State, Language Barrier, Cognitive Impairment, Visual or Hearing Deficits; Assess Patient and Family Knowledge of Disease Process, Medications and Treatment; Discuss Therapy and/or Treatment Options, Describe Rationale Behind Management, Therapy and Treatment Recommendations; Instruct Patient and Family on Signs and Symptoms to Report; Instruct Patient and Family on Medication Effects and Side Effects; Provide Appropriate and Timely Education Using Multiple Techniques; Provide Patient and Family with Support Group Information and Resources; Give Clear and Thorough Explanations and Demonstrations (Tonny Grayson RN) Outcome: Patient and Family will Verbalize Understanding of Condition, Treatment and Signs and Symptoms to Report (Tonny Grayson RN) Status: Ongoing (Tonny Grayson RN) Outcome: Patient will Identify Perceived Learning Needs and Express Motivation to Learn (Tonny Grayson RN) Status: Ongoing (Tonny Grayson RN) Outcome: Patient will Verbalize Understanding of Desired Content, and/or Performs Desired Skill Prior to Discharge (Tonny Grayson RN) Status: Ongoing (Tonny Grayson RN) State: Risk For (Tonny Grayson RN) Related To: Invasive Procedures (Tonny Grayson RN) Goal(s): The Patient will be Free of Infection, Vital Signs Stable and Lab Work within Normal Parameters (Tonny Grayson RN) Interventions: Instruct and Reinforce Proper Handwashing, Hygiene, and Care Techniques to Patient and Family; Monitor Vital Signs; Monitor Patient for the Following Signs of Infection: Fever, Abdominal Tenderness, Unusual Discharge; Monitor Aminiotic Fluid, Urine and Lochia for Color and Odor; Observe Wounds, Incisions and Invasive Line Sites for Redness, Drainage and Edema; Assess IV Sites per Hospital Policy; Monitor Lab and Test Results and Notify Provider of Abnormal Findings; Assess Nutritional Status and Promote Good Nutrition (Tonny Grayson RN) Outcome: Patient will Remain Free of Infection (Tonny Grayson RN) Status: Ongoing (Tonny Grayson RN) Outcome: Infection will be Recognized Early to Allow for Prompt Treatment (Tonny Grayson RN) Status: Ongoing (Tonny Grayson RN) Outcome: Patient will have Vital Signs Within Expected Range (Tonny Grayson RN) Status: Ongoing (Tonny Grayson RN) State: Risk For (Tonny Grayson RN) Related To: Labor and Delivery Process (Tonny Grayson RN) Goal(s): Patient will Remain Free from Injury (Tonny Grayson RN) Interventions: Monitoring as per Hospital Protocol; Assess Neurological Status; Perform Risk Assessment of Patients with Induction and ; Perform Fall Risk Assessment and Prevention per Hospital Protocol; Perform DVT Risk Assessment and Prophylaxis per Hospital Protocol; Ensure that Oxygen, Suction, and Resuscitation Medications and Equipment are Readily Available; Confirm Patient ID Prior to Procedure(s) and Medication Administration per Hospital Policy (Tonny Grayson RN) Outcome: Successful Fall Risk Prevention (Tonny Grayson RN) Status: Ongoing (Tonny Grayson RN) Outcome: Patient will Deliver Infant without Adverse Sequela (Tonny Grayson RN) Status: Ongoing (Tonny Grayson RN) Outcome: Patient's Neurological Status will Remain Stable (Tonny Grayson RN) Status: Ongoing (Tonny Grayson RN) State: Risk For (Tonny Grayson RN) Related To: Vaginal Delivery; Invasive Procedures (Tonny Grayson RN) Goal(s): Patient will Maintain Optimal Skin Integrity, Free of Breakdown, Injury or Infection (Tonny Grayson RN) Interventions: Complete Screening for Pressure Ulcer Risk and Initiate Protocol per Hospital Policy; Monitor Site of Skin Impairment for Color Changes, Redness, Swelling, Warmth, Pain or Other Signs of Infection; Encourage and Assist with Position Changes; Monitor Patient's Mobility Status; Provide Adequate Nutrition and Fluids; Teach Patient Appropriate Hygienic Care; Teach Patient/Family Skin Care Management (Tonny Grayson RN) Outcome: Patient will not have Evidence of Injury Such as Skin Breakdown, Scrapes, Cuts, or Bruising (Tonny Grayson RN) Status: Ongoing (Tonny Grayson RN) Outcome: Patient will Report Any Altered Sensation or Pain at Site of Skin Impairment (Tonny Grayson RN) Status: Ongoing (Tonny Grayson RN) Outcome: Patients Incisions and Wounds will be without Signs or Symptoms of Infection (Tonny Grayson RN) Status: Ongoing (Tonny Grayson RN) Outcome: Patient will Demonstrate Understanding of Plan to Heal Skin and Prevent Reinjury and Verbalize Risk Factors (Tonny Grayson RN) Status: Ongoing (Tonny Grayson RN)
[2016-03-05 07:41] LABS: MEAN CORPUSCULAR HEMOGLOBIN 27.7 pg (27.0-33.4); MEAN CORPUSCULAR HGB CONC 31.4 g/dL (32.0-36.0); MEAN CORPUSCULAR VOLUME 88 fl (80-97); RED BLOOD COUNT 3.97 10^6/uL (3.72-5.28); RED CELL DISTRIBUTION WIDTH 14.5 % (11.5-14.0); WHITE BLOOD COUNT 12.7 10^3/uL (4.0-10.5)
[2016-03-05] MEDS: DOCUSATE SODIUM 100 MG CAPSULE PO SCH ×2 (10:57→17:05)
[2016-03-05] MEDS: FERROUS SULFATE 325 MG TABLET PO SCH ×2 (10:57→17:05)
[2016-03-05] MEDS: FAMOTIDINE 20 MG TABLET PO SCH ×2 (10:58→23:03)
[2016-03-05] MEDS: PRENATAL VITAMIN W-O CA NO5/FE FUMARATE/FA CAPSULE PO SCH (10:58)
[2016-03-05] MEDS: SENNOSIDES/DOCUSATE 8.6-50 MG 1 EACH TABLET PO SCH (10:58)
[2016-03-06] MEDS: IBUPROFEN 800 MG TABLET PO SCH (05:29)
--- NOTE | 2016-03-06 06:04 | L&D General Admission ---
General Admit Datetime Report Generated by CPN: 03/06/2016 06:00 INFORMATION Patient Age: 25 (11/07/2015 16:59:QS system process) EDC: 03/04/2016 00:00 (11/07/2015 17:09:Chester Burk RN) : 2 (11/07/2015 17:09:Chester Burk RN) Para: 1 (02/28/2016 21:37:Tabitha Rothman RN) Term: 1 (11/07/2015 17:09:hCester Burk RN) : 0 (11/07/2015 17:09:Chester Burk RN) Spontaneous Abortions: 0 (11/07/2015 17:09:Chester Burk RN) Induced Abortions: 0 (11/07/2015 17:09:Chester Burk RN) Livin (11/07/2015 17:09:Chester Burk RN) Cesareans: 0 (11/07/2015 17:09:Chester Burk RN) VBACs: 0 (11/07/2015 17:09:Chester Burk RN) Ectopic: 0 (11/07/2015 17:09:Chester Burk RN) Multiple Births: 0 (11/07/2015 17:09:Chester Burk RN) Baby, Number in Womb: 1 (02/28/2016 21:37:Tabitha Rothman RN) CARE Primary Designer/Writer: [facility] Department (11/07/2015 17:09:Chester Burk RN) Adequate Care: Yes (11/07/2015 17:09:Winifred Will RN) Height (in): 60 (03/04/2016 09:42:QS system process) ALLERGIES Medication Allergy: No (11/07/2015 17:09:Chester Burk RN) Medication Allergies: No Known Allergies (03/04/2016) (03/04/2016 09:41:QS system process) Latex Allergy: No Latex Allergies (11/07/2015 17:09:Arlen Otero RN) Food Allergies: None (11/07/2015 17:09:Winifred iWll RN) Environmental Allergies: None (11/07/2015 17:09:Winifred Will RN) COMMUNICATION Primary Language: Saudi Arabian (11/07/2015 17:09:Chester Burk RN) Medical Tx Preferred Language: Saudi Arabian; Castilian (11/07/2015 17:09:Chester Burk RN) Cameroonian Communication Ability: 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, 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 (11/07/2015 17:09:Chester Burk RN) Communication Barrier(s): Language barrier; Hearing deficit (11/07/2015 17:09:Arlen Otero RN) DEMOGRAPHICS Address: [place] [address] (11/07/2015 16:59:QS system process) Zipcode: [id number] (11/07/2015 16:59:QS system process) Home (11/07/2015 16:59:QS system process) SSN: [id number] (11/07/2015 16:59:QS system process) Next of Kin Name: ELIN CLAROS (11/07/2015 16:59:QS system process) Next of Kin (11/07/2015 16:59:QS system process) Next of Kin Relationship: SPO (11/07/2015 16:59:QS system process) Date of : 1990 (11/07/2015 16:59:QS system process) Marital Status: Single (11/07/2015 16:59:QS system process) Sex: Female (11/07/2015 16:59:QS system process) Race: Other (11/07/2015 16:59:QS system process) Ethnicity: or (11/07/2015 16:59:QS system process) Yazidi: Other (11/07/2015 16:59:QS system process) DRUG AND ALCOHOL USE Alcohol: No (11/07/2015 17:09:Winifred Will RN) Cigarettes: Never Smoker. [id number] (11/07/2015 17:09:Winifred Will RN) Marijuana: No (11/07/2015 17:09:Winifred Will RN) Cocaine: No (11/07/2015 17:09:Winifred Will RN) Other Illicit Drugs: No (11/07/2015 17:09:Winifred Will RN) VACCINE HISTORY Influenza Vaccine: Yes (11/07/2015 17:09:Gia Houston RN) Pneumococcal Vaccine: No (Annotations: Data stored by N on behalf of user) (11/07/2015 17:09:Racheal Zimmerman RN) Tetanus Vaccine: Yes (11/07/2015 17:09:Gia Houston RN) Tdap Vaccine: Yes (11/07/2015 17:09:Gia Houston RN) Hepatitis B Vaccine: No (11/07/2015 17:09:Gia Houston RN) Deck Supervisor: [facility] (11/07/2015 17:09:Gia Houston RN) Feeding Preference: Both (11/07/2015 17:09:Gia Houston RN) Benefit of Breast Feed Discussed: Yes (11/07/2015 17:09:Gia Houston RN) Circumcision: No (11/07/2015 17:09:Gia Houston RN) Tubal Ligation: No (11/07/2015 17:09:Gia Houston RN) Tubal Authorization Signed: N/A (11/07/2015 17:09:Gia Houston RN) Consent: N/A (11/07/2015 17:09:Gia Houston RN) Consent Signed: N/A (11/07/2015 17:09:Gia Houston RN) Pain Management Plans: Natural; Medications (11/07/2015 17:09:Gia Houston RN) Plans for Labor and Delivery: None (11/07/2015 17:09:Gia Houston RN) Support Person: Markel (11/07/2015 17:09:Gia Houston RN) Support Person Relationship: (11/07/2015 17:09:Gia Houston RN) Cultural/Spritual Practice: No (11/07/2015 17:09:Gia Houston RN) Spir/Cult Dietary Needs: No (11/07/2015 17:09:Gia Houston RN) LIVING SITUATION/DISCHARGE PLAN Living Arrangements: House (11/07/2015 17:09:Gia Houston RN) Adequate Access to:: Electric; Heat; Refrigeration; Plumbing/Running water; Phone; Transportation (11/07/2015 17:09:Gia Houston RN) WIC Program: No (11/07/2015 17:09:Gia Houston RN) Discharge Silk Screen Operator Person: Markel (11/07/2015 17:09:Gia Houston RN) Person to Help after Discharge: Markel (11/07/2015 17:09:Gia Houston RN) Currently Using Commun Resources: No (11/07/2015 17:09:Gia Houston RN) Outside Agency/Glass Breaker: N/A (11/07/2015 17:09:Gia Houston RN) Car Seat for Discharge: Yes (11/07/2015 17:09:Gia Houston RN) Adoption Requested: Yes (11/07/2015 17:09:Gia Houston RN) Pt Contact w/infant Post : N/A (11/07/2015 17:09:Gia Houston RN) LABS Blood Type: O Positive (11/07/2015 17:09:Lindsay Camarena RN) Antibody Screen: negative (11/07/2015 17:09:Lindsay Camarena RN) Hemoglobin: 11.0 L (03/05/2016 07:32:QS system process) Hematocrit: 35.0 L (03/05/2016 07:32:QS system process) MCV: 88 (03/05/2016 07:32:QS system process) Group Beta Strep: Negative (Annotations: Data stored by [facility] on behalf of user) (11/07/2015 17:09:Arlen Otero RN) Gonorrhea: Negative (11/07/2015 17:09:Lindsay Camarena RN) Chlamydia: Negative (11/07/2015 17:09:Lindsay Camarena RN) HIV Results: nonreactive (11/07/2015 17:09:Lindsay Camarena RN) Hepatitis B: Negative (11/07/2015 17:09:Lindsay Camarena RN) Rubella: Immune (11/07/2015 17:09:Lindsay Camarena RN) Varicella: Non Susceptible (11/07/2015 17:09:Lindsay Camarena RN) Other Lab Procedures/Results: pos GBS in urine-treat (11/07/2015 17:09:Lindsay Camarena RN) OB/PREVIOUS HISTORY Previous Procedures: Ultrasound (11/07/2015 17:09:Winifred Will RN) Current Procedures: Ultrasound (11/07/2015 17:09:Winifred Will RN) History of Previous : No (11/07/2015 17:09:Winifred Will RN) History of Gestational Diabetes: No (11/07/2015 17:09:Winifred Will RN) History of PIH: No (11/07/2015 17:09:Winifred Will RN) History of Incompetent Cervix: No (11/07/2015 17:09:Winifred Will RN) History of Placenta Previa/Abrup: No (11/07/2015 17:09:Winifred Will RN) History of Macrosomia: No (11/07/2015 17:09:Winifred Will RN) History of IUGR: No (11/07/2015 17:09:Winifred Will RN) History of Hemorrhage: No (11/07/2015 17:09:Winifred Will RN) History of Loss/Stillborn: No (11/07/2015 17:09:Winifred Will RN) History of : No (11/07/2015 17:09:Winifred Will RN) History of D (Rh) Sensitization: No (11/07/2015 17:09:Winifred Will RN) History Recurrent Loss/Stillborn: No (11/07/2015 17:09:Winifred Will RN) History Depression/PP Depression: No (11/07/2015 17:09:Winifred Will RN) History of Uterine Anomaly/JENNIFFER: No (11/07/2015 17:09:Winifred Will RN) History of Infertility: No (11/07/2015 17:09:Winifred Will RN) History of ART Treatment: No (11/07/2015 17:09:Winifred Will RN) History of JENNIFFER: No (11/07/2015 17:09:Winifred Will RN) Comments Obstetrical History: G1 - 05/2009 - at 38wks, 3.249kg (in [place]) G2 - current (11/07/2015 17:09:Gia Houston RN) MEDICAL HISTORY Med Hx Diabetes: No (11/07/2015 17:09:Winifred Will RN) Med Hx Hypertension: No (11/07/2015 17:09:Winifred Will RN) Med Hx Heart Disease: No (11/07/2015 17:09:Winifred Will RN) Med Hx Autoimmune Disorder: No (11/07/2015 17:09:Winifred Will RN) Med Hx Kidney Disease/UTI: No (11/07/2015 17:09:Winifred Will RN) Med Hx Neurologic/Epilepsy: No (11/07/2015 17:09:Winifred Will RN) Med Hx Psychiatric Disorders: No (11/07/2015 17:09:Winifred Will RN) Med Hx Hepatitis/Liver Disease: No (11/07/2015 17:09:Winifred Will RN) Med Hx Varicosities/Phlebitis: No (11/07/2015 17:09:Winifred Will RN) Med Hx Thyroid Dysfunction: No (11/07/2015 17:09:Winifred Will RN) Med Hx Trauma/Violence: No (11/07/2015 17:09:Winifred Will RN) Med Hx Blood Transfusion: No (11/07/2015 17:09:Winifred Will RN) Med Hx Pulmonary (Asthma,TB): No (11/07/2015 17:09:Winifred Will RN) Med Hx Breast: No (11/07/2015 17:09:Winifred Will RN) Med Hx ASSIGNMENT EDITOR Surgery: No (11/07/2015 17:09:Winifred Will RN) Med Hx Hospitalization/Surgery: Yes (11/07/2015 17:09:Gia Houston RN) Med Hx Anesthetic Complications: No (11/07/2015 17:09:Winifred Will RN) Med Hx Abnormal Pap Smear: No (11/07/2015 17:09:Winifred Will RN) Other Medical Diseases: No (11/07/2015 17:09:Winifred Will RN) Med Hx Significant Family Hx: No (11/07/2015 17:09:Winifred Will RN) Details of Med/Surg Hx: Hospitalized for first (11/07/2015 17:09:Gia Houston RN) INFECTIOUS HISTORY Inf Hx Gonorrhea: No (11/07/2015 17:09:Winifred Will RN) Inf Hx Chlamydia: No (11/07/2015 17:09:Winifred Will RN) Inf Hx Syphilis: No (11/07/2015 17:09:Winifred Will RN) Inf Hx HIV/AIDS: No (11/07/2015 17:09:Winifred Will RN) Inf Hx Human Papilloma Virus: No (11/07/2015 17:09:Winifred Will RN) Inf Hx Pt/Partner Genital Herpes: No (11/07/2015 17:09:Winifred Will RN) Inf Hx Tuberculosis/Exposure: No (11/07/2015 17:09:Winifred Will RN) Inf Hx Hepatitis B,C: No (11/07/2015 17:09:Winifred Will RN) Inf Hx Rash or Viral Illness: No (11/07/2015 17:09:Winifred Will RN) GENETIC HISTORY Gen Hx Age >=35 at DANK: No (11/07/2015 17:09:Winifred Will RN) Gen Hx Thalassemia: No (11/07/2015 17:09:Winifred Will RN) Gen Hx Congenital Heart Defect: No (11/07/2015 17:09:Winifred Will RN) Gen Hx Neural Tube Defect: No (11/07/2015 17:09:Winifred Will RN) Gen Hx Down's Syndrome: No (11/07/2015 17:09:Winifred Will RN) Gen Hx Davey-Sachs: No (11/07/2015 17:09:Winifred Will RN) Gen Hx Tami: No (11/07/2015 17:09:Winifred Will RN) Gen Hx Familial Dysautonomia: No (11/07/2015 17:09:Winifred Will RN) Gen Hx Sickle Cell Disease/Trait: No (11/07/2015 17:09:Winifred Will RN) Gen Hx Hemophilia/Blood Disorder: No (11/07/2015 17:09:Winifred Will RN) Gen Hx Muscular Dystrophy: No (11/07/2015 17:09:Winifred Will RN) Gen Hx Cystic Fibrosis: No (11/07/2015 17:09:Winifred Will RN) Gen Hx Huntingtons Chorea: No (11/07/2015 17:09:Winifred Will RN) Gen Hx Mental Retardation/Autism: No (11/07/2015 17:09:Winifred Will RN) Gen Hx Tested for Fragile X: No (11/07/2015 17:09:Winifred Will RN) Gen Hx Other Inher/Chromosomal: No (11/07/2015 17:09:Winifred Will RN) Gen Hx Maternal Metabolic DO: No (11/07/2015 17:09:Winifred Will RN) Gen Hx Pt Father or FOB Defect: No (11/07/2015 17:09:Winifred Will RN) Gen Hx Other Genetic History: No (11/07/2015 17:09:Winifred Will RN) Gen Hx Drugs/Meds since LMP: Yes (11/07/2015 17:09:Gia Houston RN) Gen Hx Medications: pnv, tums, tylenol (11/07/2015 17:09:Gia Houston RN)
--- NOTE | 2016-03-06 06:04 | L&D Current Admission ---
Current Admit Datetime Report Generated by CPN: 03/06/2016 06:00 ADMISSION INFORMATION Current Admit Date/Time: 03/04/2016 09:40 (03/04/2016 10:26:Arlen Otero RN) Reason for Admission: Onset of Labor; Rupture of Membranes (03/04/2016 10:26:Arlen Otero RN) Chief Complaint: Contractions; Suspected Rupture of Membranes (03/04/2016 10:26:Arlen Otero RN) Meds During -Oth: Denies (03/04/2016 10:26:Arlen Otero RN) EGA per Dates: 40.0 (03/04/2016 10:26:QS system process) Method of Arrival: Wheelchair (03/04/2016 10:26:Arlen Otero RN) Admitted From: Home (03/04/2016 10:26:Arlen Otero RN) Reason for Induction: Not Applicable (03/04/2016 10:26:Arlen Otero RN) Records Available: Yes (03/04/2016 10:26:Arlen Otero RN) General Admission Information: Reviewed (03/04/2016 10:26:Arlen Otero RN) General Admission Reviewed By: Arlen Otero RN (03/04/2016 10:26:Arlen Otero RN) BELONGINGS/ADVANCED DIRECTIVES Valuables/Personal Effects: Purse/Wallet; Cell Phone; Jewelry (03/04/2016 10:26:Arlen Otero RN) Other Belongings: See [facility] belongings form (03/04/2016 10:26:Arlen Otero RN) Disposition of Belongings: Kept with Patient (03/04/2016 10:26:Arlen Otero RN) Advance Direct for Healthcare: No, and Wants No Information (03/04/2016 10:26:Arlen Otero RN) Durable Power of Automotive Specialty Technician: No (03/04/2016 10:26:Arlen Otero RN) Living Will: No (03/04/2016 10:26:Arlen Otero RN) Organ Donor: No (03/04/2016 10:26:Arlen Otero RN) Pt Rights Information Given: Yes (03/04/2016 10:26:Arlen Otero RN) Pt Understands Pt Rights: Yes (03/04/2016 10:26:Arlen Otero RN) LEARNING ASSESSMENT Knowledge Level: Understands L_D Process; Understands Diagnosis (03/04/2016 10:26:Arlen Otero RN) Barriers to Learning: Communication Barrier (03/04/2016 10:26:Arlen Otero RN) Learning Readiness: Motivated (03/04/2016 10:26:Arlen Otero RN) Learns Best By: 1 to 1 Instruction; Reading (03/04/2016 10:26:Arlen Otero RN) Learning Needs: Labor and Delivery Process; Pain Management; Symptoms to Report; Treatment Plan; Medication; Diagnosis; Nutrition; Equipment; Care; Community Resources (03/04/2016 10:26:Arlen Otero RN) Learning Assessment Comments: Patient is wolof speaking; Rigoti on unit (03/04/2016 10:26:Arlen Otero RN) DOMESTIC VIOLANCE SCREENING Dom Viol Threatened/Hurt: No (03/04/2016 10:26:Arlen Otero RN) Hx of Abuse/Neglect past 2yrs: No (03/04/2016 10:26:Arlne Otero RN) Feel Unsafe Going Home: No (03/04/2016 10:26:Arlen Otero RN) Addt'l Observ Indicating Abuse: No (03/04/2016 10:26:Arlen Otero RN) Reason Unable to Complete Screen: N/A, Screen Completed (03/04/2016 10:26:Arlen Otero RN) Considered Personal Harm/Suicide: No (03/04/2016 10:26:Arlen Otero RN) NUTRITIONAL/FUNCTIONAL SCREENING Problem with Appetite >5 Days: No (03/04/2016 10:26:Arlen Otero RN) Chew/Swallow Difficulties: No (03/04/2016 10:26:Arlen Otero RN) Inappropriate Wt Gain/Loss: No (03/04/2016 10:26:Arlen Otero RN) Presence Skin Breakdown/Ulcer: No (03/04/2016 10:26:Arlen Otero RN) Special Diet: No (03/04/2016 10:26:Arlen Otero RN) Pt Requests Bid Manager Visit: No (03/04/2016 10:26:Arlen Otreo RN) Hx of Any of the Following?: N/A (03/04/2016 10:26:Arlen Otero RN) New Diagnosis of: N/A (03/04/2016 10:26:Arlen Otero RN) Requires Assist w/Ambulation: No (03/04/2016 10:26:Arlen Otero RN) Uses Assist Device to Ambulate: No (03/04/2016 10:26:Arlen Otero RN) Pt Requires Help w/ADL's: No (03/04/2016 10:26:Arlen Otero RN)
[2016-03-06 09:04] VITALS: BP 121/64
[2016-03-06] MEDS: FERROUS SULFATE 325 MG TABLET PO SCH (10:31)
[2016-03-06] MEDS: PRENATAL VITAMIN W-O CA NO5/FE FUMARATE/FA CAPSULE PO SCH (10:32)
[2016-03-06] MEDS: DOCUSATE SODIUM 100 MG CAPSULE PO SCH (10:32)
[2016-03-06] MEDS: SENNOSIDES/DOCUSATE 8.6-50 MG 1 EACH TABLET PO SCH (10:32)
[2016-03-06] MEDS: FAMOTIDINE 20 MG TABLET PO SCH (10:32)
--- NOTE | 2016-03-06 12:36 | PDOC DISCHARGE SUMMARY ---
Discharge Summary-OB Discharge Date: 03/06/16 - Final Diagnosis (1) Normal vaginal delivery Is this a current diagnosis for this admission?: Yes - Discharge Medication Home Medications: No Home Medications 03/04/16 Reason(s) for Admission: Onset of Labor Procedures: None Intrapartum Procedure(s): Spontaneous Vaginal Delivery Complication(s): Laceration-Labial, Laceration-Periurethral Laceration-Degree: 1st - Data Baby 1 Male at 1 minute: 7 at 5 minutes: 9 Weight: 3840 kg Home with Mother: Yes - Diagnosis Test Laboratory: Temp Pulse Resp BP Pulse Ox 97.8 F 63 18 121/64 97 03/06/16 08:21 03/06/16 08:21 03/06/16 08:21 03/06/16 08:21 03/06/16 08:21 03/04/16 03/04/16 03/05/16 09:50 13:40 07:32 RBC 4.67 3.97 Hgb 12.9 11.0 L Hct 41.3 35.0 L Urine Opiates Screen NEGATIVE - Discharge information/Instructions Discharge Activity: Activity As Tolerated Discharge Diet: Regular Disposition: HOME, SELF-CARE Follow up with: [facility] in: 4
--- NOTE | 2016-03-07 06:05 | L&D General Admission ---
General Admit Datetime Report Generated by CPN: 03/07/2016 06:00 INFORMATION Patient Age: 25 (11/07/2015 16:59:QS system process) EDC: 03/04/2016 00:00 (11/07/2015 17:09:Chester Burk RN) : 2 (11/07/2015 17:09:Chester Burk RN) Para: 1 (02/28/2016 21:37:Tabitha Rothman RN) Term: 1 (11/07/2015 17:09:Chester Burk RN) : 0 (11/07/2015 17:09:Chester Burk RN) Spontaneous Abortions: 0 (11/07/2015 17:09:Chester Burk RN) Induced Abortions: 0 (11/07/2015 17:09:Chester Burk RN) Livin (11/07/2015 17:09:Chester Burk RN) Cesareans: 0 (11/07/2015 17:09:Chester Burk RN) VBACs: 0 (11/07/2015 17:09:Chester Burk RN) Ectopic: 0 (11/07/2015 17:09:Chester Burk RN) Multiple Births: 0 (11/07/2015 17:09:Chester Burk RN) Baby, Number in Womb: 1 (02/28/2016 21:37:Tabitha Rothman RN) CARE Primary Analytics Lead: [facility] Department (11/07/2015 17:09:Chester Burk RN) Adequate Care: Yes (11/07/2015 17:09:Winifred Will RN) Height (in): 60 (03/04/2016 09:42:QS system process) ALLERGIES Medication Allergy: No (11/07/2015 17:09:Chester Burk RN) Medication Allergies: No Known Allergies (03/04/2016) (03/04/2016 09:41:QS system process) Latex Allergy: No Latex Allergies (11/07/2015 17:09:Arlen Otero RN) Food Allergies: None (11/07/2015 17:09:Winifred Will RN) Environmental Allergies: None (11/07/2015 17:09:Winifred Will RN) COMMUNICATION Primary Language: French (11/07/2015 17:09:Chester Burk RN) Medical Tx Preferred Language: French; Castilian (11/07/2015 17:09:Chester Burk RN) Grenadian Communication Ability: 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, 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 (11/07/2015 17:09:Chester Burk RN) Communication Barrier(s): Language barrier; Hearing deficit (11/07/2015 17:09:Arlen Otero RN) DEMOGRAPHICS Address: [place] [address] (11/07/2015 16:59:QS system process) Zipcode: [phone] (11/07/2015 16:59:QS system process) Home (11/07/2015 16:59:QS system process) SSN: [id number] (11/07/2015 16:59:QS system process) Next of Kin Name: ELIN CLAROS (11/07/2015 16:59:QS system process) Next of Kin (11/07/2015 16:59:QS system process) Next of Kin Relationship: SPO (11/07/2015 16:59:QS system process) Date of : 1990 (11/07/2015 16:59:QS system process) Marital Status: Single (11/07/2015 16:59:QS system process) Sex: Female (11/07/2015 16:59:QS system process) Race: Other (11/07/2015 16:59:QS system process) Ethnicity: or (11/07/2015 16:59:QS system process) Faith: Other (11/07/2015 16:59:QS system process) DRUG AND ALCOHOL USE Alcohol: No (11/07/2015 17:09:Winifred Will RN) Cigarettes: Never Smoker. 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 Jobber: [facility] (11/07/2015 17:09:Gia Houston RN) Feeding Preference: Both (11/07/2015 17:09:Gia Houston RN) Benefit of Breast Feed Discussed: Yes (11/07/2015 17:09:Gia Houston RN) Circumcision: No (11/07/2015 17:09:Gia Houston RN) Tubal Ligation: No (11/07/2015 17:09:Gai Houston RN) Tubal Authorization Signed: N/A (11/07/2015 17:09:Gia Houston RN) Consent: N/A (11/07/2015 17:09:Gia Houston RN) Consent Signed: N/A (11/07/2015 17:09:Gia Houston RN) Pain Management Plans: Natural; Medications (11/07/2015 17:09:Gia Houston RN) Plans for Labor and Delivery: None (11/07/2015 17:09:Gia Houston RN) Support Person: Markel (11/07/2015 17:09:Gia Houston RN) Support Person Relationship: (11/07/2015 17:09:Gia Houston RN) Cultural/Spritual Practice: No (11/07/2015 17:09:Gia Houston RN) Spir/Cult Dietary Needs: No (11/07/2015 17:09:Gia Houston RN) LIVING SITUATION/DISCHARGE PLAN Living Arrangements: House (11/07/2015 17:09:Gia Houston RN) Adequate Access to:: Electric; Heat; Refrigeration; Plumbing/Running water; Phone; Transportation (11/07/2015 17:09:Gia Houston RN) WIC Program: No (11/07/2015 17:09:Gia Houston RN) Discharge Garment Mender Person: Markel (11/07/2015 17:09:Gia Houston RN) Person to Help after Discharge: Markel (11/07/2015 17:09:Gia Houston RN) Currently Using Commun Resources: No (11/07/2015 17:09:Gia Houston RN) Outside Agency/Field Spec: N/A (11/07/2015 17:09:Gia Houston RN) Car Seat for Discharge: Yes (11/07/2015 17:09:Gia Houston RN) Adoption Requested: Yes (11/07/2015 17:09:Gia Houston RN) Pt Contact w/infant Post : N/A (11/07/2015 17:09:Gia Houston RN) LABS Blood Type: O Positive (11/07/2015 17:09:Lindsay Camarena RN) Antibody Screen: negative (11/07/2015 17:09:Lindsay Camarena RN) Hemoglobin: 11.0 L (03/05/2016 07:32:QS system process) Hematocrit: 35.0 L (03/05/2016 07:32:QS system process) MCV: 88 (03/05/2016 07:32:QS system process) Group Beta Strep: Negative (Annotations: Data stored by [facility] on behalf of user) (11/07/2015 17:09:Arlen Otero RN) Gonorrhea: Negative (11/07/2015 17:09:Lindsay Camarena RN) Chlamydia: Negative (11/07/2015 17:09:Lindsay Camarena RN) HIV Results: nonreactive (11/07/2015 17:09:Lindsay Camarena RN) Hepatitis B: Negative (11/07/2015 17:09:Lindsay Camarena RN) Rubella: Immune (11/07/2015 17:09:Lindsay Camarena RN) Varicella: Non Susceptible (11/07/2015 17:09:Lindsay Camarena RN) Other Lab Procedures/Results: pos GBS in urine-treat (11/07/2015 17:09:Lindsay Camarena RN) OB/PREVIOUS HISTORY Previous Procedures: Ultrasound (11/07/2015 17:09:Winifred Will RN) Current Procedures: Ultrasound (11/07/2015 17:09:Winifred Will RN) History of Previous : No (11/07/2015 17:09:Winifred Will RN) History of Gestational Diabetes: No (11/07/2015 17:09:Winifred Will RN) History of PIH: No (11/07/2015 17:09:Winifred Will RN) History of Incompetent Cervix: No (11/07/2015 17:09:Winifred Will RN) History of Placenta Previa/Abrup: No (11/07/2015 17:09:Winifred Will RN) History of Macrosomia: No (11/07/2015 17:09:Winifred Will RN) History of IUGR: No (11/07/2015 17:09:Winifred Will RN) History of Hemorrhage: No (11/07/2015 17:09:Winifred Will RN) History of Loss/Stillborn: No (11/07/2015 17:09:Winifred Will RN) History of : No (11/07/2015 17:09:Winifred Will RN) History of D (Rh) Sensitization: No (11/07/2015 17:09:Winifred Will RN) History Recurrent Loss/Stillborn: No (11/07/2015 17:09:Winifred Will RN) History Depression/PP Depression: No (11/07/2015 17:09:Winifred Will RN) History of Uterine Anomaly/JENNIFFER: No (11/07/2015 17:09:Winifred Will RN) History of Infertility: No (11/07/2015 17:09:Winifred Will RN) History of ART Treatment: No (11/07/2015 17:09:Winifred Will RN) History of JENNIFFER: No (11/07/2015 17:09:Winifred Will RN) Comments Obstetrical History: G1 - 05/2009 - at 38wks, 3.249kg (in [place]) G2 - current (11/07/2015 17:09:Gia Houston RN) MEDICAL HISTORY Med Hx Diabetes: No (11/07/2015 17:09:Winifred Will RN) Med Hx Hypertension: No (11/07/2015 17:09:Winifred Will RN) Med Hx Heart Disease: No (11/07/2015 17:09:Winifred Wlil RN) Med Hx Autoimmune Disorder: No (11/07/2015 17:09:Winifred Wlil RN) Med Hx Kidney Disease/UTI: No (11/07/2015 17:09:Winifred Will RN) Med Hx Neurologic/Epilepsy: No (11/07/2015 17:09:Winifred Will RN) Med Hx Psychiatric Disorders: No (11/07/2015 17:09:Winifred Will RN) Med Hx Hepatitis/Liver Disease: No (11/07/2015 17:09:Winifred Will RN) Med Hx Varicosities/Phlebitis: No (11/07/2015 17:09:Winifred Will RN) Med Hx Thyroid Dysfunction: No (11/07/2015 17:09:Winifred Will RN) Med Hx Trauma/Violence: No (11/07/2015 17:09:Winifred Will RN) Med Hx Blood Transfusion: No (11/07/2015 17:09:Winifred Will RN) Med Hx Pulmonary (Asthma,TB): No (11/07/2015 17:09:Winifred Will RN) Med Hx Breast: No (11/07/2015 17:09:Winifred Will RN) Med Hx DRIVER SALES Surgery: No (11/07/2015 17:09:Winifred Will RN) Med Hx Hospitalization/Surgery: Yes (11/07/2015 17:09:Gia Houston RN) Med Hx Anesthetic Complications: No (11/07/2015 17:09:Winifred Will RN) Med Hx Abnormal Pap Smear: No (11/07/2015 17:09:Winifred Will RN) Other Medical Diseases: No (11/07/2015 17:09:Winifred Will RN) Med Hx Significant Family Hx: No (11/07/2015 17:09:Winifred Will RN) Details of Med/Surg Hx: Hospitalized for first (11/07/2015 17:09:Gia Houston RN) INFECTIOUS HISTORY Inf Hx Gonorrhea: No (11/07/2015 17:09:Winifred Will RN) Inf Hx Chlamydia: No (11/07/2015 17:09:Winifred Will RN) Inf Hx Syphilis: No (11/07/2015 17:09:Winifred Will RN) Inf Hx HIV/AIDS: No (11/07/2015 17:09:Winifred Will RN) Inf Hx Human Papilloma Virus: No (11/07/2015 17:09:Winifred Will RN) Inf Hx Pt/Partner Genital Herpes: No (11/07/2015 17:09:Winifred Will RN) Inf Hx Tuberculosis/Exposure: No (11/07/2015 17:09:Winifred Will RN) Inf Hx Hepatitis B,C: No (11/07/2015 17:09:Winifred Will RN) Inf Hx Rash or Viral Illness: No (11/07/2015 17:09:Winifred Will RN) GENETIC HISTORY Gen Hx Age >=35 at DANK: No (11/07/2015 17:09:Winifred Will RN) Gen Hx Thalassemia: No (11/07/2015 17:09:Winifred Will RN) Gen Hx Congenital Heart Defect: No (11/07/2015 17:09:Winifred Will RN) Gen Hx Neural Tube Defect: No (11/07/2015 17:09:Winifred Will RN) Gen Hx Down's Syndrome: No (11/07/2015 17:09:Winifred Will RN) Gen Hx Davey-Sachs: No (11/07/2015 17:09:Winifred Will RN) Gen Hx Tami: No (11/07/2015 17:09:Winifred Will RN) Gen Hx Familial Dysautonomia: No (11/07/2015 17:09:Winifred Will RN) Gen Hx Sickle Cell Disease/Trait: No (11/07/2015 17:09:Winifred Will RN) Gen Hx Hemophilia/Blood Disorder: No (11/07/2015 17:09:Winifred Will RN) Gen Hx Muscular Dystrophy: No (11/07/2015 17:09:Winifred Will RN) Gen Hx Cystic Fibrosis: No (11/07/2015 17:09:Winifred Will RN) Gen Hx Huntingtons Chorea: No (11/07/2015 17:09:Winifred Will RN) Gen Hx Mental Retardation/Autism: No (11/07/2015 17:09:Winifred Will RN) Gen Hx Tested for Fragile X: No (11/07/2015 17:09:Winifred Will RN) Gen Hx Other Inher/Chromosomal: No (11/07/2015 17:09:Winifred Will RN) Gen Hx Maternal Metabolic DO: No (11/07/2015 17:09:Winifred Will RN) Gen Hx Pt Father or FOB Defect: No (11/07/2015 17:09:Winifred Will RN) Gen Hx Other Genetic History: No (11/07/2015 17:09:Winifred Will RN) Gen Hx Drugs/Meds since LMP: Yes (11/07/2015 17:09:Gia Houston RN) Gen Hx Medications: pnv, tums, tylenol (11/07/2015 17:09:Gia Houston RN)
--- NOTE | 2016-03-07 06:05 | L&D Current Admission ---
Current Admit Datetime Report Generated by CPN: 03/07/2016 06:00 ADMISSION INFORMATION Current Admit Date/Time: 03/04/2016 09:40 (03/04/2016 10:26:Arlen Otero RN) Reason for Admission: Onset of Labor; Rupture of Membranes (03/04/2016 10:26:Arlen Otero RN) Chief Complaint: Contractions; Suspected Rupture of Membranes (03/04/2016 10:26:Arlen Otero RN) Meds During -Oth: Denies (03/04/2016 10:26:Arlen Otero RN) EGA per Dates: 40.0 (03/04/2016 10:26:QS system process) Method of Arrival: Wheelchair (03/04/2016 10:26:Arlen Otero RN) Admitted From: Home (03/04/2016 10:26:Arlen Otero RN) Reason for Induction: Not Applicable (03/04/2016 10:26:Arlen Otero RN) Records Available: Yes (03/04/2016 10:26:Arlen Otero RN) General Admission Information: Reviewed (03/04/2016 10:26:Arlen Otero RN) General Admission Reviewed By: Arlen Otero RN (03/04/2016 10:26:Arlen Otero RN) BELONGINGS/ADVANCED DIRECTIVES Valuables/Personal Effects: Purse/Wallet; Cell Phone; Jewelry (03/04/2016 10:26:Arlen Otero RN) Other Belongings: See [facility] belongings form (03/04/2016 10:26:Arlen Otero RN) Disposition of Belongings: Kept with Patient (03/04/2016 10:26:Arlen Otero RN) Advance Direct for Healthcare: No, and Wants No Information (03/04/2016 10:26:Arlen Otero RN) Durable Power of Senior Sql Server Developer: No (03/04/2016 10:26:Arlen Otero RN) Living Will: No (03/04/2016 10:26:Arlen Otero RN) Organ Donor: No (03/04/2016 10:26:Arlen Otero RN) Pt Rights Information Given: Yes (03/04/2016 10:26:Arlen Otero RN) Pt Understands Pt Rights: Yes (03/04/2016 10:26:Arlen Otero RN) LEARNING ASSESSMENT Knowledge Level: Understands L_D Process; Understands Diagnosis (03/04/2016 10:26:Arlen Otero RN) Barriers to Learning: Communication Barrier (03/04/2016 10:26:Arlen Otero RN) Learning Readiness: Motivated (03/04/2016 10:26:Arlen Otero RN) Learns Best By: 1 to 1 Instruction; Reading (03/04/2016 10:26:Arlen Otero RN) Learning Needs: Labor and Delivery Process; Pain Management; Symptoms to Report; Treatment Plan; Medication; Diagnosis; Nutrition; Equipment; Care; Community Resources (03/04/2016 10:26:Arlen Otero RN) Learning Assessment Comments: Patient is luxembourgish speaking; Rigoti on unit (03/04/2016 10:26:Arlen Otero RN) DOMESTIC VIOLANCE SCREENING Dom Viol Threatened/Hurt: No (03/04/2016 10:26:Arlen Otero RN) Hx of Abuse/Neglect past 2yrs: No (03/04/2016 10:26:Arlen Otero RN) Feel Unsafe Going Home: No (03/04/2016 10:26:Arlen Otero RN) Addt'l Observ Indicating Abuse: No (03/04/2016 10:26:Arlen Otero RN) Reason Unable to Complete Screen: N/A, Screen Completed (03/04/2016 10:26:Arlen Otero RN) Considered Personal Harm/Suicide: No (03/04/2016 10:26:Arlen Otero RN) NUTRITIONAL/FUNCTIONAL SCREENING Problem with Appetite >5 Days: No (03/04/2016 10:26:Arlen Otero RN) Chew/Swallow Difficulties: No (03/04/2016 10:26:Arlen Otero RN) Inappropriate Wt Gain/Loss: No (03/04/2016 10:26:Arlen Otero RN) Presence Skin Breakdown/Ulcer: No (03/04/2016 10:26:Arlen Otero RN) Special Diet: No (03/04/2016 10:26:Arlen Otero RN) Pt Requests Investigation Division Sergeant Visit: No (03/04/2016 10:26:Arlen Otero RN) Hx of Any of the Following?: N/A (03/04/2016 10:26:Arlen Otero RN) New Diagnosis of: N/A (03/04/2016 10:26:Arlen Otero RN) Requires Assist w/Ambulation: No (03/04/2016 10:26:Arlen Otero RN) Uses Assist Device to Ambulate: No (03/04/2016 10:26:Arlen Otero RN) Pt Requires Help w/ADL's: No (03/04/2016 10:26:Arlen Otero RN)
--- NOTE | 2016-03-08 06:04 | L&D General Admission ---
General Admit Datetime Report Generated by CPN: 03/08/2016 06:00 INFORMATION Patient Age: 25 (11/07/2015 16:59:QS system process) EDC: 03/04/2016 00:00 (11/07/2015 17:09:Chester Burk RN) : 2 (11/07/2015 17:09:Chester Burk RN) Para: 1 (02/28/2016 21:37:Tabitha Rothman RN) Term: 1 (11/07/2015 17:09:Chester Burk RN) : 0 (11/07/2015 17:09:Chester Burk RN) Spontaneous Abortions: 0 (11/07/2015 17:09:Chester Burk RN) Induced Abortions: 0 (11/07/2015 17:09:Chester Burk RN) Livin (11/07/2015 17:09:Chester Burk RN) Cesareans: 0 (11/07/2015 17:09:Chester Burk RN) VBACs: 0 (11/07/2015 17:09:Chester Burk RN) Ectopic: 0 (11/07/2015 17:09:Chester Burk RN) Multiple Births: 0 (11/07/2015 17:09:Chester Burk RN) Baby, Number in Womb: 1 (02/28/2016 21:37:Tabitha Rothman RN) CARE Primary Mutuel Clerk: [facility] Department (11/07/2015 17:09:Chester Burk RN) Adequate Care: Yes (11/07/2015 17:09:Winifred Will RN) Height (in): 60 (03/04/2016 09:42:QS system process) ALLERGIES Medication Allergy: No (11/07/2015 17:09:Chester Burk RN) Medication Allergies: No Known Allergies (03/04/2016) (03/04/2016 09:41:QS system process) Latex Allergy: No Latex Allergies (11/07/2015 17:09:Arlen Otero RN) Food Allergies: None (11/07/2015 17:09:Winifred Will RN) Environmental Allergies: None (11/07/2015 17:09:Winifred Will RN) COMMUNICATION Primary Language: Omani (11/07/2015 17:09:Chester Burk RN) Medical Tx Preferred Language: Omani; Castilian (11/07/2015 17:09:Chester Burk RN) Bahraini Communication Ability: 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, DYE TANK TENDER needed (11/07/2015 17:09:Chester Burk RN) Communication Barrier(s): Language barrier; Hearing deficit (11/07/2015 17:09:Arlen Otero RN) DEMOGRAPHICS Address: [place] [address] (11/07/2015 16:59:QS system process) Zipcode: [id number] (11/07/2015 16:59:QS system process) Home (11/07/2015 16:59:QS system process) SSN: [id number] (11/07/2015 16:59:QS system process) Next of Kin Name: ELIN CLAROS (11/07/2015 16:59:QS system process) Next of Kin (11/07/2015 16:59:QS system process) Next of Kin Relationship: SPO (11/07/2015 16:59:QS system process) Date of : 1990 (11/07/2015 16:59:QS system process) Marital Status: Single (11/07/2015 16:59:QS system process) Sex: Female (11/07/2015 16:59:QS system process) Race: Other (11/07/2015 16:59:QS system process) Ethnicity: or (11/07/2015 16:59:QS system process) Samaritan: Other (11/07/2015 16:59:QS system process) DRUG AND ALCOHOL USE Alcohol: No (11/07/2015 17:09:Winifred Will RN) Cigarettes: Never Smoker. 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 Truck Driver: [facility] (11/07/2015 17:09:Gia Houston RN) Feeding Preference: Both (11/07/2015 17:09:Gia Houston RN) Benefit of Breast Feed Discussed: Yes (11/07/2015 17:09:Gia Houston RN) Circumcision: No (11/07/2015 17:09:Gia Houston RN) Tubal Ligation: No (11/07/2015 17:09:Gia Houston RN) Tubal Authorization Signed: N/A (11/07/2015 17:09:Gia Houston RN) Consent: N/A (11/07/2015 17:09:Gia Houston RN) Consent Signed: N/A (11/07/2015 17:09:Gia Houston RN) Pain Management Plans: Natural; Medications (11/07/2015 17:09:Gia Houston RN) Plans for Labor and Delivery: None (11/07/2015 17:09:Gia Houston RN) Support Person: Markel (11/07/2015 17:09:Gia Houston RN) Support Person Relationship: (11/07/2015 17:09:Gia Houston RN) Cultural/Spritual Practice: No (11/07/2015 17:09:Gia Houston RN) Spir/Cult Dietary Needs: No (11/07/2015 17:09:Gia Houston RN) LIVING SITUATION/DISCHARGE PLAN Living Arrangements: House (11/07/2015 17:09:Gia Houston RN) Adequate Access to:: Electric; Heat; Refrigeration; Plumbing/Running water; Phone; Transportation (11/07/2015 17:09:Gia Houston RN) WIC Program: No (11/07/2015 17:09:Gia Houston RN) Discharge Sewer Contractor Person: Markel (11/07/2015 17:09:Gia Houston RN) Person to Help after Discharge: Markel (11/07/2015 17:09:Gia Houston RN) Currently Using Commun Resources: No (11/07/2015 17:09:Gia Houston RN) Outside Agency/Glaze Wiper: N/A (11/07/2015 17:09:Gia Houston RN) Car Seat for Discharge: Yes (11/07/2015 17:09:Gia Houston RN) Adoption Requested: Yes (11/07/2015 17:09:Gia Houston RN) Pt Contact w/infant Post : N/A (11/07/2015 17:09:Gia Houston RN) LABS Blood Type: O Positive (11/07/2015 17:09:Lindsay Camarena RN) Antibody Screen: negative (11/07/2015 17:09:Lindsay Camarena RN) Hemoglobin: 11.0 L (03/05/2016 07:32:QS system process) Hematocrit: 35.0 L (03/05/2016 07:32:QS system process) MCV: 88 (03/05/2016 07:32:QS system process) Group Beta Strep: Negative (Annotations: Data stored by [facility] on behalf of user) (11/07/2015 17:09:Arlen Otero RN) Gonorrhea: Negative (11/07/2015 17:09:Lindsay Camarena RN) Chlamydia: Negative (11/07/2015 17:09:Lindsay Camarnea RN) HIV Results: nonreactive (11/07/2015 17:09:Lindsay Camarean RN) Hepatitis B: Negative (11/07/2015 17:09:Lindsay Camarena RN) Rubella: Immune (11/07/2015 17:09:Lindsay Camarena RN) Varicella: Non Susceptible (11/07/2015 17:09:Lindasy Camarena RN) Other Lab Procedures/Results: pos GBS in urine-treat (11/07/2015 17:09:Lindsay Camarena RN) OB/PREVIOUS HISTORY Previous Procedures: Ultrasound (11/07/2015 17:09:Winifred Will RN) Current Procedures: Ultrasound (11/07/2015 17:09:Winifred Will RN) History of Previous : No (11/07/2015 17:09:Winifred Will RN) History of Gestational Diabetes: No (11/07/2015 17:09:Winifred Will RN) History of PIH: No (11/07/2015 17:09:Winifred Will RN) History of Incompetent Cervix: No (11/07/2015 17:09:Winifred Will RN) History of Placenta Previa/Abrup: No (11/07/2015 17:09:Winifred Will RN) History of Macrosomia: No (11/07/2015 17:09:Winifred Will RN) History of IUGR: No (11/07/2015 17:09:Winifred Will RN) History of Hemorrhage: No (11/07/2015 17:09:Winifred Will RN) History of Loss/Stillborn: No (11/07/2015 17:09:Winifred Will RN) History of : No (11/07/2015 17:09:Winifred Will RN) History of D (Rh) Sensitization: No (11/07/2015 17:09:Winifred Will RN) History Recurrent Loss/Stillborn: No (11/07/2015 17:09:Winifred Will RN) History Depression/PP Depression: No (11/07/2015 17:09:Winifred Will RN) History of Uterine Anomaly/JENNIFFER: No (11/07/2015 17:09:Winifred Will RN) History of Infertility: No (11/07/2015 17:09:Winifred Will RN) History of ART Treatment: No (11/07/2015 17:09:Winifred Will RN) History of JENNIFFER: No (11/07/2015 17:09:Winifred Will RN) Comments Obstetrical History: G1 - 05/2009 - at 38wks, 3.249kg (in [place]) G2 - current (11/07/2015 17:09:Gia Houston RN) MEDICAL HISTORY Med Hx Diabetes: No (11/07/2015 17:09:Winifred Will RN) Med Hx Hypertension: No (11/07/2015 17:09:Winifred Will RN) Med Hx Heart Disease: No (11/07/2015 17:09:Winifred Will RN) Med Hx Autoimmune Disorder: No (11/07/2015 17:09:Winifred Will RN) Med Hx Kidney Disease/UTI: No (11/07/2015 17:09:Winifred Will RN) Med Hx Neurologic/Epilepsy: No (11/07/2015 17:09:Winifred Will RN) Med Hx Psychiatric Disorders: No (11/07/2015 17:09:Winifred Will RN) Med Hx Hepatitis/Liver Disease: No (11/07/2015 17:09:Winifred Wlil RN) Med Hx Varicosities/Phlebitis: No (11/07/2015 17:09:Winifred Will RN) Med Hx Thyroid Dysfunction: No (11/07/2015 17:09:Winifred Will RN) Med Hx Trauma/Violence: No (11/07/2015 17:09:Winifred Will RN) Med Hx Blood Transfusion: No (11/07/2015 17:09:Winifred Will RN) Med Hx Pulmonary (Asthma,TB): No (11/07/2015 17:09:Winifred Will RN) Med Hx Breast: No (11/07/2015 17:09:Winifred Will RN) Med Hx OCCUPATIONAL THERAPY PROFESSOR Surgery: No (11/07/2015 17:09:Winifred Will RN) Med Hx Hospitalization/Surgery: Yes (11/07/2015 17:09:Gia Houston RN) Med Hx Anesthetic Complications: No (11/07/2015 17:09:Winifred Will RN) Med Hx Abnormal Pap Smear: No (11/07/2015 17:09:Winifred Will RN) Other Medical Diseases: No (11/07/2015 17:09:Winifred Will RN) Med Hx Significant Family Hx: No (11/07/2015 17:09:Winifred Will RN) Details of Med/Surg Hx: Hospitalized for first (11/07/2015 17:09:Gia Houston RN) INFECTIOUS HISTORY Inf Hx Gonorrhea: No (11/07/2015 17:09:Winifred Will RN) Inf Hx Chlamydia: No (11/07/2015 17:09:Winifred Will RN) Inf Hx Syphilis: No (11/07/2015 17:09:Winifred Will RN) Inf Hx HIV/AIDS: No (11/07/2015 17:09:Winifred Will RN) Inf Hx Human Papilloma Virus: No (11/07/2015 17:09:Winifred Will RN) Inf Hx Pt/Partner Genital Herpes: No (11/07/2015 17:09:Winifred Will RN) Inf Hx Tuberculosis/Exposure: No (11/07/2015 17:09:Winifred Will RN) Inf Hx Hepatitis B,C: No (11/07/2015 17:09:Winifred Will RN) Inf Hx Rash or Viral Illness: No (11/07/2015 17:09:Winifred Will RN) GENETIC HISTORY Gen Hx Age >=35 at DANK: No (11/07/2015 17:09:Winifred Will RN) Gen Hx Thalassemia: No (11/07/2015 17:09:Winifred Will RN) Gen Hx Congenital Heart Defect: No (11/07/2015 17:09:Winifred Will RN) Gen Hx Neural Tube Defect: No (11/07/2015 17:09:Winifred Will RN) Gen Hx Down's Syndrome: No (11/07/2015 17:09:Winifred Will RN) Gen Hx Davey-Sachs: No (11/07/2015 17:09:Winifred Will RN) Gen Hx Tami: No (11/07/2015 17:09:Winifred Will RN) Gen Hx Familial Dysautonomia: No (11/07/2015 17:09:Winifred Will RN) Gen Hx Sickle Cell Disease/Trait: No (11/07/2015 17:09:Winifred Will RN) Gen Hx Hemophilia/Blood Disorder: No (11/07/2015 17:09:Winifred Will RN) Gen Hx Muscular Dystrophy: No (11/07/2015 17:09:Winifred Will RN) Gen Hx Cystic Fibrosis: No (11/07/2015 17:09:Winifred Will RN) Gen Hx Huntingtons Chorea: No (11/07/2015 17:09:Winifred Will RN) Gen Hx Mental Retardation/Autism: No (11/07/2015 17:09:Winifred Will RN) Gen Hx Tested for Fragile X: No (11/07/2015 17:09:Winifred Will RN) Gen Hx Other Inher/Chromosomal: No (11/07/2015 17:09:Winifred Will RN) Gen Hx Maternal Metabolic DO: No (11/07/2015 17:09:Winifred Will RN) Gen Hx Pt Father or FOB Defect: No (11/07/2015 17:09:Winifred Will RN) Gen Hx Other Genetic History: No (11/07/2015 17:09:Winifred Will RN) Gen Hx Drugs/Meds since LMP: Yes (11/07/2015 17:09:Gia Houston RN) Gen Hx Medications: pnv, tums, tylenol (11/07/2015 17:09:Gia Houston RN)
--- NOTE | 2016-03-08 06:04 | L&D Current Admission ---
Current Admit Datetime Report Generated by CPN: 03/08/2016 06:00 ADMISSION INFORMATION Current Admit Date/Time: 03/04/2016 09:40 (03/04/2016 10:26:Arlen Otero RN) Reason for Admission: Onset of Labor; Rupture of Membranes (03/04/2016 10:26:Arlen Otero RN) Chief Complaint: Contractions; Suspected Rupture of Membranes (03/04/2016 10:26:Arlen Otero RN) Meds During -Oth: Denies (03/04/2016 10:26:Arlen Otero RN) EGA per Dates: 40.0 (03/04/2016 10:26:QS system process) Method of Arrival: Wheelchair (03/04/2016 10:26:Arlen Otero RN) Admitted From: Home (03/04/2016 10:26:Arlen Otero RN) Reason for Induction: Not Applicable (03/04/2016 10:26:Arlen Otero RN) Records Available: Yes (03/04/2016 10:26:Arlen Otero RN) General Admission Information: Reviewed (03/04/2016 10:26:Arlen Otero RN) General Admission Reviewed By: Arlen Otero RN (03/04/2016 10:26:Arlen Otero RN) BELONGINGS/ADVANCED DIRECTIVES Valuables/Personal Effects: Purse/Wallet; Cell Phone; Jewelry (03/04/2016 10:26:Arlen Otero RN) Other Belongings: See [facility] belongings form (03/04/2016 10:26:Arlen Otero RN) Disposition of Belongings: Kept with Patient (03/04/2016 10:26:Arlen Otero RN) Advance Direct for Healthcare: No, and Wants No Information (03/04/2016 10:26:Arlen Otero RN) Durable Power of [place]: No (03/04/2016 10:26:Arlen Otero RN) Living Will: No (03/04/2016 10:26:Arlen Otero RN) Organ Donor: No (03/04/2016 10:26:Arlen Otero RN) Pt Rights Information Given: Yes (03/04/2016 10:26:Arlen Otero RN) Pt Understands Pt Rights: Yes (03/04/2016 10:26:Arlen Otero RN) LEARNING ASSESSMENT Knowledge Level: Understands L_D Process; Understands Diagnosis (03/04/2016 10:26:Arlen Otero RN) Barriers to Learning: Communication Barrier (03/04/2016 10:26:Arlen Otero RN) Learning Readiness: Motivated (03/04/2016 10:26:Arlen Otero RN) Learns Best By: 1 to 1 Instruction; Reading (03/04/2016 10:26:Arlen Otero RN) Learning Needs: Labor and Delivery Process; Pain Management; Symptoms to Report; Treatment Plan; Medication; Diagnosis; Nutrition; Equipment; Care; Community Resources (03/04/2016 10:26:Arlen Otero RN) Learning Assessment Comments: Patient is french speaking; Rigoti on unit (03/04/2016 10:26:Arlen Otero RN) DOMESTIC VIOLANCE SCREENING Dom Viol Threatened/Hurt: No (03/04/2016 10:26:Arlen Otero RN) Hx of Abuse/Neglect past 2yrs: No (03/04/2016 10:26:Arlen Otero RN) Feel Unsafe Going Home: No (03/04/2016 10:26:Arlen Otero RN) Addt'l Observ Indicating Abuse: No (03/04/2016 10:26:Arlen Otero RN) Reason Unable to Complete Screen: N/A, Screen Completed (03/04/2016 10:26:Arlen Otero RN) Considered Personal Harm/Suicide: No (03/04/2016 10:26:Arlen Otero RN) NUTRITIONAL/FUNCTIONAL SCREENING Problem with Appetite >5 Days: No (03/04/2016 10:26:Arlen Otero RN) Chew/Swallow Difficulties: No (03/04/2016 10:26:Arlen Otero RN) Inappropriate Wt Gain/Loss: No (03/04/2016 10:26:Arlen Otero RN) Presence Skin Breakdown/Ulcer: No (03/04/2016 10:26:Arlen Otero RN) Special Diet: No (03/04/2016 10:26:Arlen Otero RN) Pt Requests Forest And Conservation Worker Visit: No (03/04/2016 10:26:Arlen Otero RN) Hx of Any of the Following?: N/A (03/04/2016 10:26:Arlen Otero RN) New Diagnosis of: N/A (03/04/2016 10:26:Arlen Otero RN) Requires Assist w/Ambulation: No (03/04/2016 10:26:Arlen Otero RN) Uses Assist Device to Ambulate: No (03/04/2016 10:26:Arlen Otero RN) Pt Requires Help w/ADL's: No (03/04/2016 10:26:Arlen Otero RN)
--- NOTE | 2016-03-09 06:05 | L&D General Admission ---
General Admit Datetime Report Generated by CPN: 03/09/2016 06:00 INFORMATION Patient Age: 25 (11/07/2015 16:59:QS system process) EDC: 03/04/2016 00:00 (11/07/2015 17:09:Chester Burk RN) : 2 (11/07/2015 17:09:Chester Burk RN) Para: 1 (02/28/2016 21:37:Tabitha Rothman RN) Term: 1 (11/07/2015 17:09:Chester Burk RN) : 0 (11/07/2015 17:09:Chester Burk RN) Spontaneous Abortions: 0 (11/07/2015 17:09:Chester Burk RN) Induced Abortions: 0 (11/07/2015 17:09:Chester Burk RN) Livin (11/07/2015 17:09:Chester Burk RN) Cesareans: 0 (11/07/2015 17:09:Chester Burk RN) VBACs: 0 (11/07/2015 17:09:Chester Burk RN) Ectopic: 0 (11/07/2015 17:09:Chester Burk RN) Multiple Births: 0 (11/07/2015 17:09:Chester Burk RN) Baby, Number in Womb: 1 (02/28/2016 21:37:Tabitha Rothman RN) CARE Primary Decision Science Analyst: [facility] (11/07/2015 17:09:Chester Burk RN) Adequate Care: Yes (11/07/2015 17:09:Winifred Will RN) Height (in): 60 (03/04/2016 09:42:QS system process) ALLERGIES Medication Allergy: No (11/07/2015 17:09:Chester Burk RN) Medication Allergies: No Known Allergies (03/04/2016) (03/04/2016 09:41:QS system process) Latex Allergy: No Latex Allergies (11/07/2015 17:09:Arlen Otero RN) Food Allergies: None (11/07/2015 17:09:Winifred Will RN) Environmental Allergies: None (11/07/2015 17:09:Winifred Will RN) COMMUNICATION Primary Language: Salvadorean (11/07/2015 17:09:Chester Burk RN) Medical Tx Preferred Language: Salvadorean; Castilian (11/07/2015 17:09:Chester Burk RN) Tunisian Communication Ability: 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, CERTIFIED NOVELL ADMINISTRATOR needed (11/07/2015 17:09:Chester Burk RN) Communication Barrier(s): Language barrier; Hearing deficit (11/07/2015 17:09:Arlen Otero RN) DEMOGRAPHICS Address: [place] [address] (11/07/2015 16:59:QS system process) Zipcode: [id number] (11/07/2015 16:59:QS system process) Home (11/07/2015 16:59:QS system process) SSN: [id number] (11/07/2015 16:59:QS system process) Next of Kin Name: ELIN CLAROS (11/07/2015 16:59:QS system process) Next of Kin (11/07/2015 16:59:QS system process) Next of Kin Relationship: SPO (11/07/2015 16:59:QS system process) Date of : 1990 (11/07/2015 16:59:QS system process) Marital Status: Single (11/07/2015 16:59:QS system process) Sex: Female (11/07/2015 16:59:QS system process) Race: Other (11/07/2015 16:59:QS system process) Ethnicity: or (11/07/2015 16:59:QS system process) Synagogue: Other (11/07/2015 16:59:QS system process) DRUG AND ALCOHOL USE Alcohol: No (11/07/2015 17:09:Winifred Will RN) Cigarettes: Never Smoker. [id number] (11/07/2015 17:09:Winifred Will RN) Marijuana: No (11/07/2015 17:09:Winifred Will RN) Cocaine: No (11/07/2015 17:09:Winifred Will RN) Other Illicit Drugs: No (11/07/2015 17:09:Winifred Will RN) VACCINE HISTORY Influenza Vaccine: Yes (11/07/2015 17:09:iGa [place] RN) Pneumococcal Vaccine: No (Annotations: Data stored by N on behalf of user) (11/07/2015 17:09:Racheal Zimmerman RN) Tetanus Vaccine: Yes (11/07/2015 17:09:Gia [place] RN) Tdap Vaccine: Yes (11/07/2015 17:09:Gia [place] RN) Hepatitis B Vaccine: No (11/07/2015 17:09:Gia [place] RN) Lip Of Shank Cutter: [facility] (11/07/2015 17:09:Gia [place] RN) Feeding Preference: Both (11/07/2015 17:09:Gia [place] RN) Benefit of Breast Feed Discussed: Yes (11/07/2015 17:09:Gia [place] RN) Circumcision: No (11/07/2015 17:09:Gia [place] RN) Tubal Ligation: No (11/07/2015 17:09:Gia [place] RN) Tubal Authorization Signed: N/A (11/07/2015 17:09:Gia [place] RN) Consent: N/A (11/07/2015 17:09:Gia [place] RN) Consent Signed: N/A (11/07/2015 17:09:Gia [place] RN) Pain Management Plans: Natural; Medications (11/07/2015 17:09:Gia [place] RN) Plans for Labor and Delivery: None (11/07/2015 17:09:Gia [place] RN) Support Person: Markel (11/07/2015 17:09:Gia [place] RN) Support Person Relationship: (11/07/2015 17:09:Gia [place] RN) Cultural/Spritual Practice: No (11/07/2015 17:09:Gia [place] RN) Spir/Cult Dietary Needs: No (11/07/2015 17:09:Gia [place] RN) LIVING SITUATION/DISCHARGE PLAN Living Arrangements: House (11/07/2015 17:09:Gia [place] RN) Adequate Access to:: Electric; Heat; Refrigeration; Plumbing/Running water; Phone; Transportation (11/07/2015 17:09:Gia [place] RN) WIC Program: No (11/07/2015 17:09:Gia [place] RN) Discharge Plastics Heat Welder Person: Markel (11/07/2015 17:09:Gia [place] RN) Person to Help after Discharge: Markel (11/07/2015 17:09:Gia [place] RN) Currently Using Commun Resources: No (11/07/2015 17:09:Gia [place] RN) Outside Agency/Office Cleaner: N/A (11/07/2015 17:09:Gia [place] RN) Car Seat for Discharge: Yes (11/07/2015 17:09:Gia [place] RN) Adoption Requested: Yes (11/07/2015 17:09:Gia [place] RN) Pt Contact w/infant Post : N/A (11/07/2015 17:09:Gia [place] RN) LABS Blood Type: O Positive (11/07/2015 17:09:Lindsay Camarena RN) Antibody Screen: negative (11/07/2015 17:09:Lindsay Camarena RN) Hemoglobin: 11.0 L (03/05/2016 07:32:QS system process) Hematocrit: 35.0 L (03/05/2016 07:32:QS system process) MCV: 88 (03/05/2016 07:32:QS system process) Group Beta Strep: Negative (Annotations: Data stored by [facility] on behalf of user) (11/07/2015 17:09:Arlen Otero RN) Gonorrhea: Negative (11/07/2015 17:09:Lindsay Camarena RN) Chlamydia: Negative (11/07/2015 17:09:Lindsay Camarena RN) HIV Results: nonreactive (11/07/2015 17:09:Lindsay Camarena RN) Hepatitis B: Negative (11/07/2015 17:09:Lindsay Camarena RN) Rubella: Immune (11/07/2015 17:09:Lindsay Camarena RN) Varicella: Non Susceptible (11/07/2015 17:09:Lindsay Camarena RN) Other Lab Procedures/Results: pos GBS in urine-treat (11/07/2015 17:09:Lindsay Camarena RN) OB/PREVIOUS HISTORY Previous Procedures: Ultrasound (11/07/2015 17:09:Winifred Will RN) Current Procedures: Ultrasound (11/07/2015 17:09:Winifred Will RN) History of Previous : No (11/07/2015 17:09:Winifred Will RN) History of Gestational Diabetes: No (11/07/2015 17:09:Winifred Will RN) History of PIH: No (11/07/2015 17:09:Winifred Will RN) History of Incompetent Cervix: No (11/07/2015 17:09:Winifred Will RN) History of Placenta Previa/Abrup: No (11/07/2015 17:09:Winifred Will RN) History of Macrosomia: No (11/07/2015 17:09:Winifred Will RN) History of IUGR: No (11/07/2015 17:09:Winifred Will RN) History of Hemorrhage: No (11/07/2015 17:09:Winifred Will RN) History of Loss/Stillborn: No (11/07/2015 17:09:Winifred Will RN) History of : No (11/07/2015 17:09:Winifred Will RN) History of D (Rh) Sensitization: No (11/07/2015 17:09:Winifred iWll RN) History Recurrent Loss/Stillborn: No (11/07/2015 17:09:Winifred Will RN) History Depression/PP Depression: No (11/07/2015 17:09:Winifred Will RN) History of Uterine Anomaly/JENNIFFER: No (11/07/2015 17:09:Winifred Will RN) History of Infertility: No (11/07/2015 17:09:Winifred Will RN) History of ART Treatment: No (11/07/2015 17:09:Winifred Will RN) History of JENNIFFER: No (11/07/2015 17:09:Winifred Will RN) Comments Obstetrical History: G1 - 05/2009 - at 38wks, 3.249kg (in [place]) G2 - current (11/07/2015 17:09:Gia [place] RN) MEDICAL HISTORY Med Hx Diabetes: No (11/07/2015 17:09:Winifred Will RN) Med Hx Hypertension: No (11/07/2015 17:09:Winifred Will RN) Med Hx Heart Disease: No (11/07/2015 17:09:Winifred Will RN) Med Hx Autoimmune Disorder: No (11/07/2015 17:09:Winifred Will RN) Med Hx Kidney Disease/UTI: No (11/07/2015 17:09:Winifred Will RN) Med Hx Neurologic/Epilepsy: No (11/07/2015 17:09:Winifred Will RN) Med Hx Psychiatric Disorders: No (11/07/2015 17:09:Winifred Wlil RN) Med Hx Hepatitis/Liver Disease: No (11/07/2015 17:09:Winifred Will RN) Med Hx Varicosities/Phlebitis: No (11/07/2015 17:09:Winifred Will RN) Med Hx Thyroid Dysfunction: No (11/07/2015 17:09:Winifred Will RN) Med Hx Trauma/Violence: No (11/07/2015 17:09:Winifred Will RN) Med Hx Blood Transfusion: No (11/07/2015 17:09:Winifred Will RN) Med Hx Pulmonary (Asthma,TB): No (11/07/2015 17:09:Winifred Will RN) Med Hx Breast: No (11/07/2015 17:09:Winifred Will RN) Med Hx WHEEL AND PINION INSPECTOR Surgery: No (11/07/2015 17:09:Winifred Will RN) Med Hx Hospitalization/Surgery: Yes (11/07/2015 17:09:Gia [place] RN) Med Hx Anesthetic Complications: No (11/07/2015 17:09:Winifred Will RN) Med Hx Abnormal Pap Smear: No (11/07/2015 17:09:Winifred Will RN) Other Medical Diseases: No (11/07/2015 17:09:Winifred Will RN) Med Hx Significant Family Hx: No (11/07/2015 17:09:Winifred Will RN) Details of Med/Surg Hx: Hospitalized for first (11/07/2015 17:09:Gia [place] RN) INFECTIOUS HISTORY Inf Hx Gonorrhea: No (11/07/2015 17:09:Winifred Will RN) Inf Hx Chlamydia: No (11/07/2015 17:09:Winifred Will RN) Inf Hx Syphilis: No (11/07/2015 17:09:Winifred Will RN) Inf Hx HIV/AIDS: No (11/07/2015 17:09:Winifred Will RN) Inf Hx Human Papilloma Virus: No (11/07/2015 17:09:Winifred Will RN) Inf Hx Pt/Partner Genital Herpes: No (11/07/2015 17:09:Winifred Will RN) Inf Hx Tuberculosis/Exposure: No (11/07/2015 17:09:Winifred Will RN) Inf Hx Hepatitis B,C: No (11/07/2015 17:09:Winifred Will RN) Inf Hx Rash or Viral Illness: No (11/07/2015 17:09:Winifred Will RN) GENETIC HISTORY Gen Hx Age >=35 at DANK: No (11/07/2015 17:09:Winifred Will RN) Gen Hx Thalassemia: No (11/07/2015 17:09:Winifred Will RN) Gen Hx Congenital Heart Defect: No (11/07/2015 17:09:Winifred Will RN) Gen Hx Neural Tube Defect: No (11/07/2015 17:09:Winifred Will RN) Gen Hx Down's Syndrome: No (11/07/2015 17:09:Winifred Will RN) Gen Hx Davey-Sachs: No (11/07/2015 17:09:Winifred Will RN) Gen Hx Tami: No (11/07/2015 17:09:Wniifred Will RN) Gen Hx Familial Dysautonomia: No (11/07/2015 17:09:Winifred Will RN) Gen Hx Sickle Cell Disease/Trait: No (11/07/2015 17:09:Winifred Will RN) Gen Hx Hemophilia/Blood Disorder: No (11/07/2015 17:09:Winifred Will RN) Gen Hx Muscular Dystrophy: No (11/07/2015 17:09:Winifred Will RN) Gen Hx Cystic Fibrosis: No (11/07/2015 17:09:Winifred Will RN) Gen Hx Huntingtons Chorea: No (11/07/2015 17:09:Winifred Will RN) Gen Hx Mental Retardation/Autism: No (11/07/2015 17:09:Winifred Will RN) Gen Hx Tested for Fragile X: No (11/07/2015 17:09:Winifred Will RN) Gen Hx Other Inher/Chromosomal: No (11/07/2015 17:09:Winifred Will RN) Gen Hx Maternal Metabolic DO: No (11/07/2015 17:09:Winifred Will RN) Gen Hx Pt Father or FOB Defect: No (11/07/2015 17:09:Winifred Will RN) Gen Hx Other Genetic History: No (11/07/2015 17:09:Winifred Will RN) Gen Hx Drugs/Meds since LMP: Yes (11/07/2015 17:09:Gia [place] RN) Gen Hx Medications: pnv, tums, tylenol (11/07/2015 17:09:Gia [place] RN)
--- NOTE | 2016-03-09 06:05 | L&D Current Admission ---
Current Admit Datetime Report Generated by CPN: 03/09/2016 06:00 ADMISSION INFORMATION Current Admit Date/Time: 03/04/2016 09:40 (03/04/2016 10:26:Arlen Otero RN) Reason for Admission: Onset of Labor; Rupture of Membranes (03/04/2016 10:26:Arlen Otero RN) Chief Complaint: Contractions; Suspected Rupture of Membranes (03/04/2016 10:26:Arlen Otero RN) Meds During -Oth: Denies (03/04/2016 10:26:Arlen Otero RN) EGA per Dates: 40.0 (03/04/2016 10:26:QS system process) Method of Arrival: Wheelchair (03/04/2016 10:26:Arlen Otero RN) Admitted From: Home (03/04/2016 10:26:Arlen Otero RN) Reason for Induction: Not Applicable (03/04/2016 10:26:Arlne Otero RN) Records Available: Yes (03/04/2016 10:26:Arlen Otero RN) General Admission Information: Reviewed (03/04/2016 10:26:Arlen Otero RN) General Admission Reviewed By: Arlen Otero RN (03/04/2016 10:26:Arlen Otero RN) BELONGINGS/ADVANCED DIRECTIVES Valuables/Personal Effects: Purse/Wallet; Cell Phone; Jewelry (03/04/2016 10:26:Arlen Otero RN) Other Belongings: See [facility] belongings form (03/04/2016 10:26:Arlen Otero RN) Disposition of Belongings: Kept with Patient (03/04/2016 10:26:Arlen Otero RN) Advance Direct for Healthcare: No, and Wants No Information (03/04/2016 10:26:Arlen Otero RN) Durable Power of Sheet Ironworker: No (03/04/2016 10:26:Arlen Otero RN) Living Will: No (03/04/2016 10:26:Arlen Otero RN) Organ Donor: No (03/04/2016 10:26:Arlen Otero RN) Pt Rights Information Given: Yes (03/04/2016 10:26:Arlen Otero RN) Pt Understands Pt Rights: Yes (03/04/2016 10:26:Arlen Otero RN) LEARNING ASSESSMENT Knowledge Level: Understands L_D Process; Understands Diagnosis (03/04/2016 10:26:Arlen Otero RN) Barriers to Learning: Communication Barrier (03/04/2016 10:26:Arlen Otero RN) Learning Readiness: Motivated (03/04/2016 10:26:Arlen Otero RN) Learns Best By: 1 to 1 Instruction; Reading (03/04/2016 10:26:Arlen Otero RN) Learning Needs: Labor and Delivery Process; Pain Management; Symptoms to Report; Treatment Plan; Medication; Diagnosis; Nutrition; Equipment; Care; Community Resources (03/04/2016 10:26:Arlen Otero RN) Learning Assessment Comments: Patient is occitan speaking; Rigoti on unit (03/04/2016 10:26:Arlen Otero RN) DOMESTIC VIOLANCE SCREENING Dom Viol Threatened/Hurt: No (03/04/2016 10:26:Arlen Otero RN) Hx of Abuse/Neglect past 2yrs: No (03/04/2016 10:26:Arlen Otero RN) Feel Unsafe Going Home: No (03/04/2016 10:26:Arlen Otero RN) Addt'l Observ Indicating Abuse: No (03/04/2016 10:26:Arlen Otero RN) Reason Unable to Complete Screen: N/A, Screen Completed (03/04/2016 10:26:Arlen Otero RN) Considered Personal Harm/Suicide: No (03/04/2016 10:26:Arlen Otero RN) NUTRITIONAL/FUNCTIONAL SCREENING Problem with Appetite >5 Days: No (03/04/2016 10:26:Arlen Otero RN) Chew/Swallow Difficulties: No (03/04/2016 10:26:Arlen Otero RN) Inappropriate Wt Gain/Loss: No (03/04/2016 10:26:Arlen Otero RN) Presence Skin Breakdown/Ulcer: No (03/04/2016 10:26:Arlen Otero RN) Special Diet: No (03/04/2016 10:26:Arlen Otero RN) Pt Requests Supervisor Shipfitters Visit: No (03/04/2016 10:26:Arlen Otero RN) Hx of Any of the Following?: N/A (03/04/2016 10:26:Arlen Otero RN) New Diagnosis of: N/A (03/04/2016 10:26:Arlen Otero RN) Requires Assist w/Ambulation: No (03/04/2016 10:26:Arlen Otero RN) Uses Assist Device to Ambulate: No (03/04/2016 10:26:Arlen Otero RN) Pt Requires Help w/ADL's: No (03/04/2016 10:26:Arlen Otero RN)
--- NOTE | 2016-03-10 06:04 | L&D General Admission ---
General Admit Datetime Report Generated by CPN: 03/10/2016 06:00 INFORMATION Patient Age: 25 (11/07/2015 16:59:QS system process) EDC: 03/04/2016 00:00 (11/07/2015 17:09:Chester Burk RN) : 2 (11/07/2015 17:09:Chester Burk RN) Para: 1 (02/28/2016 21:37:Tabitha Rothman RN) Term: 1 (11/07/2015 17:09:Chester Burk RN) : 0 (11/07/2015 17:09:Chester Burk RN) Spontaneous Abortions: 0 (11/07/2015 17:09:Chester Burk RN) Induced Abortions: 0 (11/07/2015 17:09:Chester Burk RN) Livin (11/07/2015 17:09:Chester Burk RN) Cesareans: 0 (11/07/2015 17:09:Chester Burk RN) VBACs: 0 (11/07/2015 17:09:Chester Burk RN) Ectopic: 0 (11/07/2015 17:09:Chester Burk RN) Multiple Births: 0 (11/07/2015 17:09:Chester Burk RN) Baby, Number in Womb: 1 (02/28/2016 21:37:Tabitha Rothman RN) CARE Primary Set Off Press Operator: [facility] Department (11/07/2015 17:09:Chester Burk RN) Adequate Care: Yes (11/07/2015 17:09:Winifred Will RN) Height (in): 60 (03/04/2016 09:42:QS system process) ALLERGIES Medication Allergy: No (11/07/2015 17:09:Chester Burk RN) Medication Allergies: No Known Allergies (03/04/2016) (03/04/2016 09:41:QS system process) Latex Allergy: No Latex Allergies (11/07/2015 17:09:Arlen Otero RN) Food Allergies: None (11/07/2015 17:09:Winifred Will RN) Environmental Allergies: None (11/07/2015 17:09:Winifred Will RN) COMMUNICATION Primary Language: Malawian (11/07/2015 17:09:Chester Burk RN) Medical Tx Preferred Language: Malawian; Castilian (11/07/2015 17:09:Chester Burk RN) Dutch Communication Ability: 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, INSTALLATION SUPERVISOR needed (11/07/2015 17:09:Chester Burk RN) Communication Barrier(s): Language barrier; Hearing deficit (11/07/2015 17:09:Arlen Otero RN) DEMOGRAPHICS Address: [place] [address] (11/07/2015 16:59:QS system process) Zipcode: [id number] (11/07/2015 16:59:QS system process) Home (11/07/2015 16:59:QS system process) SSN: [id number] (11/07/2015 16:59:QS system process) Next of Kin Name: ELIN CLAROS (11/07/2015 16:59:QS system process) Next of Kin (11/07/2015 16:59:QS system process) Next of Kin Relationship: SPO (11/07/2015 16:59:QS system process) Date of : 1990 (11/07/2015 16:59:QS system process) Marital Status: Single (11/07/2015 16:59:QS system process) Sex: Female (11/07/2015 16:59:QS system process) Race: Other (11/07/2015 16:59:QS system process) Ethnicity: or (11/07/2015 16:59:QS system process) Scientology: Other (11/07/2015 16:59:QS system process) DRUG AND ALCOHOL USE Alcohol: No (11/07/2015 17:09:Winifred Will RN) Cigarettes: Never Smoker. [id number] (11/07/2015 17:09:Winifred Will RN) Marijuana: No (11/07/2015 17:09:Winifred Will RN) Cocaine: No (11/07/2015 17:09:Winifred Will RN) Other Illicit Drugs: No (11/07/2015 17:09:Winifred Will RN) VACCINE HISTORY Influenza Vaccine: Yes (11/07/2015 17:09:Gia Huoston RN) Pneumococcal Vaccine: No (Annotations: Data stored by N on behalf of user) (11/07/2015 17:09:Racheal Zimmerman RN) Tetanus Vaccine: Yes (11/07/2015 17:09:Gia Houston RN) Tdap Vaccine: Yes (11/07/2015 17:09:Gia Houston RN) Hepatitis B Vaccine: No (11/07/2015 17:09:Gia Houston RN) National Sales Manager: [facility] (11/07/2015 17:09:Gia Houston RN) Feeding Preference: Both (11/07/2015 17:09:Gia Houston RN) Benefit of Breast Feed Discussed: Yes (11/07/2015 17:09:Gia Houston RN) Circumcision: No (11/07/2015 17:09:Gia Houston RN) Tubal Ligation: No (11/07/2015 17:09:Gia Houston RN) Tubal Authorization Signed: N/A (11/07/2015 17:09:Gia Houston RN) Consent: N/A (11/07/2015 17:09:Gia Houston RN) Consent Signed: N/A (11/07/2015 17:09:Gia Houston RN) Pain Management Plans: Natural; Medications (11/07/2015 17:09:Gia Houston RN) Plans for Labor and Delivery: None (11/07/2015 17:09:Gia Houston RN) Support Person: Markel (11/07/2015 17:09:Gia Houston RN) Support Person Relationship: (11/07/2015 17:09:Gia Houston RN) Cultural/Spritual Practice: No (11/07/2015 17:09:Gia Houston RN) Spir/Cult Dietary Needs: No (11/07/2015 17:09:Gia Houston RN) LIVING SITUATION/DISCHARGE PLAN Living Arrangements: House (11/07/2015 17:09:Gia Houston RN) Adequate Access to:: Electric; Heat; Refrigeration; Plumbing/Running water; Phone; Transportation (11/07/2015 17:09:Gia Houston RN) WIC Program: No (11/07/2015 17:09:Gia Houston RN) Discharge Carpentry Supervisor Person: Markel (11/07/2015 17:09:Gia Houston RN) Person to Help after Discharge: Markel (11/07/2015 17:09:Gia Houston RN) Currently Using Commun Resources: No (11/07/2015 17:09:Gia Houston RN) Outside Agency/Weigh Tank Operator: N/A (11/07/2015 17:09:Gia Houston RN) Car Seat for Discharge: Yes (11/07/2015 17:09:Gia Houston RN) Adoption Requested: Yes (11/07/2015 17:09:Gia Houston RN) Pt Contact w/infant Post : N/A (11/07/2015 17:09:Gia Houston RN) LABS Blood Type: O Positive (11/07/2015 17:09:Lindsay Camarena RN) Antibody Screen: negative (11/07/2015 17:09:Lindsay Camarena RN) Hemoglobin: 11.0 L (03/05/2016 07:32:QS system process) Hematocrit: 35.0 L (03/05/2016 07:32:QS system process) MCV: 88 (03/05/2016 07:32:QS system process) Group Beta Strep: Negative (Annotations: Data stored by [facility] on behalf of user) (11/07/2015 17:09:Arlen Otero RN) Gonorrhea: Negative (11/07/2015 17:09:Lindsay Camarena RN) Chlamydia: Negative (11/07/2015 17:09:Lindsay Camarena RN) HIV Results: nonreactive (11/07/2015 17:09:Lindsay Camarena RN) Hepatitis B: Negative (11/07/2015 17:09:Lindsay Camarena RN) Rubella: Immune (11/07/2015 17:09:Lindsay Camarena RN) Varicella: Non Susceptible (11/07/2015 17:09:Lindsay Camarena RN) Other Lab Procedures/Results: pos GBS in urine-treat (11/07/2015 17:09:Lindsay Camarena RN) OB/PREVIOUS HISTORY Previous Procedures: Ultrasound (11/07/2015 17:09:Winifred Will RN) Current Procedures: Ultrasound (11/07/2015 17:09:Winifred Will RN) History of Previous : No (11/07/2015 17:09:Winifred Will RN) History of Gestational Diabetes: No (11/07/2015 17:09:Winifred Will RN) History of PIH: No (11/07/2015 17:09:Winifred Will RN) History of Incompetent Cervix: No (11/07/2015 17:09:Winifred Will RN) History of Placenta Previa/Abrup: No (11/07/2015 17:09:Winifred Will RN) History of Macrosomia: No (11/07/2015 17:09:Winifred Will RN) History of IUGR: No (11/07/2015 17:09:Winifred Will RN) History of Hemorrhage: No (11/07/2015 17:09:Winifred Will RN) History of Loss/Stillborn: No (11/07/2015 17:09:Winifred Will RN) History of : No (11/07/2015 17:09:Winifred Will RN) History of D (Rh) Sensitization: No (11/07/2015 17:09:Winifred Will RN) History Recurrent Loss/Stillborn: No (11/07/2015 17:09:Winifred Will RN) History Depression/PP Depression: No (11/07/2015 17:09:Winifred Will RN) History of Uterine Anomaly/JENNIFFER: No (11/07/2015 17:09:Winifred Will RN) History of Infertility: No (11/07/2015 17:09:Winifred Will RN) History of ART Treatment: No (11/07/2015 17:09:Winifred Will RN) History of JENNIFFER: No (11/07/2015 17:09:Winifred Will RN) Comments Obstetrical History: G1 - 05/2009 - at 38wks, 3.249kg (in [place]) G2 - current (11/07/2015 17:09:Gia Houston RN) MEDICAL HISTORY Med Hx Diabetes: No (11/07/2015 17:09:Winifred Will RN) Med Hx Hypertension: No (11/07/2015 17:09:Winifred Will RN) Med Hx Heart Disease: No (11/07/2015 17:09:Winifred Will RN) Med Hx Autoimmune Disorder: No (11/07/2015 17:09:Winifred Will RN) Med Hx Kidney Disease/UTI: No (11/07/2015 17:09:Winifred Will RN) Med Hx Neurologic/Epilepsy: No (11/07/2015 17:09:Winifred Will RN) Med Hx Psychiatric Disorders: No (11/07/2015 17:09:Winifred Will RN) Med Hx Hepatitis/Liver Disease: No (11/07/2015 17:09:Winifred Will RN) Med Hx Varicosities/Phlebitis: No (11/07/2015 17:09:Winifred Will RN) Med Hx Thyroid Dysfunction: No (11/07/2015 17:09:Winifred Will RN) Med Hx Trauma/Violence: No (11/07/2015 17:09:Winifred Will RN) Med Hx Blood Transfusion: No (11/07/2015 17:09:Winifred Will RN) Med Hx Pulmonary (Asthma,TB): No (11/07/2015 17:09:Winifred Will RN) Med Hx Breast: No (11/07/2015 17:09:Winifred Will RN) Med Hx MANAGER ELECTRONIC Surgery: No (11/07/2015 17:09:Winifred Will RN) Med Hx Hospitalization/Surgery: Yes (11/07/2015 17:09:Gia Houston RN) Med Hx Anesthetic Complications: No (11/07/2015 17:09:Winifred Will RN) Med Hx Abnormal Pap Smear: No (11/07/2015 17:09:Winifred Will RN) Other Medical Diseases: No (11/07/2015 17:09:Winifred Will RN) Med Hx Significant Family Hx: No (11/07/2015 17:09:Winifred Will RN) Details of Med/Surg Hx: Hospitalized for first (11/07/2015 17:09:Gia Houston RN) INFECTIOUS HISTORY Inf Hx Gonorrhea: No (11/07/2015 17:09:Winifred Will RN) Inf Hx Chlamydia: No (11/07/2015 17:09:Winifred Will RN) Inf Hx Syphilis: No (11/07/2015 17:09:Winifred Will RN) Inf Hx HIV/AIDS: No (11/07/2015 17:09:Winifred Will RN) Inf Hx Human Papilloma Virus: No (11/07/2015 17:09:Winifred Will RN) Inf Hx Pt/Partner Genital Herpes: No (11/07/2015 17:09:Winifred Will RN) Inf Hx Tuberculosis/Exposure: No (11/07/2015 17:09:Winifred Will RN) Inf Hx Hepatitis B,C: No (11/07/2015 17:09:Winifred Will RN) Inf Hx Rash or Viral Illness: No (11/07/2015 17:09:Winifred Will RN) GENETIC HISTORY Gen Hx Age >=35 at DANK: No (11/07/2015 17:09:Winifred Will RN) Gen Hx Thalassemia: No (11/07/2015 17:09:Winifred Will RN) Gen Hx Congenital Heart Defect: No (11/07/2015 17:09:Winifred Will RN) Gen Hx Neural Tube Defect: No (11/07/2015 17:09:Winifred Will RN) Gen Hx Down's Syndrome: No (11/07/2015 17:09:Winifred Will RN) Gen Hx Davey-Sachs: No (11/07/2015 17:09:Winifred Will RN) Gen Hx Tami: No (11/07/2015 17:09:Winifred Will RN) Gen Hx Familial Dysautonomia: No (11/07/2015 17:09:Winifred Will RN) Gen Hx Sickle Cell Disease/Trait: No (11/07/2015 17:09:Winifred Will RN) Gen Hx Hemophilia/Blood Disorder: No (11/07/2015 17:09:Winifred Will RN) Gen Hx Muscular Dystrophy: No (11/07/2015 17:09:Winifred Will RN) Gen Hx Cystic Fibrosis: No (11/07/2015 17:09:Winifred Will RN) Gen Hx Huntingtons Chorea: No (11/07/2015 17:09:Winifred Will RN) Gen Hx Mental Retardation/Autism: No (11/07/2015 17:09:Winifred Will RN) Gen Hx Tested for Fragile X: No (11/07/2015 17:09:Winifred Will RN) Gen Hx Other Inher/Chromosomal: No (11/07/2015 17:09:Winifred Will RN) Gen Hx Maternal Metabolic DO: No (11/07/2015 17:09:Winifred Will RN) Gen Hx Pt Father or FOB Defect: No (11/07/2015 17:09:Winifred Will RN) Gen Hx Other Genetic History: No (11/07/2015 17:09:Winifred Will RN) Gen Hx Drugs/Meds since LMP: Yes (11/07/2015 17:09:Gia Houston RN) Gen Hx Medications: pnv, tums, tylenol (11/07/2015 17:09:Gia Houston RN)
--- NOTE | 2016-03-10 06:04 | L&D Current Admission ---
Current Admit Datetime Report Generated by CPN: 03/10/2016 06:00 ADMISSION INFORMATION Current Admit Date/Time: 03/04/2016 09:40 (03/04/2016 10:26:Arlen Otero RN) Reason for Admission: Onset of Labor; Rupture of Membranes (03/04/2016 10:26:Arlen Otero RN) Chief Complaint: Contractions; Suspected Rupture of Membranes (03/04/2016 10:26:Arlen Otero RN) Meds During -Oth: Denies (03/04/2016 10:26:Arlen Otero RN) EGA per Dates: 40.0 (03/04/2016 10:26:QS system process) Method of Arrival: Wheelchair (03/04/2016 10:26:Arlen Otero RN) Admitted From: Home (03/04/2016 10:26:Arlen Otero RN) Reason for Induction: Not Applicable (03/04/2016 10:26:Arlen Otero RN) Records Available: Yes (03/04/2016 10:26:Arlen Otero RN) General Admission Information: Reviewed (03/04/2016 10:26:Arlen Otero RN) General Admission Reviewed By: Arlen Otero RN (03/04/2016 10:26:Arlen Otero RN) BELONGINGS/ADVANCED DIRECTIVES Valuables/Personal Effects: Purse/Wallet; Cell Phone; Jewelry (03/04/2016 10:26:Arlen Otero RN) Other Belongings: See [facility] belongings form (03/04/2016 10:26:Arlen Otero RN) Disposition of Belongings: Kept with Patient (03/04/2016 10:26:Arlen Otero RN) Advance Direct for Healthcare: No, and Wants No Information (03/04/2016 10:26:Arlen Otero RN) Durable Power of Cargo Operations Agent: No (03/04/2016 10:26:Arlen Otero RN) Living Will: No (03/04/2016 10:26:Arlen Otero RN) Organ Donor: No (03/04/2016 10:26:Arlen Otero RN) Pt Rights Information Given: Yes (03/04/2016 10:26:Arlen Otero RN) Pt Understands Pt Rights: Yes (03/04/2016 10:26:Arlen Otero RN) LEARNING ASSESSMENT Knowledge Level: Understands L_D Process; Understands Diagnosis (03/04/2016 10:26:Arlen Otero RN) Barriers to Learning: Communication Barrier (03/04/2016 10:26:Arlen Otero RN) Learning Readiness: Motivated (03/04/2016 10:26:Arlen Otero RN) Learns Best By: 1 to 1 Instruction; Reading (03/04/2016 10:26:Arlen Otero RN) Learning Needs: Labor and Delivery Process; Pain Management; Symptoms to Report; Treatment Plan; Medication; Diagnosis; Nutrition; Equipment; Care; Community Resources (03/04/2016 10:26:Arlen Otero RN) Learning Assessment Comments: Patient is turkish speaking; Rigoti on unit (03/04/2016 10:26:Arlen Otero RN) DOMESTIC VIOLANCE SCREENING Dom Viol Threatened/Hurt: No (03/04/2016 10:26:Arlen Otero RN) Hx of Abuse/Neglect past 2yrs: No (03/04/2016 10:26:Arlen Otero RN) Feel Unsafe Going Home: No (03/04/2016 10:26:Arlen Otero RN) Addt'l Observ Indicating Abuse: No (03/04/2016 10:26:Arlen Otero RN) Reason Unable to Complete Screen: N/A, Screen Completed (03/04/2016 10:26:Arlen Otero RN) Considered Personal Harm/Suicide: No (03/04/2016 10:26:Arlen Otero RN) NUTRITIONAL/FUNCTIONAL SCREENING Problem with Appetite >5 Days: No (03/04/2016 10:26:Arlen Otero RN) Chew/Swallow Difficulties: No (03/04/2016 10:26:Arlen Otero RN) Inappropriate Wt Gain/Loss: No (03/04/2016 10:26:Arlen Otero RN) Presence Skin Breakdown/Ulcer: No (03/04/2016 10:26:Arlen Otero RN) Special Diet: No (03/04/2016 10:26:Arlen Otero RN) Pt Requests Deli Worker Visit: No (03/04/2016 10:26:Arlen Otero RN) Hx of Any of the Following?: N/A (03/04/2016 10:26:Arlen Otero RN) New Diagnosis of: N/A (03/04/2016 10:26:Arlen Otero RN) Requires Assist w/Ambulation: No (03/04/2016 10:26:Arlen Otero RN) Uses Assist Device to Ambulate: No (03/04/2016 10:26:Arlen Otero RN) Pt Requires Help w/ADL's: No (03/04/2016 10:26:Arlen Otero RN)
--- NOTE | 2016-03-11 06:03 | L&D Current Admission ---
Current Admit Datetime Report Generated by CPN: 03/11/2016 06:00 ADMISSION INFORMATION Current Admit Date/Time: 03/04/2016 09:40 (03/04/2016 10:26:Arlen Otero RN) Reason for Admission: Onset of Labor; Rupture of Membranes (03/04/2016 10:26:Arlen Otero RN) Chief Complaint: Contractions; Suspected Rupture of Membranes (03/04/2016 10:26:Arlen Otero RN) Meds During -Oth: Denies (03/04/2016 10:26:Arlen Otero RN) EGA per Dates: 40.0 (03/04/2016 10:26:QS system process) Method of Arrival: Wheelchair (03/04/2016 10:26:Arlen Otero RN) Admitted From: Home (03/04/2016 10:26:Arlen Otero RN) Reason for Induction: Not Applicable (03/04/2016 10:26:Areln Otero RN) Records Available: Yes (03/04/2016 10:26:rAlen Otero RN) General Admission Information: Reviewed (03/04/2016 10:26:Arlen Otero RN) General Admission Reviewed By: Arlen Otero RN (03/04/2016 10:26:Arlen Otero RN) BELONGINGS/ADVANCED DIRECTIVES Valuables/Personal Effects: Purse/Wallet; Cell Phone; Jewelry (03/04/2016 10:26:Arlen Otero RN) Other Belongings: See [facility] belongings form (03/04/2016 10:26:Arlen Otero RN) Disposition of Belongings: Kept with Patient (03/04/2016 10:26:Arlen Otero RN) Advance Direct for Healthcare: No, and Wants No Information (03/04/2016 10:26:Arlen Otero RN) Durable Power of Library Customer Service Clerk: No (03/04/2016 10:26:Arlen Otero RN) Living Will: No (03/04/2016 10:26:Arlen Otero RN) Organ Donor: No (03/04/2016 10:26:Arlen Otero RN) Pt Rights Information Given: Yes (03/04/2016 10:26:Arlen Otero RN) Pt Understands Pt Rights: Yes (03/04/2016 10:26:Arlen Otero RN) LEARNING ASSESSMENT Knowledge Level: Understands L_D Process; Understands Diagnosis (03/04/2016 10:26:Arlen Otero RN) Barriers to Learning: Communication Barrier (03/04/2016 10:26:Arlen Otero RN) Learning Readiness: Motivated (03/04/2016 10:26:Arlen Otero RN) Learns Best By: 1 to 1 Instruction; Reading (03/04/2016 10:26:Arlen Otero RN) Learning Needs: Labor and Delivery Process; Pain Management; Symptoms to Report; Treatment Plan; Medication; Diagnosis; Nutrition; Equipment; Care; Community Resources (03/04/2016 10:26:Arlen Otero RN) Learning Assessment Comments: Patient is german speaking; Rigoti on unit (03/04/2016 10:26:Arlen Otero RN) DOMESTIC VIOLANCE SCREENING Dom Viol Threatened/Hurt: No (03/04/2016 10:26:Arlen Otero RN) Hx of Abuse/Neglect past 2yrs: No (03/04/2016 10:26:Arlen Otero RN) Feel Unsafe Going Home: No (03/04/2016 10:26:Arlen Otero RN) Addt'l Observ Indicating Abuse: No (03/04/2016 10:26:Arlen Otero RN) Reason Unable to Complete Screen: N/A, Screen Completed (03/04/2016 10:26:Arlen Otero RN) Considered Personal Harm/Suicide: No (03/04/2016 10:26:Arlen Otero RN) NUTRITIONAL/FUNCTIONAL SCREENING Problem with Appetite >5 Days: No (03/04/2016 10:26:Arlen Otero RN) Chew/Swallow Difficulties: No (03/04/2016 10:26:Arlen Otero RN) Inappropriate Wt Gain/Loss: No (03/04/2016 10:26:Arlen Otero RN) Presence Skin Breakdown/Ulcer: No (03/04/2016 10:26:Arlen Otero RN) Special Diet: No (03/04/2016 10:26:Arlen Otero RN) Pt Requests Tailercpa Visit: No (03/04/2016 10:26:Arlen Otero RN) Hx of Any of the Following?: N/A (03/04/2016 10:26:Arlen Otero RN) New Diagnosis of: N/A (03/04/2016 10:26:Arlen Otero RN) Requires Assist w/Ambulation: No (03/04/2016 10:26:Arlen Otero RN) Uses Assist Device to Ambulate: No (03/04/2016 10:26:Arlen Otero RN) Pt Requires Help w/ADL's: No (03/04/2016 10:26:Arlen Otero RN)
--- NOTE | 2016-03-11 06:04 | L&D General Admission ---
General Admit Datetime Report Generated by CPN: 03/11/2016 06:00 INFORMATION Patient Age: 25 (11/07/2015 16:59:QS system process) EDC: 03/04/2016 00:00 (11/07/2015 17:09:Chester Burk RN) : 2 (11/07/2015 17:09:Chester Burk RN) Para: 1 (02/28/2016 21:37:Tabitha Rothman RN) Term: 1 (11/07/2015 17:09:Chester Burk RN) : 0 (11/07/2015 17:09:Chester Burk RN) Spontaneous Abortions: 0 (11/07/2015 17:09:Chester Burk RN) Induced Abortions: 0 (11/07/2015 17:09:Chester Burk RN) Livin (11/07/2015 17:09:Chester Burk RN) Cesareans: 0 (11/07/2015 17:09:Chester Burk RN) VBACs: 0 (11/07/2015 17:09:Chester Burk RN) Ectopic: 0 (11/07/2015 17:09:Chester Burk RN) Multiple Births: 0 (11/07/2015 17:09:Chester Burk RN) Baby, Number in Womb: 1 (02/28/2016 21:37:Tabitha Rothman RN) CARE Primary Junior High Math Teacher: [facility] Department (11/07/2015 17:09:Chester Burk RN) Adequate Care: Yes (11/07/2015 17:09:Winifred Will RN) Height (in): 60 (03/04/2016 09:42:QS system process) ALLERGIES Medication Allergy: No (11/07/2015 17:09:Chester Burk RN) Medication Allergies: No Known Allergies (03/04/2016) (03/04/2016 09:41:QS system process) Latex Allergy: No Latex Allergies (11/07/2015 17:09:Arlen Otero RN) Food Allergies: None (11/07/2015 17:09:Winifred Will RN) Environmental Allergies: None (11/07/2015 17:09:Winifred Will RN) COMMUNICATION Primary Language: Lao (11/07/2015 17:09:Chester Burk RN) Medical Tx Preferred Language: Lao; Castilian (11/07/2015 17:09:Chester Burk RN) Belizean Communication Ability: 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, AUTO TECHNICIAN needed (11/07/2015 17:09:Chester Burk RN) Communication Barrier(s): Language barrier; Hearing deficit (11/07/2015 17:09:Arlen Otero RN) DEMOGRAPHICS Address: [place] [address] (11/07/2015 16:59:QS system process) Zipcode: [phone] (11/07/2015 16:59:QS system process) Home (11/07/2015 16:59:QS system process) SSN: [id number] (11/07/2015 16:59:QS system process) Next of Kin Name: ELIN CLAROS (11/07/2015 16:59:QS system process) Next of Kin (11/07/2015 16:59:QS system process) Next of Kin Relationship: SPO (11/07/2015 16:59:QS system process) Date of : 1990 (11/07/2015 16:59:QS system process) Marital Status: Single (11/07/2015 16:59:QS system process) Sex: Female (11/07/2015 16:59:QS system process) Race: Other (11/07/2015 16:59:QS system process) Ethnicity: or (11/07/2015 16:59:QS system process) Protestant: Other (11/07/2015 16:59:QS system process) DRUG AND ALCOHOL USE Alcohol: No (11/07/2015 17:09:Winifred Will RN) Cigarettes: Never Smoker. [id number] (11/07/2015 17:09:Winifred Will RN) Marijuana: No (11/07/2015 17:09:Winifred Will RN) Cocaine: No (11/07/2015 17:09:Winifred Will RN) Other Illicit Drugs: No (11/07/2015 17:09:Winifred Will RN) VACCINE HISTORY Influenza Vaccine: Yes (11/07/2015 17:09:Gia Houston RN) Pneumococcal Vaccine: No (Annotations: Data stored by N on behalf of user) (11/07/2015 17:09:Racheal Zimmerman RN) Tetanus Vaccine: Yes (11/07/2015 17:09:Gia Houston RN) Tdap Vaccine: Yes (11/07/2015 17:09:Gia Houston RN) Hepatitis B Vaccine: No (11/07/2015 17:09:Gia Houston RN) Shake Maker: [facility] [place], [place] (11/07/2015 17:09:Gia Houston RN) Feeding Preference: Both (11/07/2015 17:09:Gia Houston RN) Benefit of Breast Feed Discussed: Yes (11/07/2015 17:09:Gia Houston RN) Circumcision: No (11/07/2015 17:09:Gia Houston RN) Tubal Ligation: No (11/07/2015 17:09:Gia Houston RN) Tubal Authorization Signed: N/A (11/07/2015 17:09:Gia Houston RN) Consent: N/A (11/07/2015 17:09:Gia Houston RN) Consent Signed: N/A (11/07/2015 17:09:Gia Houston RN) Pain Management Plans: Natural; Medications (11/07/2015 17:09:Gia Houston RN) Plans for Labor and Delivery: None (11/07/2015 17:09:Gia Houston RN) Support Person: Markel (11/07/2015 17:09:Gia Houston RN) Support Person Relationship: (11/07/2015 17:09:Gia Houston RN) Cultural/Spritual Practice: No (11/07/2015 17:09:Gia Houston RN) Spir/Cult Dietary Needs: No (11/07/2015 17:09:Gia Houston RN) LIVING SITUATION/DISCHARGE PLAN Living Arrangements: House (11/07/2015 17:09:Gia Houston RN) Adequate Access to:: Electric; Heat; Refrigeration; Plumbing/Running water; Phone; Transportation (11/07/2015 17:09:Gia Houston RN) WIC Program: No (11/07/2015 17:09:Gia Houston RN) Discharge Treasury Accountant Person: Markel (11/07/2015 17:09:Gia Houston RN) Person to Help after Discharge: Markel (11/07/2015 17:09:Gia Houston RN) Currently Using Commun Resources: No (11/07/2015 17:09:Gia Houston RN) Outside Agency/Review Rn: N/A (11/07/2015 17:09:Gia Houston RN) Car Seat for Discharge: Yes (11/07/2015 17:09:Gia Houston RN) Adoption Requested: Yes (11/07/2015 17:09:Gia Houston RN) Pt Contact w/infant Post : N/A (11/07/2015 17:09:Gia Houston RN) LABS Blood Type: O Positive (11/07/2015 17:09:Lindsay Camarena RN) Antibody Screen: negative (11/07/2015 17:09:Lindsay Camarena RN) Hemoglobin: 11.0 L (03/05/2016 07:32:QS system process) Hematocrit: 35.0 L (03/05/2016 07:32:QS system process) MCV: 88 (03/05/2016 07:32:QS system process) Group Beta Strep: Negative (Annotations: Data stored by [facility] on behalf of user) (11/07/2015 17:09:Arlen Otero RN) Gonorrhea: Negative (11/07/2015 17:09:Lindsay Camarena RN) Chlamydia: Negative (11/07/2015 17:09:Lindsay Camarena RN) HIV Results: nonreactive (11/07/2015 17:09:Lindsay Camarena RN) Hepatitis B: Negative (11/07/2015 17:09:Lindsay Camarena RN) Rubella: Immune (11/07/2015 17:09:Lindsay Camarena RN) Varicella: Non Susceptible (11/07/2015 17:09:Lindsay Camarena RN) Other Lab Procedures/Results: pos GBS in urine-treat (11/07/2015 17:09:Lindsay Camarena RN) OB/PREVIOUS HISTORY Previous Procedures: Ultrasound (11/07/2015 17:09:Winifred Will RN) Current Procedures: Ultrasound (11/07/2015 17:09:Winifred Will RN) History of Previous : No (11/07/2015 17:09:Winifred Will RN) History of Gestational Diabetes: No (11/07/2015 17:09:Winifred Will RN) History of PIH: No (11/07/2015 17:09:Winifred Will RN) History of Incompetent Cervix: No (11/07/2015 17:09:Winifred Will RN) History of Placenta Previa/Abrup: No (11/07/2015 17:09:Winifred Will RN) History of Macrosomia: No (11/07/2015 17:09:Winifred Will RN) History of IUGR: No (11/07/2015 17:09:Winifred Will RN) History of Hemorrhage: No (11/07/2015 17:09:Winifred Will RN) History of Loss/Stillborn: No (11/07/2015 17:09:Winifred Will RN) History of : No (11/07/2015 17:09:Winifred Will RN) History of D (Rh) Sensitization: No (11/07/2015 17:09:Winifred Will RN) History Recurrent Loss/Stillborn: No (11/07/2015 17:09:Winifred Will RN) History Depression/PP Depression: No (11/07/2015 17:09:Winifred Will RN) History of Uterine Anomaly/JENNIFFER: No (11/07/2015 17:09:Winifred Will RN) History of Infertility: No (11/07/2015 17:09:Winifred Will RN) History of ART Treatment: No (11/07/2015 17:09:Winifred Will RN) History of JENNIFFER: No (11/07/2015 17:09:Winifred Will RN) Comments Obstetrical History: G1 - 05/2009 - at 38wks, 3.249kg (in [place]) G2 - current (11/07/2015 17:09:Gia Houston RN) MEDICAL HISTORY Med Hx Diabetes: No (11/07/2015 17:09:Winifred Will RN) Med Hx Hypertension: No (11/07/2015 17:09:Winifred Will RN) Med Hx Heart Disease: No (11/07/2015 17:09:Winifred Will RN) Med Hx Autoimmune Disorder: No (11/07/2015 17:09:Winifred Will RN) Med Hx Kidney Disease/UTI: No (11/07/2015 17:09:Winifred Will RN) Med Hx Neurologic/Epilepsy: No (11/07/2015 17:09:Winifred Will RN) Med Hx Psychiatric Disorders: No (11/07/2015 17:09:Winifred Will RN) Med Hx Hepatitis/Liver Disease: No (11/07/2015 17:09:Winifred Will RN) Med Hx Varicosities/Phlebitis: No (11/07/2015 17:09:Winifred Will RN) Med Hx Thyroid Dysfunction: No (11/07/2015 17:09:Winifred Will RN) Med Hx Trauma/Violence: No (11/07/2015 17:09:Winifred Will RN) Med Hx Blood Transfusion: No (11/07/2015 17:09:Winifred Will RN) Med Hx Pulmonary (Asthma,TB): No (11/07/2015 17:09:Winifred Will RN) Med Hx Breast: No (11/07/2015 17:09:Winifred Will RN) Med Hx WATER SKI ASSEMBLER Surgery: No (11/07/2015 17:09:Winifred Will RN) Med Hx Hospitalization/Surgery: Yes (11/07/2015 17:09:Gia Houston RN) Med Hx Anesthetic Complications: No (11/07/2015 17:09:Winifred Will RN) Med Hx Abnormal Pap Smear: No (11/07/2015 17:09:Winifred Will RN) Other Medical Diseases: No (11/07/2015 17:09:Winifred Will RN) Med Hx Significant Family Hx: No (11/07/2015 17:09:Winifred Will RN) Details of Med/Surg Hx: Hospitalized for first (11/07/2015 17:09:Gia Houston RN) INFECTIOUS HISTORY Inf Hx Gonorrhea: No (11/07/2015 17:09:Winifred Will RN) Inf Hx Chlamydia: No (11/07/2015 17:09:Winifred Will RN) Inf Hx Syphilis: No (11/07/2015 17:09:Winifred Will RN) Inf Hx HIV/AIDS: No (11/07/2015 17:09:Winifred Will RN) Inf Hx Human Papilloma Virus: No (11/07/2015 17:09:Winifred Will RN) Inf Hx Pt/Partner Genital Herpes: No (11/07/2015 17:09:Winifred Will RN) Inf Hx Tuberculosis/Exposure: No (11/07/2015 17:09:Winifred Will RN) Inf Hx Hepatitis B,C: No (11/07/2015 17:09:Winifred Will RN) Inf Hx Rash or Viral Illness: No (11/07/2015 17:09:Winifred Will RN) GENETIC HISTORY Gen Hx Age >=35 at DANK: No (11/07/2015 17:09:Winifred Will RN) Gen Hx Thalassemia: No (11/07/2015 17:09:Winifred Will RN) Gen Hx Congenital Heart Defect: No (11/07/2015 17:09:Winifred Will RN) Gen Hx Neural Tube Defect: No (11/07/2015 17:09:Winifred Will RN) Gen Hx Down's Syndrome: No (11/07/2015 17:09:Winifred Will RN) Gen Hx Davey-Sachs: No (11/07/2015 17:09:Winifred Will RN) Gen Hx Tami: No (11/07/2015 17:09:Winifred Will RN) Gen Hx Familial Dysautonomia: No (11/07/2015 17:09:Winifred Will RN) Gen Hx Sickle Cell Disease/Trait: No (11/07/2015 17:09:Winifred Will RN) Gen Hx Hemophilia/Blood Disorder: No (11/07/2015 17:09:Winifred Will RN) Gen Hx Muscular Dystrophy: No (11/07/2015 17:09:Winifred Will RN) Gen Hx Cystic Fibrosis: No (11/07/2015 17:09:Winifred Will RN) Gen Hx Hunting[place] Chorea: No (11/07/2015 17:09:Winifred Will RN) Gen Hx Mental Retardation/Autism: No (11/07/2015 17:09:Winifred Will RN) Gen Hx Tested for Fragile X: No (11/07/2015 17:09:Winifred Will RN) Gen Hx Other Inher/Chromosomal: No (11/07/2015 17:09:Winifred Will RN) Gen Hx Maternal Metabolic DO: No (11/07/2015 17:09:Winifred Will RN) Gen Hx Pt Father or FOB Defect: No (11/07/2015 17:09:Winifred Will RN) Gen Hx Other Genetic History: No (11/07/2015 17:09:Winifred Will RN) Gen Hx Drugs/Meds since LMP: Yes (11/07/2015 17:09:Gia Houston RN) Gen Hx Medications: pnv, tums, tylenol (11/07/2015 17:09:Gia Houston RN)
--- NOTE | 2016-03-12 06:04 | L&D General Admission ---
General Admit Datetime Report Generated by CPN: 03/12/2016 06:00 INFORMATION Patient Age: 25 (11/07/2015 16:59:QS system process) EDC: 03/04/2016 00:00 (11/07/2015 17:09:Chester Burk RN) : 2 (11/07/2015 17:09:Chester Burk RN) Para: 1 (02/28/2016 21:37:Tabitha Rothman RN) Term: 1 (11/07/2015 17:09:Chester Burk RN) : 0 (11/07/2015 17:09:Chester Burk RN) Spontaneous Abortions: 0 (11/07/2015 17:09:Chester Burk RN) Induced Abortions: 0 (11/07/2015 17:09:Chester Burk RN) Livin (11/07/2015 17:09:Chester Burk RN) Cesareans: 0 (11/07/2015 17:09:Chester Burk RN) VBACs: 0 (11/07/2015 17:09:Chester Burk RN) Ectopic: 0 (11/07/2015 17:09:Chester Burk RN) Multiple Births: 0 (11/07/2015 17:09:Chester Burk RN) Baby, Number in Womb: 1 (02/28/2016 21:37:Tabitha Rothman RN) CARE Primary Advertising Account Representative: [facility] Department (11/07/2015 17:09:Chester Burk RN) Adequate Care: Yes (11/07/2015 17:09:Winifred Will RN) Height (in): 60 (03/04/2016 09:42:QS system process) ALLERGIES Medication Allergy: No (11/07/2015 17:09:Chester Burk RN) Medication Allergies: No Known Allergies (03/04/2016) (03/04/2016 09:41:QS system process) Latex Allergy: No Latex Allergies (11/07/2015 17:09:Arlen Otero RN) Food Allergies: None (11/07/2015 17:09:Winifred Will RN) Environmental Allergies: None (11/07/2015 17:09:Winifred Will RN) COMMUNICATION Primary Language: South Sudanese (11/07/2015 17:09:Chester Burk RN) Medical Tx Preferred Language: South Sudanese; Castilian (11/07/2015 17:09:Chester Burk RN) Sammarinese Communication Ability: 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, 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 (11/07/2015 17:09:Chester Burk RN) Communication Barrier(s): Language barrier; Hearing deficit (11/07/2015 17:09:Arlen Otero RN) DEMOGRAPHICS Address: [place] [address] (11/07/2015 16:59:QS system process) Zipcode: [phone] (11/07/2015 16:59:QS system process) Home (11/07/2015 16:59:QS system process) SSN: [id number] (11/07/2015 16:59:QS system process) Next of Kin Name: ELIN CLAROS (11/07/2015 16:59:QS system process) Next of Kin (11/07/2015 16:59:QS system process) Next of Kin Relationship: SPO (11/07/2015 16:59:QS system process) Date of : 1990 (11/07/2015 16:59:QS system process) Marital Status: Single (11/07/2015 16:59:QS system process) Sex: Female (11/07/2015 16:59:QS system process) Race: Other (11/07/2015 16:59:QS system process) Ethnicity: or (11/07/2015 16:59:QS system process) Roman Catholic: Other (11/07/2015 16:59:QS system process) DRUG AND ALCOHOL USE Alcohol: No (11/07/2015 17:09:Winifred Will RN) Cigarettes: Never Smoker. [id number] (11/07/2015 17:09:Winifred Will RN) Marijuana: No (11/07/2015 17:09:Winifred Will RN) Cocaine: No (11/07/2015 17:09:Winifred Will RN) Other Illicit Drugs: No (11/07/2015 17:09:Winifred Will RN) VACCINE HISTORY Influenza Vaccine: Yes (11/07/2015 17:09:Gia Houston RN) Pneumococcal Vaccine: No (Annotations: Data stored by N on behalf of user) (11/07/2015 17:09:Racheal Zimmerman RN) Tetanus Vaccine: Yes (11/07/2015 17:09:Gia Houston RN) Tdap Vaccine: Yes (11/07/2015 17:09:Gia Houston RN) Hepatitis B Vaccine: No (11/07/2015 17:09:Gia Houston RN) Pattern Lease Inspector: [facility] (11/07/2015 17:09:Gia Houston RN) Feeding Preference: Both (11/07/2015 17:09:Gia Houston RN) Benefit of Breast Feed Discussed: Yes (11/07/2015 17:09:Gia Houston RN) Circumcision: No (11/07/2015 17:09:Gia Houston RN) Tubal Ligation: No (11/07/2015 17:09:Gia Houston RN) Tubal Authorization Signed: N/A (11/07/2015 17:09:Gia Houston RN) Consent: N/A (11/07/2015 17:09:Gia Houston RN) Consent Signed: N/A (11/07/2015 17:09:Gia Houston RN) Pain Management Plans: Natural; Medications (11/07/2015 17:09:Gia Houston RN) Plans for Labor and Delivery: None (11/07/2015 17:09:Gia Houston RN) Support Person: Markel (11/07/2015 17:09:iGa Houston RN) Support Person Relationship: (11/07/2015 17:09:Gia Houston RN) Cultural/Spritual Practice: No (11/07/2015 17:09:Gia Houston RN) Spir/Cult Dietary Needs: No (11/07/2015 17:09:Gia Houston RN) LIVING SITUATION/DISCHARGE PLAN Living Arrangements: House (11/07/2015 17:09:Gia Houston RN) Adequate Access to:: Electric; Heat; Refrigeration; Plumbing/Running water; Phone; Transportation (11/07/2015 17:09:Gia Houston RN) WIC Program: No (11/07/2015 17:09:Gia Houston RN) Discharge Swat Team Member Person: Markel (11/07/2015 17:09:Gia Houston RN) Person to Help after Discharge: Markel (11/07/2015 17:09:Gia Houston RN) Currently Using Commun Resources: No (11/07/2015 17:09:Gia Houston RN) Outside Agency/Rod Buster Helper: N/A (11/07/2015 17:09:Gia Houston RN) Car Seat for Discharge: Yes (11/07/2015 17:09:Gai Houston RN) Adoption Requested: Yes (11/07/2015 17:09:Gia Houston RN) Pt Contact w/infant Post : N/A (11/07/2015 17:09:Gia Houston RN) LABS Blood Type: O Positive (11/07/2015 17:09:Lindsay Camarena RN) Antibody Screen: negative (11/07/2015 17:09:Lindsay Camarena RN) Hemoglobin: 11.0 L (03/05/2016 07:32:QS system process) Hematocrit: 35.0 L (03/05/2016 07:32:QS system process) MCV: 88 (03/05/2016 07:32:QS system process) Group Beta Strep: Negative (Annotations: Data stored by [facility] on behalf of user) (11/07/2015 17:09:Arlen Otero RN) Gonorrhea: Negative (11/07/2015 17:09:Lindsay Camarena RN) Chlamydia: Negative (11/07/2015 17:09:Lindsay Camarena RN) HIV Results: nonreactive (11/07/2015 17:09:Lindsay Camarena RN) Hepatitis B: Negative (11/07/2015 17:09:Lindsay Camarena RN) Rubella: Immune (11/07/2015 17:09:Lindsay Camarena RN) Varicella: Non Susceptible (11/07/2015 17:09:Lindsay Camarena RN) Other Lab Procedures/Results: pos GBS in urine-treat (11/07/2015 17:09:Lindsay Camarena RN) OB/PREVIOUS HISTORY Previous Procedures: Ultrasound (11/07/2015 17:09:Winifred Will RN) Current Procedures: Ultrasound (11/07/2015 17:09:Winifred Will RN) History of Previous : No (11/07/2015 17:09:Winifred Will RN) History of Gestational Diabetes: No (11/07/2015 17:09:Winifred Will RN) History of PIH: No (11/07/2015 17:09:Winifred Will RN) History of Incompetent Cervix: No (11/07/2015 17:09:Winifred Will RN) History of Placenta Previa/Abrup: No (11/07/2015 17:09:Winifred Will RN) History of Macrosomia: No (11/07/2015 17:09:Winifred Will RN) History of IUGR: No (11/07/2015 17:09:Winifred Will RN) History of Hemorrhage: No (11/07/2015 17:09:Winifred Will RN) History of Loss/Stillborn: No (11/07/2015 17:09:Winifred Will RN) History of : No (11/07/2015 17:09:Winifred Will RN) History of D (Rh) Sensitization: No (11/07/2015 17:09:Winifred Will RN) History Recurrent Loss/Stillborn: No (11/07/2015 17:09:Winifred Will RN) History Depression/PP Depression: No (11/07/2015 17:09:Winifred Will RN) History of Uterine Anomaly/JENNIFFER: No (11/07/2015 17:09:Winifred Will RN) History of Infertility: No (11/07/2015 17:09:Winifred Will RN) History of ART Treatment: No (11/07/2015 17:09:Winifred Will RN) History of JENNIFFER: No (11/07/2015 17:09:Winifred Will RN) Comments Obstetrical History: G1 - 05/2009 - at 38wks, 3.249kg (in [place]) G2 - current (11/07/2015 17:09:Gia Houston RN) MEDICAL HISTORY Med Hx Diabetes: No (11/07/2015 17:09:Winifred Will RN) Med Hx Hypertension: No (11/07/2015 17:09:Winifred Will RN) Med Hx Heart Disease: No (11/07/2015 17:09:Winifred Will RN) Med Hx Autoimmune Disorder: No (11/07/2015 17:09:Winifred Will RN) Med Hx Kidney Disease/UTI: No (11/07/2015 17:09:Winifred Will RN) Med Hx Neurologic/Epilepsy: No (11/07/2015 17:09:Winifred Will RN) Med Hx Psychiatric Disorders: No (11/07/2015 17:09:Winifred Will RN) Med Hx Hepatitis/Liver Disease: No (11/07/2015 17:09:Winifred Will RN) Med Hx Varicosities/Phlebitis: No (11/07/2015 17:09:Winifred Will RN) Med Hx Thyroid Dysfunction: No (11/07/2015 17:09:Winifred Will RN) Med Hx Trauma/Violence: No (11/07/2015 17:09:Winifred Will RN) Med Hx Blood Transfusion: No (11/07/2015 17:09:Winifred Will RN) Med Hx Pulmonary (Asthma,TB): No (11/07/2015 17:09:Winifred Will RN) Med Hx Breast: No (11/07/2015 17:09:Winifred Will RN) Med Hx SURGICAL INSTRUMENT TECHNICIAN Surgery: No (11/07/2015 17:09:Winifred Will RN) Med Hx Hospitalization/Surgery: Yes (11/07/2015 17:09:Gia Houston RN) Med Hx Anesthetic Complications: No (11/07/2015 17:09:Winifred Will RN) Med Hx Abnormal Pap Smear: No (11/07/2015 17:09:Winifred Will RN) Other Medical Diseases: No (11/07/2015 17:09:Winifred Will RN) Med Hx Significant Family Hx: No (11/07/2015 17:09:Winifred Will RN) Details of Med/Surg Hx: Hospitalized for first (11/07/2015 17:09:Gia Houston RN) INFECTIOUS HISTORY Inf Hx Gonorrhea: No (11/07/2015 17:09:Winifred Will RN) Inf Hx Chlamydia: No (11/07/2015 17:09:Winifred Will RN) Inf Hx Syphilis: No (11/07/2015 17:09:Winifred Will RN) Inf Hx HIV/AIDS: No (11/07/2015 17:09:Winifred Will RN) Inf Hx Human Papilloma Virus: No (11/07/2015 17:09:Winifred Will RN) Inf Hx Pt/Partner Genital Herpes: No (11/07/2015 17:09:Winifred Will RN) Inf Hx Tuberculosis/Exposure: No (11/07/2015 17:09:Winifred Will RN) Inf Hx Hepatitis B,C: No (11/07/2015 17:09:Winifred Will RN) Inf Hx Rash or Viral Illness: No (11/07/2015 17:09:Winifred Will RN) GENETIC HISTORY Gen Hx Age >=35 at DANK: No (11/07/2015 17:09:Winifred Will RN) Gen Hx Thalassemia: No (11/07/2015 17:09:Winifred Will RN) Gen Hx Congenital Heart Defect: No (11/07/2015 17:09:Winifred Will RN) Gen Hx Neural Tube Defect: No (11/07/2015 17:09:Winifred Will RN) Gen Hx Down's Syndrome: No (11/07/2015 17:09:Winifred Will RN) Gen Hx Davey-Sachs: No (11/07/2015 17:09:Winifred Will RN) Gen Hx Tami: No (11/07/2015 17:09:Winifred Will RN) Gen Hx Familial Dysautonomia: No (11/07/2015 17:09:Winifred Will RN) Gen Hx Sickle Cell Disease/Trait: No (11/07/2015 17:09:Winifred Will RN) Gen Hx Hemophilia/Blood Disorder: No (11/07/2015 17:09:Winifred Will RN) Gen Hx Muscular Dystrophy: No (11/07/2015 17:09:Winifred Will RN) Gen Hx Cystic Fibrosis: No (11/07/2015 17:09:Winifred Will RN) Gen Hx [place] Chorea: No (11/07/2015 17:09:Winifred Will RN) Gen Hx Mental Retardation/Autism: No (11/07/2015 17:09:Winifred Will RN) Gen Hx Tested for Fragile X: No (11/07/2015 17:09:Winifred Will RN) Gen Hx Other Inher/Chromosomal: No (11/07/2015 17:09:Winifred Will RN) Gen Hx Maternal Metabolic DO: No (11/07/2015 17:09:Winifred Will RN) Gen Hx Pt Father or FOB Defect: No (11/07/2015 17:09:Winifred Will RN) Gen Hx Other Genetic History: No (11/07/2015 17:09:Winifred Will RN) Gen Hx Drugs/Meds since LMP: Yes (11/07/2015 17:09:Gia Houston RN) Gen Hx Medications: pnv, tums, tylenol (11/07/2015 17:09:Gia Houston RN)
--- NOTE | 2016-03-12 06:04 | L&D Current Admission ---
Current Admit Datetime Report Generated by CPN: 03/12/2016 06:00 ADMISSION INFORMATION Current Admit Date/Time: 03/04/2016 09:40 (03/04/2016 10:26:Arlen Otero RN) Reason for Admission: Onset of Labor; Rupture of Membranes (03/04/2016 10:26:Arlen Otero RN) Chief Complaint: Contractions; Suspected Rupture of Membranes (03/04/2016 10:26:Arlen Otero RN) Meds During -Oth: Denies (03/04/2016 10:26:Arlen Otero RN) EGA per Dates: 40.0 (03/04/2016 10:26:QS system process) Method of Arrival: Wheelchair (03/04/2016 10:26:Arlen Otero RN) Admitted From: Home (03/04/2016 10:26:Arlen Otero RN) Reason for Induction: Not Applicable (03/04/2016 10:26:Arlen Otero RN) Records Available: Yes (03/04/2016 10:26:Arlen Otero RN) General Admission Information: Reviewed (03/04/2016 10:26:Arlen Otero RN) General Admission Reviewed By: Arlen Otero RN (03/04/2016 10:26:Arlen Otero RN) BELONGINGS/ADVANCED DIRECTIVES Valuables/Personal Effects: Purse/Wallet; Cell Phone; Jewelry (03/04/2016 10:26:Arlen Otero RN) Other Belongings: See [facility] belongings form (03/04/2016 10:26:Arlen Otero RN) Disposition of Belongings: Kept with Patient (03/04/2016 10:26:Arlen Otero RN) Advance Direct for Healthcare: No, and Wants No Information (03/04/2016 10:26:Arlen Otero RN) Durable Power of Nuclear Powerplant Mechanic: No (03/04/2016 10:26:Arlen Otero RN) Living Will: No (03/04/2016 10:26:Arlen Otero RN) Organ Donor: No (03/04/2016 10:26:Arlen Otero RN) Pt Rights Information Given: Yes (03/04/2016 10:26:Arlen Otero RN) Pt Understands Pt Rights: Yes (03/04/2016 10:26:Arlen Otero RN) LEARNING ASSESSMENT Knowledge Level: Understands L_D Process; Understands Diagnosis (03/04/2016 10:26:Arlen Otero RN) Barriers to Learning: Communication Barrier (03/04/2016 10:26:Arlen Otero RN) Learning Readiness: Motivated (03/04/2016 10:26:Arlen Otero RN) Learns Best By: 1 to 1 Instruction; Reading (03/04/2016 10:26:Arlen Otero RN) Learning Needs: Labor and Delivery Process; Pain Management; Symptoms to Report; Treatment Plan; Medication; Diagnosis; Nutrition; Equipment; Care; Community Resources (03/04/2016 10:26:Arlen Otero RN) Learning Assessment Comments: Patient is turkmen speaking; Rigoti on unit (03/04/2016 10:26:Arlen Otero RN) DOMESTIC VIOLANCE SCREENING Dom Viol Threatened/Hurt: No (03/04/2016 10:26:Arlen Otero RN) Hx of Abuse/Neglect past 2yrs: No (03/04/2016 10:26:Arlen Otero RN) Feel Unsafe Going Home: No (03/04/2016 10:26:Arlen Otero RN) Addt'l Observ Indicating Abuse: No (03/04/2016 10:26:Arlen Otero RN) Reason Unable to Complete Screen: N/A, Screen Completed (03/04/2016 10:26:Arlen Otero RN) Considered Personal Harm/Suicide: No (03/04/2016 10:26:Arlen Otero RN) NUTRITIONAL/FUNCTIONAL SCREENING Problem with Appetite >5 Days: No (03/04/2016 10:26:Arlen Otero RN) Chew/Swallow Difficulties: No (03/04/2016 10:26:rAlen Otero RN) Inappropriate Wt Gain/Loss: No (03/04/2016 10:26:Arlen Otero RN) Presence Skin Breakdown/Ulcer: No (03/04/2016 10:26:Arlen Otero RN) Special Diet: No (03/04/2016 10:26:Arlen Otero RN) Pt Requests Donation Worker Visit: No (03/04/2016 10:26:Arlen Otero RN) Hx of Any of the Following?: N/A (03/04/2016 10:26:Arlen Otero RN) New Diagnosis of: N/A (03/04/2016 10:26:Arlen Otero RN) Requires Assist w/Ambulation: No (03/04/2016 10:26:Arlen Otero RN) Uses Assist Device to Ambulate: No (03/04/2016 10:26:Arlen Otero RN) Pt Requires Help w/ADL's: No (03/04/2016 10:26:Arlen Otero RN)
--- NOTE | 2016-03-12 18:05 | L&D Current Admission ---
Current Admit Datetime Report Generated by CPN: 03/12/2016 18:00 ADMISSION INFORMATION Current Admit Date/Time: 03/04/2016 09:40 (03/04/2016 10:26:Arlen Otero RN) Reason for Admission: Onset of Labor; Rupture of Membranes (03/04/2016 10:26:Arlen Otero RN) Chief Complaint: Contractions; Suspected Rupture of Membranes (03/04/2016 10:26:Arlen Otero RN) Meds During -Oth: Denies (03/04/2016 10:26:Arlen Otero RN) EGA per Dates: 40.0 (03/04/2016 10:26:QS system process) Method of Arrival: Wheelchair (03/04/2016 10:26:Arlen Otero RN) Admitted From: Home (03/04/2016 10:26:Arlen Otero RN) Reason for Induction: Not Applicable (03/04/2016 10:26:Arlen Otero RN) Records Available: Yes (03/04/2016 10:26:Arlen Otero RN) General Admission Information: Reviewed (03/04/2016 10:26:Arlen Otero RN) General Admission Reviewed By: Arlen Otero RN (03/04/2016 10:26:Arlen Otero RN) BELONGINGS/ADVANCED DIRECTIVES Valuables/Personal Effects: Purse/Wallet; Cell Phone; Jewelry (03/04/2016 10:26:Arlen Otero RN) Other Belongings: See [facility] belongings form (03/04/2016 10:26:Arlen Otero RN) Disposition of Belongings: Kept with Patient (03/04/2016 10:26:Arlen Otero RN) Advance Direct for Healthcare: No, and Wants No Information (03/04/2016 10:26:Arlen Otero RN) Durable Power of Track Grinder: No (03/04/2016 10:26:Arlen Otero RN) Living Will: No (03/04/2016 10:26:rAlen Otero RN) Organ Donor: No (03/04/2016 10:26:Arlen Otero RN) Pt Rights Information Given: Yes (03/04/2016 10:26:Arlen Otero RN) Pt Understands Pt Rights: Yes (03/04/2016 10:26:Arlen Otero RN) LEARNING ASSESSMENT Knowledge Level: Understands L_D Process; Understands Diagnosis (03/04/2016 10:26:Arlen Otero RN) Barriers to Learning: Communication Barrier (03/04/2016 10:26:Arlen Otero RN) Learning Readiness: Motivated (03/04/2016 10:26:Arlen Otero RN) Learns Best By: 1 to 1 Instruction; Reading (03/04/2016 10:26:Arlen Otero RN) Learning Needs: Labor and Delivery Process; Pain Management; Symptoms to Report; Treatment Plan; Medication; Diagnosis; Nutrition; Equipment; Care; Community Resources (03/04/2016 10:26:Arlen Otero RN) Learning Assessment Comments: Patient is amharic speaking; Rigoti on unit (03/04/2016 10:26:Arlen Otero RN) DOMESTIC VIOLANCE SCREENING Dom Viol Threatened/Hurt: No (03/04/2016 10:26:Arlen Otero RN) Hx of Abuse/Neglect past 2yrs: No (03/04/2016 10:26:Arlen Otero RN) Feel Unsafe Going Home: No (03/04/2016 10:26:Arlen Otero RN) Addt'l Observ Indicating Abuse: No (03/04/2016 10:26:Arlen Otero RN) Reason Unable to Complete Screen: N/A, Screen Completed (03/04/2016 10:26:Arlen Otero RN) Considered Personal Harm/Suicide: No (03/04/2016 10:26:Arlen Otero RN) NUTRITIONAL/FUNCTIONAL SCREENING Problem with Appetite >5 Days: No (03/04/2016 10:26:Arlen Otero RN) Chew/Swallow Difficulties: No (03/04/2016 10:26:Arlen Otero RN) Inappropriate Wt Gain/Loss: No (03/04/2016 10:26:Arlen Otero RN) Presence Skin Breakdown/Ulcer: No (03/04/2016 10:26:Arlen Otero RN) Special Diet: No (03/04/2016 10:26:Arlen Otero RN) Pt Requests Analytics Manager Visit: No (03/04/2016 10:26:Arlen Otero RN) Hx of Any of the Following?: N/A (03/04/2016 10:26:Arlen Otero RN) New Diagnosis of: N/A (03/04/2016 10:26:Arlen Otero RN) Requires Assist w/Ambulation: No (03/04/2016 10:26:Arlen Otero RN) Uses Assist Device to Ambulate: No (03/04/2016 10:26:Arlen Otero RN) Pt Requires Help w/ADL's: No (03/04/2016 10:26:Arlen Otero RN)
--- NOTE | 2016-03-12 18:05 | L&D General Admission ---
General Admit Datetime Report Generated by CPN: 03/12/2016 18:00 INFORMATION Patient Age: 25 (11/07/2015 16:59:QS system process) EDC: 03/04/2016 00:00 (11/07/2015 17:09:Chester Burk RN) : 2 (11/07/2015 17:09:Chester Burk RN) Para: 1 (02/28/2016 21:37:Tabitha Rothman RN) Term: 1 (11/07/2015 17:09:Chester Burk RN) : 0 (11/07/2015 17:09:Chester Burk RN) Spontaneous Abortions: 0 (11/07/2015 17:09:Chester Burk RN) Induced Abortions: 0 (11/07/2015 17:09:Chester Burk RN) Livin (11/07/2015 17:09:Chester Burk RN) Cesareans: 0 (11/07/2015 17:09:Chester Burk RN) VBACs: 0 (11/07/2015 17:09:Chester Burk RN) Ectopic: 0 (11/07/2015 17:09:Chester Burk RN) Multiple Births: 0 (11/07/2015 17:09:Chester Burk RN) Baby, Number in Womb: 1 (02/28/2016 21:37:Tabitha Rothman RN) CARE Primary Dairy Lab Technician: [facility] (11/07/2015 17:09:Chester Burk RN) Adequate Care: Yes (11/07/2015 17:09:Winifred Will RN) Height (in): 60 (03/04/2016 09:42:QS system process) ALLERGIES Medication Allergy: No (11/07/2015 17:09:Chester Burk RN) Medication Allergies: No Known Allergies (03/04/2016) (03/04/2016 09:41:QS system process) Latex Allergy: No Latex Allergies (11/07/2015 17:09:Arlen Otero RN) Food Allergies: None (11/07/2015 17:09:Winifred Will RN) Environmental Allergies: None (11/07/2015 17:09:Winifred Will RN) COMMUNICATION Primary Language: Botswanan (11/07/2015 17:09:Chester Burk RN) Medical Tx Preferred Language: Botswanan; Castilian (11/07/2015 17:09:Chester Burk RN) [place] Communication Ability: 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, THREADING MACHINE TENDER needed (11/07/2015 17:09:Chester Burk RN) Communication Barrier(s): Language barrier; Hearing deficit (11/07/2015 17:09:Arlen Otero RN) DEMOGRAPHICS Address: [place] [address] (11/07/2015 16:59:QS system process) Zipcode: [phone] (11/07/2015 16:59:QS system process) Home (11/07/2015 16:59:QS system process) SSN: [id number] (11/07/2015 16:59:QS system process) Next of Kin Name: ELIN CLAROS (11/07/2015 16:59:QS system process) Next of Kin (11/07/2015 16:59:QS system process) Next of Kin Relationship: SPO (11/07/2015 16:59:QS system process) Date of : 1990 (11/07/2015 16:59:QS system process) Marital Status: Single (11/07/2015 16:59:QS system process) Sex: Female (11/07/2015 16:59:QS system process) Race: Other (11/07/2015 16:59:QS system process) Ethnicity: or (11/07/2015 16:59:QS system process) Congregation: Other (11/07/2015 16:59:QS system process) DRUG AND ALCOHOL USE Alcohol: No (11/07/2015 17:09:Winifred Will RN) Cigarettes: Never Smoker. [id number] (11/07/2015 17:09:Winifred Will RN) Marijuana: No (11/07/2015 17:09:Winifred Will RN) Cocaine: No (11/07/2015 17:09:Winifred Will RN) Other Illicit Drugs: No (11/07/2015 17:09:Winifred Will RN) VACCINE HISTORY Influenza Vaccine: Yes (11/07/2015 17:09:Gia Houston RN) Pneumococcal Vaccine: No (Annotations: Data stored by N on behalf of user) (11/07/2015 17:09:Racheal Zimmerman RN) Tetanus Vaccine: Yes (11/07/2015 17:09:Gia Houston RN) Tdap Vaccine: Yes (11/07/2015 17:09:Gia Houston RN) Hepatitis B Vaccine: No (11/07/2015 17:09:Gia Houston RN) Business Database Analyst: [facility] (11/07/2015 17:09:Gia Houston RN) Feeding Preference: Both (11/07/2015 17:09:Gia Houston RN) Benefit of Breast Feed Discussed: Yes (11/07/2015 17:09:Gia Houston RN) Circumcision: No (11/07/2015 17:09:Gia Houston RN) Tubal Ligation: No (11/07/2015 17:09:Gia Houston RN) Tubal Authorization Signed: N/A (11/07/2015 17:09:Gia Houston RN) Consent: N/A (11/07/2015 17:09:Gia Houston RN) Consent Signed: N/A (11/07/2015 17:09:Gia Houston RN) Pain Management Plans: Natural; Medications (11/07/2015 17:09:Gia Houston RN) Plans for Labor and Delivery: None (11/07/2015 17:09:Gia Houston RN) Support Person: Markel (11/07/2015 17:09:Gia Houston RN) Support Person Relationship: (11/07/2015 17:09:Gia Houston RN) Cultural/Spritual Practice: No (11/07/2015 17:09:Gia Houston RN) Spir/Cult Dietary Needs: No (11/07/2015 17:09:Gia Houston RN) LIVING SITUATION/DISCHARGE PLAN Living Arrangements: House (11/07/2015 17:09:Gia Houston RN) Adequate Access to:: Electric; Heat; Refrigeration; Plumbing/Running water; Phone; Transportation (11/07/2015 17:09:Gia Houston RN) WIC Program: No (11/07/2015 17:09:Gia Houston RN) Discharge Clerical Assistant Person: Markel (11/07/2015 17:09:Gia Houston RN) Person to Help after Discharge: Markel (11/07/2015 17:09:Gia Houston RN) Currently Using Commun Resources: No (11/07/2015 17:09:Gia Houston RN) Outside Agency/Cardiographer: N/A (11/07/2015 17:09:Gia Houston RN) Car Seat for Discharge: Yes (11/07/2015 17:09:Gia Houston RN) Adoption Requested: Yes (11/07/2015 17:09:Gia Houston RN) Pt Contact w/infant Post : N/A (11/07/2015 17:09:Gia Houston RN) LABS Blood Type: O Positive (11/07/2015 17:09:Lindsay Camarena RN) Antibody Screen: negative (11/07/2015 17:09:Lindsay Camarena RN) Hemoglobin: 11.0 L (03/05/2016 07:32:QS system process) Hematocrit: 35.0 L (03/05/2016 07:32:QS system process) MCV: 88 (03/05/2016 07:32:QS system process) Group Beta Strep: Negative (Annotations: Data stored by [facility] on behalf of user) (11/07/2015 17:09:Arlen Otero RN) Gonorrhea: Negative (11/07/2015 17:09:Lindsay Camarena RN) Chlamydia: Negative (11/07/2015 17:09:Lindsay Camarena RN) HIV Results: nonreactive (11/07/2015 17:09:Lindsay Camarena RN) Hepatitis B: Negative (11/07/2015 17:09:Lindsay Camarena RN) Rubella: Immune (11/07/2015 17:09:Lindsay Camarena RN) Varicella: Non Susceptible (11/07/2015 17:09:Lindsay Camarena RN) Other Lab Procedures/Results: pos GBS in urine-treat (11/07/2015 17:09:Lindsay Camarena RN) OB/PREVIOUS HISTORY Previous Procedures: Ultrasound (11/07/2015 17:09:Winifred Will RN) Current Procedures: Ultrasound (11/07/2015 17:09:Winifred Will RN) History of Previous : No (11/07/2015 17:09:Winifred Will RN) History of Gestational Diabetes: No (11/07/2015 17:09:Winifred Will RN) History of PIH: No (11/07/2015 17:09:Winifred Will RN) History of Incompetent Cervix: No (11/07/2015 17:09:Winifred Will RN) History of Placenta Previa/Abrup: No (11/07/2015 17:09:Winifred Will RN) History of Macrosomia: No (11/07/2015 17:09:Winifred Will RN) History of IUGR: No (11/07/2015 17:09:Winifred Will RN) History of Hemorrhage: No (11/07/2015 17:09:Winifred Will RN) History of Loss/Stillborn: No (11/07/2015 17:09:Winifred Will RN) History of : No (11/07/2015 17:09:Winifred Will RN) History of D (Rh) Sensitization: No (11/07/2015 17:09:Winifred Will RN) History Recurrent Loss/Stillborn: No (11/07/2015 17:09:Winifred Will RN) History Depression/PP Depression: No (11/07/2015 17:09:Winifred Will RN) History of Uterine Anomaly/JENNIFFER: No (11/07/2015 17:09:Winifred Will RN) History of Infertility: No (11/07/2015 17:09:Winifred Will RN) History of ART Treatment: No (11/07/2015 17:09:Winifred Will RN) History of JENNIFFER: No (11/07/2015 17:09:Winifred Will RN) Comments Obstetrical History: G1 - 05/2009 - at 38wks, 3.249kg (in [place]) G2 - current (11/07/2015 17:09:Gia Houston RN) MEDICAL HISTORY Med Hx Diabetes: No (11/07/2015 17:09:Winifred Will RN) Med Hx Hypertension: No (11/07/2015 17:09:Winifred Will RN) Med Hx Heart Disease: No (11/07/2015 17:09:Winifred Will RN) Med Hx Autoimmune Disorder: No (11/07/2015 17:09:Winifred Will RN) Med Hx Kidney Disease/UTI: No (11/07/2015 17:09:Winifred Will RN) Med Hx Neurologic/Epilepsy: No (11/07/2015 17:09:Winifred Will RN) Med Hx Psychiatric Disorders: No (11/07/2015 17:09:Winifred Will RN) Med Hx Hepatitis/Liver Disease: No (11/07/2015 17:09:Winifred Will RN) Med Hx Varicosities/Phlebitis: No (11/07/2015 17:09:Winifred Will RN) Med Hx Thyroid Dysfunction: No (11/07/2015 17:09:Winifred Will RN) Med Hx Trauma/Violence: No (11/07/2015 17:09:Winifred Will RN) Med Hx Blood Transfusion: No (11/07/2015 17:09:Winifred Will RN) Med Hx Pulmonary (Asthma,TB): No (11/07/2015 17:09:Winifred Will RN) Med Hx Breast: No (11/07/2015 17:09:Winifred Will RN) Med Hx EXTERNAL GRINDER Surgery: No (11/07/2015 17:09:Winifred Will RN) Med Hx Hospitalization/Surgery: Yes (11/07/2015 17:09:Gia Houston RN) Med Hx Anesthetic Complications: No (11/07/2015 17:09:Winifred Will RN) Med Hx Abnormal Pap Smear: No (11/07/2015 17:09:Winifred Will RN) Other Medical Diseases: No (11/07/2015 17:09:Winifred Will RN) Med Hx Significant Family Hx: No (11/07/2015 17:09:Winifred Will RN) Details of Med/Surg Hx: Hospitalized for first (11/07/2015 17:09:Gia Houston RN) INFECTIOUS HISTORY Inf Hx Gonorrhea: No (11/07/2015 17:09:Winifred Will RN) Inf Hx Chlamydia: No (11/07/2015 17:09:Winifred Will RN) Inf Hx Syphilis: No (11/07/2015 17:09:Winifred Will RN) Inf Hx HIV/AIDS: No (11/07/2015 17:09:Winifred Will RN) Inf Hx Human Papilloma Virus: No (11/07/2015 17:09:Winifred Will RN) Inf Hx Pt/Partner Genital Herpes: No (11/07/2015 17:09:Winifred Will RN) Inf Hx Tuberculosis/Exposure: No (11/07/2015 17:09:Winifred Will RN) Inf Hx Hepatitis B,C: No (11/07/2015 17:09:Winifred Will RN) Inf Hx Rash or Viral Illness: No (11/07/2015 17:09:Winifred Will RN) GENETIC HISTORY Gen Hx Age >=35 at DANK: No (11/07/2015 17:09:Winifred Will RN) Gen Hx Thalassemia: No (11/07/2015 17:09:Winifred Will RN) Gen Hx Congenital Heart Defect: No (11/07/2015 17:09:Winifred Will RN) Gen Hx Neural Tube Defect: No (11/07/2015 17:09:Winifred Will RN) Gen Hx Down's Syndrome: No (11/07/2015 17:09:Winifred Will RN) Gen Hx Davey-Sachs: No (11/07/2015 17:09:Winifred Will RN) Gen Hx Tami: No (11/07/2015 17:09:Winifred Will RN) Gen Hx Familial Dysautonomia: No (11/07/2015 17:09:Winifred Will RN) Gen Hx Sickle Cell Disease/Trait: No (11/07/2015 17:09:Winifred Will RN) Gen Hx Hemophilia/Blood Disorder: No (11/07/2015 17:09:Winifred Will RN) Gen Hx Muscular Dystrophy: No (11/07/2015 17:09:Winifred Will RN) Gen Hx Cystic Fibrosis: No (11/07/2015 17:09:Winifred Will RN) Gen Hx Huntingtons Chorea: No (11/07/2015 17:09:Winifred Will RN) Gen Hx Mental Retardation/Autism: No (11/07/2015 17:09:Winifred Will RN) Gen Hx Tested for Fragile X: No (11/07/2015 17:09:Winifred Will RN) Gen Hx Other Inher/Chromosomal: No (11/07/2015 17:09:Winifred Will RN) Gen Hx Maternal Metabolic DO: No (11/07/2015 17:09:Winifred Will RN) Gen Hx Pt Father or FOB Defect: No (11/07/2015 17:09:Winifred Will RN) Gen Hx Other Genetic History: No (11/07/2015 17:09:Winifred Will RN) Gen Hx Drugs/Meds since LMP: Yes (11/07/2015 17:09:Gia Houston RN) Gen Hx Medications: pnv, tums, tylenol (11/07/2015 17:09:Gia Houston RN)
--- NOTE | 2016-03-13 06:06 | L&D General Admission ---
General Admit Datetime Report Generated by CPN: 03/13/2016 06:00 INFORMATION Patient Age: 25 (11/07/2015 16:59:QS system process) EDC: 03/04/2016 00:00 (11/07/2015 17:09:Chester Burk RN) : 2 (11/07/2015 17:09:Chester Burk RN) Para: 1 (02/28/2016 21:37:Tabitha Rothman RN) Term: 1 (11/07/2015 17:09:Chester Burk RN) : 0 (11/07/2015 17:09:Chester Burk RN) Spontaneous Abortions: 0 (11/07/2015 17:09:Chester Burk RN) Induced Abortions: 0 (11/07/2015 17:09:Chester Burk RN) Livin (11/07/2015 17:09:Chester Burk RN) Cesareans: 0 (11/07/2015 17:09:Chester Burk RN) VBACs: 0 (11/07/2015 17:09:Chester Burk RN) Ectopic: 0 (11/07/2015 17:09:Chester Burk RN) Multiple Births: 0 (11/07/2015 17:09:Chesetr Burk RN) Baby, Number in Womb: 1 (02/28/2016 21:37:Tabitha Rothman RN) CARE Primary Onsite Case Manager: [facility] (11/07/2015 17:09:Chester Burk RN) Adequate Care: Yes (11/07/2015 17:09:Winifred Will RN) Height (in): 60 (03/04/2016 09:42:QS system process) ALLERGIES Medication Allergy: No (11/07/2015 17:09:Chester Burk RN) Medication Allergies: No Known Allergies (03/04/2016) (03/04/2016 09:41:QS system process) Latex Allergy: No Latex Allergies (11/07/2015 17:09:Arlen Otero RN) Food Allergies: None (11/07/2015 17:09:Winifred Will RN) Environmental Allergies: None (11/07/2015 17:09:Winifred Will RN) COMMUNICATION Primary Language: Cuban (11/07/2015 17:09:Chester Burk RN) Medical Tx Preferred Language: Cuban; Castilian (11/07/2015 17:09:Chester Burk RN) Peruvian Communication Ability: 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, 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 (11/07/2015 17:09:Chester Burk RN) Communication Barrier(s): Language barrier; Hearing deficit (11/07/2015 17:09:Arlen Otero RN) DEMOGRAPHICS Address: [place] [address] (11/07/2015 16:59:QS system process) Zipcode: [phone] (11/07/2015 16:59:QS system process) Home (11/07/2015 16:59:QS system process) SSN: [id number] (11/07/2015 16:59:QS system process) Next of Kin Name: ELIN CLAROS (11/07/2015 16:59:QS system process) Next of Kin (11/07/2015 16:59:QS system process) Next of Kin Relationship: SPO (11/07/2015 16:59:QS system process) Date of : 1990 (11/07/2015 16:59:QS system process) Marital Status: Single (11/07/2015 16:59:QS system process) Sex: Female (11/07/2015 16:59:QS system process) Race: Other (11/07/2015 16:59:QS system process) Ethnicity: or (11/07/2015 16:59:QS system process) Yarsanism: Other (11/07/2015 16:59:QS system process) DRUG AND ALCOHOL USE Alcohol: No (11/07/2015 17:09:Winifred Will RN) Cigarettes: Never Smoker. [id number] (11/07/2015 17:09:Winifred Will RN) Marijuana: No (11/07/2015 17:09:Winifred Will RN) Cocaine: No (11/07/2015 17:09:Winifred Will RN) Other Illicit Drugs: No (11/07/2015 17:09:Winifred Will RN) VACCINE HISTORY Influenza Vaccine: Yes (11/07/2015 17:09:Gia Houston RN) Pneumococcal Vaccine: No (Annotations: Data stored by N on behalf of user) (11/07/2015 17:09:Racheal Zimmerman RN) Tetanus Vaccine: Yes (11/07/2015 17:09:Gia Houston RN) Tdap Vaccine: Yes (11/07/2015 17:09:Gia Houston RN) Hepatitis B Vaccine: No (11/07/2015 17:09:Gia Houston RN) Special Collections Librarian: [facility] (11/07/2015 17:09:Gia Houston RN) Feeding Preference: Both (11/07/2015 17:09:Gia Houston RN) Benefit of Breast Feed Discussed: Yes (11/07/2015 17:09:Gia Houston RN) Circumcision: No (11/07/2015 17:09:Gia Houston RN) Tubal Ligation: No (11/07/2015 17:09:Gia Houston RN) Tubal Authorization Signed: N/A (11/07/2015 17:09:Gia Houston RN) Consent: N/A (11/07/2015 17:09:Gia Houston RN) Consent Signed: N/A (11/07/2015 17:09:Gia Houston RN) Pain Management Plans: Natural; Medications (11/07/2015 17:09:Gia Houston RN) Plans for Labor and Delivery: None (11/07/2015 17:09:Gia Houston RN) Support Person: Markel (11/07/2015 17:09:Gia Houston RN) Support Person Relationship: (11/07/2015 17:09:Gia Houston RN) Cultural/Spritual Practice: No (11/07/2015 17:09:Gia Houston RN) Spir/Cult Dietary Needs: No (11/07/2015 17:09:Gia Houston RN) LIVING SITUATION/DISCHARGE PLAN Living Arrangements: House (11/07/2015 17:09:Gia Houston RN) Adequate Access to:: Electric; Heat; Refrigeration; Plumbing/Running water; Phone; Transportation (11/07/2015 17:09:Gia Houston RN) WIC Program: No (11/07/2015 17:09:Gia Houston RN) Discharge [place] Operator Person: Markel (11/07/2015 17:09:Gia Houston RN) Person to Help after Discharge: Markel (11/07/2015 17:09:Gia Houston RN) Currently Using Commun Resources: No (11/07/2015 17:09:Gia Houston RN) Outside Agency/Casting Inspector: N/A (11/07/2015 17:09:Gia Houston RN) Car Seat for Discharge: Yes (11/07/2015 17:09:Gia Houston RN) Adoption Requested: Yes (11/07/2015 17:09:Gia Houston RN) Pt Contact w/infant Post : N/A (11/07/2015 17:09:Gia Houston RN) LABS Blood Type: O Positive (11/07/2015 17:09:Lindsay Camarena RN) Antibody Screen: negative (11/07/2015 17:09:Lindsay Camarena RN) Hemoglobin: 11.0 L (03/05/2016 07:32:QS system process) Hematocrit: 35.0 L (03/05/2016 07:32:QS system process) MCV: 88 (03/05/2016 07:32:QS system process) Group Beta Strep: Negative (Annotations: Data stored by [facility] on behalf of user) (11/07/2015 17:09:Arlen Otero RN) Gonorrhea: Negative (11/07/2015 17:09:Lindsay Camarena RN) Chlamydia: Negative (11/07/2015 17:09:Lindsay Camarena RN) HIV Results: nonreactive (11/07/2015 17:09:Lindsay Camarena RN) Hepatitis B: Negative (11/07/2015 17:09:Lindsay Camarena RN) Rubella: Immune (11/07/2015 17:09:Lindsay Camarena RN) Varicella: Non Susceptible (11/07/2015 17:09:Lindsay Camarena RN) Other Lab Procedures/Results: pos GBS in urine-treat (11/07/2015 17:09:Lindsay Camarena RN) OB/PREVIOUS HISTORY Previous Procedures: Ultrasound (11/07/2015 17:09:Winifred Will RN) Current Procedures: Ultrasound (11/07/2015 17:09:Winifred Will RN) History of Previous : No (11/07/2015 17:09:Winifred Will RN) History of Gestational Diabetes: No (11/07/2015 17:09:Winifred Will RN) History of PIH: No (11/07/2015 17:09:Winifred Will RN) History of Incompetent Cervix: No (11/07/2015 17:09:Winifred Will RN) History of Placenta Previa/Abrup: No (11/07/2015 17:09:Winifred Will RN) History of Macrosomia: No (11/07/2015 17:09:Winifred Will RN) History of IUGR: No (11/07/2015 17:09:Winifred Will RN) History of Hemorrhage: No (11/07/2015 17:09:Winifred Will RN) History of Loss/Stillborn: No (11/07/2015 17:09:Winifred Will RN) History of : No (11/07/2015 17:09:Winifred Will RN) History of D (Rh) Sensitization: No (11/07/2015 17:09:Winifred Will RN) History Recurrent Loss/Stillborn: No (11/07/2015 17:09:Winifred Will RN) History Depression/PP Depression: No (11/07/2015 17:09:Winifred Will RN) History of Uterine Anomaly/JENNIFFER: No (11/07/2015 17:09:Winifred Will RN) History of Infertility: No (11/07/2015 17:09:Winifred Will RN) History of ART Treatment: No (11/07/2015 17:09:Winifred Will RN) History of JENNIFFER: No (11/07/2015 17:09:Winifred Will RN) Comments Obstetrical History: G1 - 05/2009 - at 38wks, 3.249kg (in [place]) G2 - current (11/07/2015 17:09:Gia Houston RN) MEDICAL HISTORY Med Hx Diabetes: No (11/07/2015 17:09:Winifred Will RN) Med Hx Hypertension: No (11/07/2015 17:09:Winifred Will RN) Med Hx Heart Disease: No (11/07/2015 17:09:Winifred Will RN) Med Hx Autoimmune Disorder: No (11/07/2015 17:09:Winifred Will RN) Med Hx Kidney Disease/UTI: No (11/07/2015 17:09:Winifred Will RN) Med Hx Neurologic/Epilepsy: No (11/07/2015 17:09:Winifred Will RN) Med Hx Psychiatric Disorders: No (11/07/2015 17:09:Winifred Will RN) Med Hx Hepatitis/Liver Disease: No (11/07/2015 17:09:Winifred Will RN) Med Hx Varicosities/Phlebitis: No (11/07/2015 17:09:Winifred Will RN) Med Hx Thyroid Dysfunction: No (11/07/2015 17:09:Winifred Will RN) Med Hx Trauma/Violence: No (11/07/2015 17:09:Winifred Will RN) Med Hx Blood Transfusion: No (11/07/2015 17:09:Winifred Will RN) Med Hx Pulmonary (Asthma,TB): No (11/07/2015 17:09:Winifred Will RN) Med Hx Breast: No (11/07/2015 17:09:Winifred Will RN) Med Hx AMUSEMENT RIDE INSPECTOR Surgery: No (11/07/2015 17:09:Winifred Will RN) Med Hx Hospitalization/Surgery: Yes (11/07/2015 17:09:Gia Houston RN) Med Hx Anesthetic Complications: No (11/07/2015 17:09:Winifred Will RN) Med Hx Abnormal Pap Smear: No (11/07/2015 17:09:Winifred Will RN) Other Medical Diseases: No (11/07/2015 17:09:Winifred Will RN) Med Hx Significant Family Hx: No (11/07/2015 17:09:Winifred Will RN) Details of Med/Surg Hx: Hospitalized for first (11/07/2015 17:09:Gia Houston RN) INFECTIOUS HISTORY Inf Hx Gonorrhea: No (11/07/2015 17:09:Winifred Will RN) Inf Hx Chlamydia: No (11/07/2015 17:09:Winifred Will RN) Inf Hx Syphilis: No (11/07/2015 17:09:Winifred Will RN) Inf Hx HIV/AIDS: No (11/07/2015 17:09:Winifred Will RN) Inf Hx Human Papilloma Virus: No (11/07/2015 17:09:Winifred Will RN) Inf Hx Pt/Partner Genital Herpes: No (11/07/2015 17:09:Winifred Will RN) Inf Hx Tuberculosis/Exposure: No (11/07/2015 17:09:Winifred Will RN) Inf Hx Hepatitis B,C: No (11/07/2015 17:09:Winifred Will RN) Inf Hx Rash or Viral Illness: No (11/07/2015 17:09:Winifred Will RN) GENETIC HISTORY Gen Hx Age >=35 at DANK: No (11/07/2015 17:09:Winifred Will RN) Gen Hx Thalassemia: No (11/07/2015 17:09:Winifred Will RN) Gen Hx Congenital Heart Defect: No (11/07/2015 17:09:Winifred Will RN) Gen Hx Neural Tube Defect: No (11/07/2015 17:09:Winifred Will RN) Gen Hx Down's Syndrome: No (11/07/2015 17:09:Winifred Will RN) Gen Hx Davey-Sachs: No (11/07/2015 17:09:Winifred Will RN) Gen Hx Tami: No (11/07/2015 17:09:Winifred Will RN) Gen Hx Familial Dysautonomia: No (11/07/2015 17:09:Winifred Will RN) Gen Hx Sickle Cell Disease/Trait: No (11/07/2015 17:09:Winifred Will RN) Gen Hx Hemophilia/Blood Disorder: No (11/07/2015 17:09:Winifred Will RN) Gen Hx Muscular Dystrophy: No (11/07/2015 17:09:Winifred Will RN) Gen Hx Cystic Fibrosis: No (11/07/2015 17:09:Winifred Will RN) Gen Hx Huntingtons Chorea: No (11/07/2015 17:09:Winifred Will RN) Gen Hx Mental Retardation/Autism: No (11/07/2015 17:09:Winifred Will RN) Gen Hx Tested for Fragile X: No (11/07/2015 17:09:Winifred Will RN) Gen Hx Other Inher/Chromosomal: No (11/07/2015 17:09:Winifred Will RN) Gen Hx Maternal Metabolic DO: No (11/07/2015 17:09:Winifred Will RN) Gen Hx Pt Father or FOB Defect: No (11/07/2015 17:09:Winifred Will RN) Gen Hx Other Genetic History: No (11/07/2015 17:09:Winifred Will RN) Gen Hx Drugs/Meds since LMP: Yes (11/07/2015 17:09:Gia Houston RN) Gen Hx Medications: pnv, tums, tylenol (11/07/2015 17:09:Gia Houston RN)
--- NOTE | 2016-03-13 06:06 | L&D Current Admission ---
Current Admit Datetime Report Generated by CPN: 03/13/2016 06:00 ADMISSION INFORMATION Current Admit Date/Time: 03/04/2016 09:40 (03/04/2016 10:26:Arlen Otero RN) Reason for Admission: Onset of Labor; Rupture of Membranes (03/04/2016 10:26:Arlen Otero RN) Chief Complaint: Contractions; Suspected Rupture of Membranes (03/04/2016 10:26:Arlen Otero RN) Meds During -Oth: Denies (03/04/2016 10:26:Arlen Otero RN) EGA per Dates: 40.0 (03/04/2016 10:26:QS system process) Method of Arrival: Wheelchair (03/04/2016 10:26:Arlen Otero RN) Admitted From: Home (03/04/2016 10:26:Arlen Otero RN) Reason for Induction: Not Applicable (03/04/2016 10:26:Arlen Otero RN) Records Available: Yes (03/04/2016 10:26:Arlen Otero RN) General Admission Information: Reviewed (03/04/2016 10:26:Areln Otero RN) General Admission Reviewed By: Arlen Otero RN (03/04/2016 10:26:Arlen Otero RN) BELONGINGS/ADVANCED DIRECTIVES Valuables/Personal Effects: Purse/Wallet; Cell Phone; Jewelry (03/04/2016 10:26:Arlen Otero RN) Other Belongings: See [facility] belongings form (03/04/2016 10:26:Arlen Otero RN) Disposition of Belongings: Kept with Patient (03/04/2016 10:26:Arlen Otero RN) Advance Direct for Healthcare: No, and Wants No Information (03/04/2016 10:26:Arlen Otero RN) Durable Power of Glass Selector: No (03/04/2016 10:26:Arlen Otero RN) Living Will: No (03/04/2016 10:26:Arlen Otero RN) Organ Donor: No (03/04/2016 10:26:Arlen Otero RN) Pt Rights Information Given: Yes (03/04/2016 10:26:Arlen Otero RN) Pt Understands Pt Rights: Yes (03/04/2016 10:26:Arlen Otero RN) LEARNING ASSESSMENT Knowledge Level: Understands L_D Process; Understands Diagnosis (03/04/2016 10:26:Arlen Otero RN) Barriers to Learning: Communication Barrier (03/04/2016 10:26:Arlen Otero RN) Learning Readiness: Motivated (03/04/2016 10:26:Arlen Otero RN) Learns Best By: 1 to 1 Instruction; Reading (03/04/2016 10:26:Arlen Otero RN) Learning Needs: Labor and Delivery Process; Pain Management; Symptoms to Report; Treatment Plan; Medication; Diagnosis; Nutrition; Equipment; Care; Community Resources (03/04/2016 10:26:Arlen Otero RN) Learning Assessment Comments: Patient is romansh speaking; Rigoti on unit (03/04/2016 10:26:Arlen Otero RN) DOMESTIC VIOLANCE SCREENING Dom Viol Threatened/Hurt: No (03/04/2016 10:26:Arlen Otero RN) Hx of Abuse/Neglect past 2yrs: No (03/04/2016 10:26:Arlen Otero RN) Feel Unsafe Going Home: No (03/04/2016 10:26:Arlen Otero RN) Addt'l Observ Indicating Abuse: No (03/04/2016 10:26:Arlen Otero RN) Reason Unable to Complete Screen: N/A, Screen Completed (03/04/2016 10:26:Arlen Otero RN) Considered Personal Harm/Suicide: No (03/04/2016 10:26:Arlen Otero RN) NUTRITIONAL/FUNCTIONAL SCREENING Problem with Appetite >5 Days: No (03/04/2016 10:26:Arlen Otero RN) Chew/Swallow Difficulties: No (03/04/2016 10:26:Arlen Otero RN) Inappropriate Wt Gain/Loss: No (03/04/2016 10:26:Arlen Otero RN) Presence Skin Breakdown/Ulcer: No (03/04/2016 10:26:Arlen Otero RN) Special Diet: No (03/04/2016 10:26:Arlen Otero RN) Pt Requests Nurse Practitioner Adult Visit: No (03/04/2016 10:26:Arlen Otero RN) Hx of Any of the Following?: N/A (03/04/2016 10:26:Arlen Otero RN) New Diagnosis of: N/A (03/04/2016 10:26:Arlen Otero RN) Requires Assist w/Ambulation: No (03/04/2016 10:26:Arlen Otero RN) Uses Assist Device to Ambulate: No (03/04/2016 10:26:Arlen Otero RN) Pt Requires Help w/ADL's: No (03/04/2016 10:26:Arlen Otero RN)
== END 2016-03-06 13:42 | disposition home or self-care (01) | DRG 775 ==
LOC: LC 09:29 → LR 09:59 → 2N 15:53
PROVIDERS: ADMIT Obstetrics & Gynecology; ATTEND Obstetrics & Gynecology
PROC: 10E0XZZ Delivery of Products of Conception, External Approach (ICD-10-PCS; principal; 2016-03-04)
PROC: 0HQ9XZZ Repair Perineum Skin, External Approach (ICD-10-PCS; 2016-03-04)
DX: O66.0 Obstructed labor due to shoulder dystocia (principal); O64.0XX0 Obstructed labor due to incomplete rotation of fetal head, not applicable or unspecified; O69.1XX0 Labor and delivery complicated by cord around neck, with compression, not applicable or unspecified; O70.0 First degree perineal laceration during delivery; O76 Abnormality in fetal heart rate and rhythm complicating labor and delivery; Z3A.40 40 weeks gestation of pregnancy; Z37.0 Single live birth
CPT/HCPCS: 36415; 80307; 81005; 82803; 84112; 85025; 85027; 86592; 86850; 86900; 86901; 88307; J2210; J2590; J3490

== ENCOUNTER 2017-06-14 12:42 | Emergency (ER) | payer SELFPAY ==
[2017-06-14] MEDS ORDERED: DEXAMETHASONE SOD PHOS INJ 10 MG/1 ML VIAL IM ONE (13:23)
--- NOTE | 2017-06-14 13:29 | ER Document Report ---
HPI - HPI Pain Level: 2 Notes: Patient is a 27-year-old female with no significant past medical history who presents to the ED complaining of a rash to her bilateral upper arms x1mo. patient states that the rash is pruritic, but does not cause any pain. She has not tried any medicines for her symptoms. She has not been ill recently. She is not aware of any exposure to new chemicals or detergents as well as insect bites. She is eating and drinking without difficulties. She is urinating normally, smoking, IV drug use. Denies any headache, fever, neck pain, URI, sore throat, chest pain, palpitations, syncope, cough, shortness of breath, wheeze, dyspnea, abdominal pain, nausea/vomiting/diarrhea, urinary retention, dysuria, hematuria, loss of control of bowel or bladder, numbness/tingling, muscle paralysis/weakness. - ROS Systems Reviewed and Negative: Yes All other systems reviewed and negative - REPRODUCTIVE Reproductive: REPORTS: : Past Medical History - Social History Smoking Status: Never Smoker Family History: Reviewed & Not Pertinent - Immunizations Hx Diphtheria, Pertussis, Tetanus Vaccination: Yes Vertical Provider Document - CONSTITUTIONAL Agree With Documented VS: Yes Notes: PHYSICAL EXAMINATION: GENERAL: Well-appearing, well-nourished and in no acute distress. HEAD: Atraumatic, normocephalic. EYES: Pupils equal round and reactive to light, extraocular movements intact, sclera anicteric, conjunctiva are normal. ENT: Nares patent and without discharge. oropharynx clear without exudates. No tonsilar hypertrophy or erythema. Moist mucous membranes. NECK: Normal range of motion, supple without lymphadenopathy LUNGS: Breath sounds clear to auscultation bilaterally and equal. No wheezes rales or rhonchi. HEART: Regular rate and rhythm without murmurs, rubs, gallops. Musculoskeletal: UE's b/l: FROM to passive/active. Strength 5+/5. Extremities: No cyanosis, clubbing, or edema b/l. Peripheral pulses 2+. Capillary refill less than 3 seconds. NEUROLOGICAL: Cranial nerves grossly intact. Normal speech, normal gait. Normal sensory, motor exams PSYCH: Normal mood, normal affect. SKIN: There are maculopapular lesions to the upper arms b/l and to the forearms w/o excoriations or obvious burrows. No abscess, erythema, streaks, or discharge. - INFECTION CONTROL TRAVEL OUTSIDE OF THE [place] IN LAST 30 DAYS: No Course - Re-evaluation Re-evalutation: 06/14/17 13:26 Patient is an afebrile, well-hydrated, 27-year-old female who presents to the ED with a nonspecific rash to her upper arms, suspect possible allergy versus keratosis pilaris. Vitals are acceptable. PE is otherwise unremarkable. Decadron given IM today. I will send her home with a perception for triamcinolone cream as well. Low suspicion for any sepsis, SJS, cellulitis, or other systemic emergent condition at this time. Patient to monitor symptoms closely and seek medical attention with any acute changes. Patient's symptoms have been ongoing over the last month. Recheck with your PCM in 3-5 days. Consider consult with dermatology. Return to the ED with any worsening/ concerning symptoms otherwise as reviewed discharge. Patient is in agreement. - Vital Signs Vital signs: Temp Pulse Resp BP Pulse Ox 97.9 F 78 16 115/62 98 06/14/17 12:54 06/14/17 12:54 06/14/17 12:54 06/14/17 12:54 06/14/17 12:54 Discharge - Discharge Clinical Impression: Rash and nonspecific skin eruption Condition: Stable Disposition: HOME, SELF-CARE Additional Instructions: Keep the skin clean Wash with soft soap and water Moisturize Tylenol/ibuprofen if needed Take medication as directed Monitor for any worsening symptoms Recheck with your PCM in 3-5 days Schedule a consult with Dermatology for ongoing/worsening symptoms Return to the ED with any worsening symptoms and/or development of fever, headache, chest pain, palpitations, syncope, shortness of breath, trouble breathing, abdominal pain, n/v/d, abscess, purulent discharge, red streaks, worsening swelling, or other worsening symptoms that are concerning to you. Prescriptions: Triamcinolone Acetonide [Aristocort 0.5% Cream 15 gm] 1 applic TP BID #1 tube Referrals: DES CHACON DO [ACTIVE STAFF] - Follow up as needed
[2017-06-14 14:11] VITALS: BP 103/69
== END 2017-06-14 14:08 | disposition home or self-care (01) ==
LOC: ER 12:42
DX: O26.899 Other specified pregnancy related conditions, unspecified trimester (principal); R21 Rash and other nonspecific skin eruption; O99.719 Diseases of the skin and subcutaneous tissue complicating pregnancy, unspecified trimester; L29.8 Other pruritus; Z3A.00 Weeks of gestation of pregnancy not specified
CPT/HCPCS: 99283; 96372; J1100